=== PATIENT | male | born 1945 | race Caucasian/White ===

== ENCOUNTER 2016-09-04 22:37 | Inpatient (IN) | payer MEDICARE, OTHER ==
[2016-09-04] MEDS ORDERED: FUROSEMIDE INJ/PF 40 MG/4 ML SDV IV ONE (22:44)
[2016-09-04 23:07] LABS: HEMATOCRIT 42.7 % (37.9-51.0); HEMOGLOBIN 13.9 g/dL (13.5-17.0); MEAN CORPUSCULAR HEMOGLOBIN 27.7 pg (27.0-33.4); MEAN CORPUSCULAR HGB CONC 32.6 g/dL (32.0-36.0); MEAN CORPUSCULAR VOLUME 85 fl (80-97); RED BLOOD COUNT 5.01 10^6/uL (4.35-5.55); RED CELL DISTRIBUTION WIDTH 14.3 % (11.5-14.0); WHITE BLOOD COUNT 17.3 10^3/uL (4.0-10.5)
[2016-09-04 23:17] LABS: ALANINE AMINOTRANSFERASE 34 U/L (21-72); ALBUMIN 2.8 g/dL (3.5-5.0); ALKALINE PHOSPHATASE 140 U/L (38-126); ANION GAP 10 (5-19); ASPARTATE AMINO TRANSFERASE 20 U/L (17-59); BILIRUBIN,TOTAL 0.5 mg/dL (0.2-1.3); BLOOD UREA NITROGEN 23 mg/dL (7-20); CALCIUM 8.6 mg/dL (8.4-10.2); CARBON DIOXIDE 24 mmol/L (22-30); CHLORIDE 107 mmol/L (98-107); CREATINE KINASE 161 U/L (55-170); CREATININE RESULT 1.82 mg/dL (0.52-1.25); GLUCOSE 141 mg/dL (75-110); POTASSIUM 4.2 mmol/L (3.6-5.0); SODIUM 141.3 mmol/L (137-145); TOTAL PROTEIN 6.1 g/dL (6.3-8.2)
[2016-09-04 23:25] LABS: BAND NEUTROPHILS % (MANUAL) 5 % (3-5); BASOPHILS % (MANUAL) 0 % (0-2); EOSINOPHILS % (MANUAL) 0 % (0-6); LYMPHOCYTES % (MANUAL) 7 % (13-45); TOTAL CELLS COUNTED 100; TOXIC GRANULATION SLIGHT
[2016-09-04 23:26] LABS: ANISOCYTOSIS SLIGHT; BURR CELLS 1+; PLATELET CLUMPS PRESENT
[2016-09-04 23:27] LABS: CREATINE KINASE MB 1.23 ng/mL (<4.55); TROPONIN I 0.022 ng/mL
--- NOTE | 2016-09-04 23:41 | ER Document Report ---
ED General - General Chief Complaint: Breathing Difficulty Stated Complaint: RESPIRATORY PROBLEM Notes: Patient is a 71-year-old male presents with complaint of difficulty breathing. His held his Lasix 3 days ago because it is making him urinate too much. His difficulty getting up to bathroom on his own and also has urinary incontinence. He has a history of CHF. He started worsening breathing this morning which became much worse tonight. Paramedics arrived he was hypoxic and working hard to breathe. They placed Nitropaste on him and placement see Pap which has helped improve him. He denies any chest pain. Denies abdominal pain. He's had increased swelling in his legs last 24 hours. No fevers. No infections. No other complaints at this time. TRAVEL OUTSIDE OF THE [place] IN LAST 30 DAYS: No - Related Data Allergies/Adverse Reactions: Penicillins Allergy (Verified 04/13/16 19:16) Past Medical History - General Information source: Patient, Relative, Emergency Med Personnel - Social History Smoking Status: Unknown if Ever Smoked Frequency of alcohol use: None Drug Abuse: None Family History: Reviewed & Not Pertinent - Past Medical History Cardiac Medical History: Reports: Hx Congestive Heart Failure, Hx Hypercholesterolemia, Hx Hypertension Endocrine Medical History: Reports: Hx Diabetes Mellitus Type 2 Malignancy Medical History: Reports Hx Prostate Cancer Psychiatric Medical History: Reports: Hx Depression Past Surgical History: Reports: Hx Genitourinary Surgery - Prostate removed, Hx Orthopedic Surgery - cervical X3, lumbar X1 - Immunizations Hx Diphtheria, Pertussis, Tetanus Vaccination: Yes Hx Pneumococcal Vaccination: 06/06/11 Review of Systems - Review of Systems Notes: My Normal Review Basic REVIEW OF SYSTEMS: CONSTITUTIONAL : Denies fever, chills, or sweats. Denies recent illness. EENT: Denies eye, ear, throat, or mouth pain or symptoms. Denies nasal or sinus congestion. CARDIOVASCULAR: Denies chest pain. RESPIRATORY: Difficulty breathing GASTROINTESTINAL: Denies abdominal pain. Denies nausea, vomiting, or diarrhea. Denies constipation. Last BM: MUSCULOSKELETAL: Leg edema SKIN: Denies rash or skin lesions. NEUROLOGICAL: Denies altered mental status or loss of consciousness. Denies headache. Denies weakness or paralysis or loss of use of either side. Denies problems with gait or speech. Denies sensory or motor loss. ALL OTHER SYSTEMS REVIEWED AND NEGATIVE. Physical Exam - Vital signs Vitals: Resp Pulse Ox 20 99 09/04/16 22:40 09/04/16 22:40 - Notes Notes: General Appearance: Well nourished, alert, cooperative, mild to moderate acute distress, no obvious discomfort. Vitals: reviewed, See vital signs table. Head: no swelling or tenderness to the head Eyes: PERRL, EOMI, Conjuctiva clear Mouth: No decreasd moisture Neck: Supple, no neck tenderness, No thyromegaly Lungs: No wheezing, bibasilar rales, No rhonci, No accessory muscle use, good air exchange bilaterally. Heart: Normal rate, Regular rythm, No murmur, no rub Abdomen: Normal BS, soft, No rigidity, No abdominal tenderness, No guarding, no rebound, no abdominal masses, no organomegaly Extremities: strength 5/5 in all extremities, good pulses in all extremities, no swelling or tenderness in the extremities, no edema. Skin: warm, dry, appropriate color, no rash Neuro: speech clear, oriented x 3, normal affect, responds appropriately to questions. Course - Vital Signs Vital signs: Temp Pulse Resp BP Pulse Ox 101.9 F H 20 114/104 H 96 09/05/16 00:02 09/05/16 00:01 09/05/16 00:02 09/05/16 00:02 - Laboratory Result Diagrams: 09/04/16 22:45 09/04/16 22:45 Laboratory results interpreted by me: 09/04/16 09/04/16 09/04/16 22:45 22:45 22:45 WBC 17.3 H RDW 14.3 H Seg Neuts % (Manual) 86 H Lymphocytes % (Manual) 7 L Monocytes % (Manual) 2 L Abs Neuts (Manual) 15.7 H BUN 23 H Creatinine 1.82 H Est GFR ( Amer) 45 L Est GFR (Non-Af Amer) 37 L Glucose 141 H Alkaline Phosphatase 140 H NT-Pro-B Natriuret Pep 4390 H Total Protein 6.1 L Albumin 2.8 L - EKG Interpretation by Me Additional EKG results interpreted by me: 09/05/16 00:03 EKG is reviewed and interpreted by me. EKG shows normal sinus rhythm with rate of 80 bpm. Patient has one lead of ST segment elevation in lead 3. Thinks is related to his intraventricular conduction delay. There he does have a right bundle branch block. There is no cervical ST segment depression. This no other areas of ST segment elevation. This is not concerning for ischemia. NE interval is slightly prolonged. QRS duration QTC of vitals are prolonged. Old EKG for comparison is from 04/13/2016. - Transfer of Care Notes: 09/05/16 01:21 Patient developed a fever. His temp is 101. Will given Tylenol., Levaquin being that he had mostly respiratory symptoms associated with fever. Chest x- rays was normal however to me it appears he has fast or vesicle congestion and he had a lot of rails on initial presentation suggesting palmar edema especially with a history of stopping his Lasix 3 days ago and having increased edema in his legs. He doesn't history of urinary incontinence. We did place a Ghosh catheter. I will send the urine for urinalysis to see if there is any source of infection there either. He has had some congestion and sinus pressure last few days. This could've lead to pneumonia or sinus infection. I spoke with the hospital she agrees to that the patient. He is looking much more comfortable with the BiPAP and clinically is improving. Discharge - Discharge Clinical Impression: Congestive heart failure Qualifiers: Congestive heart failure type: unspecified congestive heart failure type Congestive heart failure chronicity: acute on chronic Qualified Code(s): I50.9 - Heart failure, unspecified Fever Qualifiers: Fever type: unspecified Qualified Code(s): R50.9 - Fever, unspecified Condition: Stable Disposition: ADMITTED OBSERVATION Admitting Provider: Hospitalist Unit Admitted: [facility]
[2016-09-05] MEDS ORDERED: LEVOFLOXACIN 750 MG/D5W RTU 150 ML IV ONE (01:17)
[2016-09-05] MEDS ORDERED: ACETAMINOPHEN 325 MG TABLET PO ONE (01:18)
[2016-09-05] MEDS ORDERED: FENTANYL CITRATE INJ/PF 100 MCG/2 ML AMPUL IV ONE ×2 (01:23→02:19)
[2016-09-05 02:19] LABS: VENOUS BLOOD BASE EXCESS -0.1 mmol/L; VENOUS BLOOD HCO3 23.7 mmol/L (20-32); VENOUS BLOOD PCO2 36.4 mmHg (35-63); VENOUS BLOOD PH 7.43 (7.30-7.42)
[2016-09-05 02:46] LABS: APPEARANCE,URINE CLEAR; BILIRUBIN,URINE NEGATIVE (NEGATIVE); GLUCOSE, URINE 50 mg/dL (NEGATIVE); KETONES,URINE NEGATIVE (NEGATIVE); LEUKOCYTE ESTERASE,URINE NEGATIVE (NEGATIVE); NITRITE,URINE NEGATIVE (NEGATIVE); PROTEIN,URINE 100 mg/dL (NEGATIVE); URINE SPECIFIC GRAVITY 1.008; UROBILINOGEN,URINE NEGATIVE mg/dL (<2.0)
[2016-09-05] MEDS ORDERED: IPRATROPIUM/ALBUTEROL 0.5-2.5 MG/3 ML AMPUL NEB PRN (04:06)
[2016-09-05] MEDS ORDERED: GUAIFENESIN SYRP 200 MG/10 ML UDC PO PRN (04:06)
[2016-09-05] MEDS ORDERED: GLUCAGON,HUMAN RECOMB 1 MG INJ IM PRN (04:08)
[2016-09-05] MEDS ORDERED: DEXTROSE 50%-WATER 25 GM/50 ML DISP.SYRIN IV PRN ×2 (04:08)
[2016-09-05] MEDS ORDERED: DEXTROSE 40% GEL 15 GM TUBE PO PRN ×2 (04:08)
[2016-09-05] MEDS ORDERED: PHARMACY COMMUNICATION ORDER MC NR (04:15)
--- NOTE | 2016-09-05 04:36 | PDOC H&P ---
History of Present Illness Admission Date/PCP: 09/05/16 02:10 IGNACIA SHORT MD Patient complains of: breathing problems History of Present Illness: BERNADETTE BURGOS is a 71 year old male with underlying chronic diastolic congestive heart failure who presents to the emergency room for evaluation of above complaint area Patient has been discussed with emergency room physician who evaluated the patient. 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 This, combined with his Lasix results in the need for not unexpected frequent urination. He also has problems over the last 6-7 months with intermittent difficulty walking on a waxing and waning basis. Is actually scheduled to be seen at [facility] by neurology for evaluation of this difficulty. As a result of the above factors, held his Lasix for the previous 3 days. During that time span, he has experienced slowly progressive difficulty breathing, along with progressive lower extremity swelling. Breathing difficulty particular worsened over the few hours prior to his being brought to the emergency room. EMS reported the patient being hypoxic, with fairly prominent work of breathing. Nitro paste was placed, along with CPAP which improved his symptoms. Was subsequently placed on BiPAP in the emergency room, along with intravenous Lasix and he is breathing much more comfortably now, tolerating being off BiPAP without difficulty. Has noted subjective fever during the above time span. His occasional cough has increased in frequency and is now productive of increased amounts of phlegm. No known chronic lung pathology including asthma or COPD. Up-to-date with both flu and pneumonia vaccinations. Fever to 101.9 on arrival in the emergency room. No previous myocardial infarction, pulmonary embolus, or DVT. Patient also has frequent contact with a [id number] grandchild. Concerning his ambulatory difficulty, states this will gradually progress to the point where he simply cannot walk at all due to generalized weakness in his lower extremities. That has actually been the case on the . She states this is typically followed by gradual regaining of some of the strength in his lower extremities, to the point where he can get about with a walker. Concomitant medical problems include arthritis, easy bruising, status post excision of a number of skin cancers, type I diabetes mellitus, hyperlipidemia, partial hearing loss, stage III chronic kidney disease, and posttraumatic stress disorder. He also has a distant history of 3 separate seizure episodes, greater than 20 years ago. Is not currently on medication for same. Laboratory results are listed in [employer] and are reviewed. X-ray summary results are listed below, with full report(s) reviewed. . EKG reviewed and compared to prior tracing from April 14 of this year. Social history/personal habits: . Has children. Retired. No use of alcohol tobacco or illicit drugs. Should patient become mentally incapacitated, surrogate health care decision maker , who is present at his side with his approval.. Family History : Daughter has recently undergone thyroid surgery. Sister with heart problems. Father of a heart attack. Likewise for mother. Allergies/adverse reactions are listed in [employer] and are reviewed. Uncertain if he can tolerate cephalosporins. Home medications are reviewed by bottle review and discussion with patient and and are to be reconciled by nursing staff in [facility]. Home medications initially autopopulated into [employer] may not accurately reflect patient's true medications, dosages, and/or frequencies. REVIEW OF SYSTEMS: Constitutional: See history and present illness. Eyes: Wears glasses. ENT: No swallowing problems or complaints. Partial hearing loss. Pulmonary: See history and present illness. Cardiovascular: See history and present illness. Gastrointestinal: No current complaints, including nausea or vomiting. Skin: No current complaints, including rashes. Hematologic: Easy bruising. Neurologic: See history and present illness. Musculoskeletal: Joint pain from arthritis. Psychiatric: Mild Anxiety depression; denies suicidal or homicidal ideation. Endocrine: No current complaints, including polyuria. Genitourinary: No current complaints, including dysuria. PHYSICAL EXAMINATION: 5 feet 9 inches tall. 118.8 kg. BMI 38.7 kg/m. Blood pressure 155/71. Pulse 86 and regular. 96% saturation on 2 L oxygen per nasal cannula. Respirations are 18 and unlabored. Temperature 100.6; 101.9 earlier. Obese otherwise well-developed male appearing perhaps a bit older than his stated age. Appears slightly fatigued, but otherwise pleasant awake alert and cooperative. Mildly anxious, although no agitation. is present at his side; patient approves. Skin is warm and slightly moist. No grossly obvious evidence of rash in areas of skin examined. No subcutaneous nodules palpated. ENT: Perhaps Mildly hard of hearing to normal conversation. Tongue midline on protrusion pink and slightly moist. Eyes: No scleral icterus. Pupils equal and reactive to light at 4 mm. [place] conjunctivae. Neck is supple and nontender to gentle active range of motion and palpation. Midline trachea. No palpable thyroid nodule mass enlargement or tenderness. Lymphatic: No palpable cervical or clavicular nodes. Neck and lymphatic exams limited by patient body habitus. Psychiatric: Reasonable insight into acute and chronic medical issues. Oriented to time location and why here. Lungs: Auscultation reveals equal breath sounds bilaterally. Faint brief expiratory wheeze on occasion bilaterally. No use of accessory respiratory muscles. Cardiovascular: Heart regular rate and rhythm, without gallop murmur or rub. No carotid or abdominal aortic bruits. Mild slightly pitting symmetric calf ankle and pedal edema; of note, states swelling has decreased since arrival in the emergency room and treatment. Faintly palpable dorsalis pedis pulses. Abdomen: soft, obese, nontender with positive bowel sounds. Unable to adequately evaluate abdomen for masses or organomegaly due to body habitus. Extremities: Feet are warm and dry. No calf tenderness to compression. Gentle manipulation of lower extremities fails to reveal any obvious evidence of injury or instability to knees hips or ankles. Neurologic: Moves upper extremities grossly normally. Patellar reflexes absent. Absent Babinski. Light touch is intact at feet. Dorsiflexion and plantarflexion of feet 5 / 5 and symmetric. Past Medical History Cardiac Medical History: Reports: Congestive Heart Failure - diastolic, Hyperlipidema, Hypertension Denies: DVT, Myocardial Infarction, Pulmonary Embolism Pulmonary Medical History: Denies: Asthma, Chronic Obstructive Pulmonary Disease (COPD) EENT Medical History: Reports: Eyes - glasses, Ears - PAUMA Denies: Throat Neurological Medical History: Reports: Seizures - X 3 > 20 yrs ago; no Rx, Other - ambulatory difficulty X 6-7 mos.; [facility] neuro appt, 09/22 Denies: Hemorrhagic CVA, Ischemic CVA Endocrine Medical History: Reports: Diabetes Mellitus Type 1 Denies: Diabetes Mellitus Type 2, Hyperthyroidism, Hypothyroidism Renal/ Medical History: Reports: Chronic Kidney Disease - III Malignancy Medical History: Reports: Skin Cancer, Other - s/p prostatectomy; bladder GI Medical History: Denies: Cirrhosis, Gastroesophageal Reflux Disease, Hepatitis, Peptic Ulcer Disease Musculoskeltal Medical History: Reports: Arthritis Skin Medical History: Denies: Eczema, Psoriasis Psychiatric Medical History: Reports: Depression, Post Traumatic Stress Disorder Denies: Alcohol Dependency, Substance Abuse, Tobacco Dependency Hematology: Reports: Other - easy bruising Infectious Medical History: Denies: Hepatitis B, Hepatitis C Past Surgical History Past Surgical History: Reports: Orthopedic Surgery - cervical X3, lumbar X1, Other - Excision of skin cancers. Total prostatectomy. Bladder surgery 3. Social History Information Source: Patient, Relative, Emergency Med Personnel, [facility] Records Lives with: Spouse/Significant other Smoking Status: Unknown if Ever Smoked Frequency of Alcohol Use: None Hx Recreational Drug Use: No Drugs: None Hx Prescription Drug Abuse: No - Advance Directive Resuscitation Status: Full Code Family History Family History: Reviewed & Not Pertinent Parental Family History Reviewed: Yes Children Family History Reviewed: Yes Sibling(s) Family History Reviewed.: Yes Medication/Allergy Home Medications: RX: Furosemide [Lasix] 40 mg PO DAILY 11/21/15 RX: Lisinopril 20 mg PO DAILY 11/21/15 RX: Metoprolol Tartrate [Lopressor 50 mg Tablet] 50 mg PO Q12H 11/21/15 RX: Pantoprazole Sodium 40 mg PO DAILY 11/21/15 RX: Rosuvastatin Calcium [Crestor 20 mg Tablet] 20 mg PO QHS 11/21/15 RX: Cetirizine HCl [All Day Allergy] 10 mg PO DAILY 04/14/16 RX: Bupropion HCl [Wellbutrin Xl 300mg 24hr Tablet] 1 tab PO DAILY 09/05/16 RX: Cholecalciferol (Vitamin D3) [Vitamin D3 1000 Unit Tablet] 1,000 unit PO DAILY 09/05/16 RX: Multivitamin/Iron/Folic Acid [Centrum Complete Multivit Tab] 1 each PO DAILY 09/05/16 RX: Acetaminophen [Tylenol 325 mg Tablet] 650 mg PO Q6HP PRN tablet 09/07/16 RX: Azithromycin [Zithromax 250 mg Tablet] 250 mg PO DAILY #5 tablet 09/07/16 RX: Glipizide [Glucotrol 5 mg Tablet] 5 mg PO BID tablet 09/07/16 RX: Guaifenesin [Mucinex Sr 600 mg Tablet.sa] 1,200 mg PO Q12 #30 tablet.sa 10/23 RX: Insulin Glargine,Hum.rec.anlog [Lantus Insulin 100 Unit/1 ml 10 ml] 40 unit SUBCUT BID unit 09/07/16 RX: Tramadol HCl [Ultram 50 mg Tablet] 50 mg PO Q6HP PRN #30 tablet 09/07/16 Allergies/Adverse Reactions: Penicillins Allergy (Verified 04/13/16 19:16) Physical Exam Vital Signs: Temp Pulse Resp BP Pulse Ox 100.6 F H 22 H 155/71 H 97 09/05/16 03:02 09/05/16 03:02 09/05/16 03:02 09/05/16 03:02 Results Laboratory Results: 09/05/16 02:15 Urine Color STRAW Urine Appearance CLEAR Urine pH 5.0 Ur Specific Jones 1.008 Urine Protein 100 H Urine Glucose (UA) 50 H Urine Ketones NEGATIVE Urine Blood MODERATE H Urine Nitrite NEGATIVE Ur Leukocyte Esterase NEGATIVE Urine WBC (Auto) 1 Urine RBC (Auto) 70 Impressions: Chest X-Ray 09/04/16 22:43 IMPRESSION: NO ACUTE RADIOGRAPHIC FINDING IN THE CHEST. Assessment & Plan - Diagnosis (1) Acute on chronic diastolic (congestive) heart failure Is this a current diagnosis for this admission?: YesPlan: Likely secondary to his not taking his Lasix for the past 3 days. Symptomatically much improved, tolerating nasal cannula oxygen, off BiPAP, with treatment so far. Excellent urine output so far. Repeat troponin. I have strongly encouraged patient not to get out of bed without notifying staff , to avoid a fall with injury. Knee high SCDs for DVT prophylaxis, along with subcutaneous heparin. Impression and plans were discussed with patient, and , both of whom concur. Time spent in evaluation and management of patient: 68 minutes. (2) Fever Qualifiers: Fever type: unspecified Qualified Code(s): R50.9 - Fever, unspecified Is this a current diagnosis for this admission?: YesPlan: No obvious specific source, but given patient's pulmonary complaints, will treat as for community-acquired pneumonia. No chronic underlying pulmonary pathology such as asthma or COPD. Patient does have regular contact with a 20- month-old grandchild. (3) Noncompliance Is this a current diagnosis for this admission?: Yes (4) Lower extremity weakness Qualifiers: Laterality: bilateral Qualified Code(s): R29.898 - Other symptoms and signs involving the musculoskeletal system Is this a current diagnosis for this admission?: YesPlan: Waxing and waning symptoms for the past 7 months. too weak even to walk for the past 12 hours or so, which states is part of his pattern. She states he should regain enough strength in the next day or so to ambulate with a walker. Scheduled to see neurology at [facility] concerning same the of next month. (5) Pneumonia Qualifiers: Pneumonia type: due to unspecified organism Lung location: unspecified part of lung Is this a current diagnosis for this admission?: YesPlan: See comments under "fever" above. Patient will be admitted under [pneumonia] protocol. Incentive spirometry twice a day. [PRN] DuoNeb's. Antibiotics will consist of Rocephin and intravenous Zithromax. I strongly encouraged patient to notify staff should patient feel that respiratory status is worsening. (6) Ambulatory dysfunction Is this a current diagnosis for this admission?: Yes (7) CKD (chronic kidney disease), stage III Is this a current diagnosis for this admission?: YesPlan: Stable. Follow-up chemistry. (8) Diabetes mellitus type 1 Qualifiers: Diabetes mellitus complication status: without complication Qualified Code(s): E10.9 - Type 1 diabetes mellitus without complications Is this a current diagnosis for this admission?: YesPlan: Cardiac diabetic prerenal diet. Accu-Cheks with appropriate sliding scale coverage.Resume home medications as appropriate once these have been reviewed. - Inpatient Certification Based on my medical assessment, after consideration of the patient's comorbidities, presenting symptoms, or acuity I expect that the services needed warrant INPATIENT care.: Yes I certify that my determination is in accordance with my understanding of Medicare's requirements for reasonable and necessary INPATIENT services [42 CFR 412.3e].: Yes Medical Necessity: Need Close Monitoring Due to Risk of Patient Decompensation, Need For Continuous Telemetry Monitoring, Need for IV Antibiotics, Risk of Complication if Not Cared For in Hospital, Risk of Diagnosis Which Will Require Inpatient Eval/Care/Monitoring Post Hospital Care: D/C or Transfer Summary
[2016-09-05 06:17] LABS: ABSOLUTE BASOPHILS # (AUTO) 0.1 10^3/uL (0.0-0.2); ABSOLUTE LYMPHOCYTES (AUTO) 1.5 10^3/uL (0.5-4.7); ABSOLUTE MONOCYTES (AUTO) 1.3 10^3/uL (0.1-1.4); BASOPHILS % (AUTO) 0.5 % (0-2); EOSINOPHILS % (AUTO) 0.2 % (0-6); LYMPHOCYTES % (AUTO) 10.8 % (13-45); MEAN CORPUSCULAR HEMOGLOBIN 28.2 pg (27.0-33.4); MEAN CORPUSCULAR HGB CONC 33.3 g/dL (32.0-36.0); MEAN CORPUSCULAR VOLUME 85 fl (80-97); MONOCYTES % (AUTO) 9.1 % (3-13); RED BLOOD COUNT 4.61 10^6/uL (4.35-5.55); RED CELL DISTRIBUTION WIDTH 14.2 % (11.5-14.0); SEGMENTED NEUTROPHILS % (AUTO) 79.4 % (42-78); WHITE BLOOD COUNT 13.9 10^3/uL (4.0-10.5)
[2016-09-05] MEDS ORDERED: AZTREONAM INJ 1 GM VIAL ONE (06:36)
[2016-09-05 06:39] LABS: ANION GAP 10 (5-19); BLOOD UREA NITROGEN 23 mg/dL (7-20); CALCIUM 8.7 mg/dL (8.4-10.2); CARBON DIOXIDE 23 mmol/L (22-30); CHLORIDE 108 mmol/L (98-107); CREATININE RESULT 1.94 mg/dL (0.52-1.25); GLUCOSE 123 mg/dL (75-110); MAGNESIUM 1.6 mg/dL (1.6-2.3); POTASSIUM 3.9 mmol/L (3.6-5.0); SODIUM 140.8 mmol/L (137-145)
--- NOTE | 2016-09-05 06:39 | EKG REPORT ---
SEVERITY:- ABNORMAL ECG - SINUS RHYTHM RIGHT BUNDLE BRANCH BLOCK FIRST DEGREE AVB LPFB : Confirmed by: Emanuel Alejandro MD 05-Sep-2016 06:38:10
[2016-09-05] MEDS: HEPARIN SOD (PORCINE) 5,000 UNIT/ML 1 ML SYRINGE SUBCUT SCH ×3 (06:51→21:13)
[2016-09-05] MEDS: AZTREONAM 1 GM in DEXTROSE 5%-WATER 50 ML IV SCH ×3 (06:54→21:13)
--- NOTE | 2016-09-05 09:02 | PDOC PROGRESS REPORT ---
Subjective Progress Note for:: 09/05/16 Subjective:: Patient is seen on morning rounds. He is presently resting comfortably in bed. He is awake, alert and oriented x 3 . He states he is breathing easier than admission. He denies any chest pain, dyspnea or dizziness. He does complain of a headache and low back discomfort. He denies any nausea, vomiting or dysuria. His is at his bedside. Physical Exam Vital Signs: Temp Pulse Resp BP Pulse Ox 97.6 F 89 16 150/60 H 96 09/05/16 07:29 09/05/16 08:33 09/05/16 08:33 09/05/16 07:29 09/05/16 08:33 Intake & Output 09/04/16 09/05/16 09/06/16 06:59 06:59 06:59 Intake Total 10 Balance 10 Weight 118.841 kg General appearance: PRESENT: no acute distress, well-developed, well-nourished Head exam: PRESENT: atraumatic, normocephalic Eye exam: PRESENT: conjunctiva pink, EOMI, PERRLA. ABSENT: scleral icterus Ear exam: PRESENT: normal external ear exam Mouth exam: PRESENT: moist, tongue midline Neck exam: ABSENT: carotid bruit, JVD, lymphadenopathy, thyromegaly Respiratory exam: PRESENT: rhonchi, symmetrical, unlabored Cardiovascular exam: PRESENT: RRR. ABSENT: diastolic murmur, rubs, systolic murmur Vascular exam: PRESENT: normal capillary refill GI/Abdominal exam: PRESENT: normal bowel sounds, soft. ABSENT: distended, guarding, mass, organolmegaly, rebound, tenderness Rectal exam: PRESENT: deferred Extremities exam: PRESENT: full ROM. ABSENT: calf tenderness, clubbing, pedal edema Neurological exam: PRESENT: alert, awake, oriented to person, oriented to place , oriented to time, oriented to situation, CN II-XII grossly intact. ABSENT: motor sensory deficit Psychiatric exam: PRESENT: appropriate affect, normal mood. ABSENT: homicidal ideation, suicidal ideation Skin exam: PRESENT: dry, intact, warm. ABSENT: cyanosis, rash Results Laboratory Results: 09/05/16 05:33 09/05/16 05:33 09/05/16 09/05/16 05:33 05:33 WBC 13.9 H RBC 4.61 Hgb 13.0 L Hct 39.0 MCV 85 MCH 28.2 MCHC 33.3 RDW 14.2 H Plt Count 304 Seg Neutrophils % 79.4 H Lymphocytes % 10.8 L Monocytes % 9.1 Eosinophils % 0.2 Basophils % 0.5 Absolute Neutrophils 11.0 H Absolute Lymphocytes 1.5 Absolute Monocytes 1.3 Absolute Eosinophils 0.0 Absolute Basophils 0.1 Sodium 140.8 Potassium 3.9 Chloride 108 H Carbon Dioxide 23 Anion Gap 10 BUN 23 H Creatinine 1.94 H Est GFR ( Amer) 41 L Est GFR (Non-Af Amer) 34 L Glucose 123 H Calcium 8.7 Magnesium 1.6 09/05/16 05:33 Troponin I 0.042 Impressions: Chest X-Ray 09/04/16 22:43 IMPRESSION: NO ACUTE RADIOGRAPHIC FINDING IN THE CHEST. Assessment & Plan - Diagnosis (1) Acute on chronic diastolic (congestive) heart failure Is this a current diagnosis for this admission?: YesPlan: Patient is being diuresed. Will continue to monitor (2) Fever Qualifiers: Fever type: unspecified Qualified Code(s): R50.9 - Fever, unspecified Is this a current diagnosis for this admission?: YesPlan: Presently afebrile (3) Lower extremity weakness Qualifiers: Laterality: bilateral Qualified Code(s): R29.898 - Other symptoms and signs involving the musculoskeletal system Is this a current diagnosis for this admission?: Yes (4) Pneumonia Qualifiers: Pneumonia type: due to unspecified organism Lung location: unspecified part of lung Is this a current diagnosis for this admission?: YesPlan: Presently on broad spectrum IV antibiotics. Cultures pending (5) Accelerated hypertension Is this a current diagnosis for this admission?: YesPlan: Currently normotensive on current medication (6) Ambulatory dysfunction Is this a current diagnosis for this admission?: YesPlan: Ongoing over the last 7 months. 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
[2016-09-05] MEDS: METOPROLOL TARTRATE 50 MG TABLET PO SCH ×2 (09:42→21:13)
[2016-09-05] MEDS: GLIPIZIDE 5 MG TABLET PO SCH ×2 (09:43→18:00)
[2016-09-05] MEDS ORDERED: FUROSEMIDE INJ/PF 40 MG/4 ML SDV IV ONE (10:00)
[2016-09-05] MEDS ORDERED: INSULIN GLARGINE,HUM.REC.ANLOG 1,000 UNIT/10 ML UNIT SUBCUT SCH (10:00)
[2016-09-05] MEDS: ACETAMINOPHEN 325 MG TABLET PO PRN (10:03)
[2016-09-05] MEDS: AZITHROMYCIN 500 MG in DEXTROSE 5%-WATER 250 ML IV SCH (10:04)
[2016-09-05] MEDS: INSULIN LISPRO 100 UNIT/ML 3 ML VIAL SUBCUT PRN ×2 (13:19→21:37)
[2016-09-05] MEDS: INSULIN GLARGINE,HUM.REC.ANLOG 1,000 UNIT/10 ML UNIT SUBCUT SCH (17:58)
[2016-09-06] MEDS: TRAMADOL HCL 50 MG TABLET PO PRN ×3 (01:01→20:05)
[2016-09-06 04:36] LABS: ABSOLUTE BASOPHILS # (AUTO) 0.1 10^3/uL (0.0-0.2); ABSOLUTE EOSINOPHILS # (AUTO) 0.1 10^3/uL (0.0-0.6); ABSOLUTE NEUT (AUTO) 8.1 10^3/uL (1.7-8.2); BASOPHILS % (AUTO) 0.6 % (0-2); EOSINOPHILS % (AUTO) 1.1 % (0-6); HEMATOCRIT 39.1 % (37.9-51.0); HEMOGLOBIN 13.2 g/dL (13.5-17.0); HGB HCT DIFFERENCE 0.5; LYMPHOCYTES % (AUTO) 10.1 % (13-45); MEAN CORPUSCULAR HEMOGLOBIN 28.4 pg (27.0-33.4); MEAN CORPUSCULAR HGB CONC 33.8 g/dL (32.0-36.0); MEAN CORPUSCULAR VOLUME 84 fl (80-97); MONOCYTES % (AUTO) 9.7 % (3-13); RED BLOOD COUNT 4.66 10^6/uL (4.35-5.55); RED CELL DISTRIBUTION WIDTH 14.3 % (11.5-14.0); SEGMENTED NEUTROPHILS % (AUTO) 78.5 % (42-78); WHITE BLOOD COUNT 10.2 10^3/uL (4.0-10.5)
[2016-09-06 05:10] LABS: ANION GAP 10 (5-19); BLOOD UREA NITROGEN 29 mg/dL (7-20); CALCIUM 8.5 mg/dL (8.4-10.2); CARBON DIOXIDE 25 mmol/L (22-30); CHLORIDE 106 mmol/L (98-107); CREATININE RESULT 1.98 mg/dL (0.52-1.25); GLUCOSE 140 mg/dL (75-110); POTASSIUM 3.9 mmol/L (3.6-5.0); SODIUM 140.7 mmol/L (137-145)
[2016-09-06] MEDS: AZTREONAM 1 GM in DEXTROSE 5%-WATER 50 ML IV SCH (06:50)
[2016-09-06] MEDS: HEPARIN SOD (PORCINE) 5,000 UNIT/ML 1 ML SYRINGE SUBCUT SCH ×3 (06:50→21:15)
[2016-09-06] MEDS: INSULIN LISPRO 100 UNIT/ML 3 ML VIAL SUBCUT PRN ×4 (07:43→21:23)
[2016-09-06] MEDS: INSULIN GLARGINE,HUM.REC.ANLOG 1,000 UNIT/10 ML UNIT SUBCUT SCH ×2 (08:58→17:03)
[2016-09-06] MEDS: LISINOPRIL 10 MG TABLET PO SCH (09:02)
[2016-09-06] MEDS: LORATADINE 10 MG TABLET PO SCH (09:02)
[2016-09-06] MEDS: METOPROLOL TARTRATE 50 MG TABLET PO SCH ×2 (09:02→21:15)
[2016-09-06] MEDS: FUROSEMIDE 40 MG TABLET PO SCH (09:02)
[2016-09-06] MEDS: GLIPIZIDE 5 MG TABLET PO SCH ×2 (09:02→17:05)
[2016-09-06] MEDS: AZITHROMYCIN 500 MG in DEXTROSE 5%-WATER 250 ML IV SCH (09:05)
[2016-09-06] MEDS: LACTOBACILLUS ACIDOPHILUS 250 MG TAB PO SCH ×2 (09:43→17:05)
--- NOTE | 2016-09-06 10:19 | PDOC PROGRESS REPORT ---
Subjective Progress Note for:: 09/06/16 Subjective:: Patient is seen on morning rounds. He is presently resting comfortably in bed. He is awake, alert and oriented x 3 . He states continues to improve. He denies any chest pain, dyspnea or dizziness. He states the only pain he is having is from bladder spasms and he gets these at home as well. He had some small blood clots noted overnight in his taylor tubing. He has to straight cath himself at home due to urinary retention. He denies any nausea, vomiting or diarrhea today. He did have one episode of diarrhea last night. His is at his bedside. Physical Exam Vital Signs: Temp Pulse Resp BP Pulse Ox 98.4 F 76 22 H 160/87 H 93 09/06/16 08:17 09/06/16 08:17 09/06/16 08:17 09/06/16 08:17 09/06/16 08:17 Intake & Output 09/05/16 09/06/16 09/07/16 06:59 06:59 06:59 Intake Total 10 1750 Output Total 2500 Balance 10 -750 Weight 118.841 kg 123.7 kg General appearance: PRESENT: no acute distress, morbidly obese, well-developed, well-nourished Head exam: PRESENT: atraumatic, normocephalic Eye exam: PRESENT: conjunctiva pink, EOMI, PERRLA. ABSENT: scleral icterus Ear exam: PRESENT: normal external ear exam Mouth exam: PRESENT: moist, tongue midline Neck exam: ABSENT: carotid bruit, JVD, lymphadenopathy, thyromegaly Respiratory exam: PRESENT: accessory muscle use Cardiovascular exam: PRESENT: RRR. ABSENT: diastolic murmur, rubs, systolic murmur Vascular exam: PRESENT: normal capillary refill GI/Abdominal exam: PRESENT: normal bowel sounds, soft. ABSENT: distended, guarding, mass, organolmegaly, rebound, tenderness Rectal exam: PRESENT: deferred Extremities exam: PRESENT: full ROM. ABSENT: calf tenderness, clubbing, pedal edema Neurological exam: PRESENT: alert, awake, oriented to person, oriented to place , oriented to time, oriented to situation, CN II-XII grossly intact. ABSENT: motor sensory deficit Psychiatric exam: PRESENT: appropriate affect, normal mood. ABSENT: homicidal ideation, suicidal ideation Skin exam: PRESENT: dry, intact, warm. ABSENT: cyanosis, rash Results Laboratory Results: 09/06/16 04:12 09/06/16 04:12 09/06/16 09/06/16 04:12 04:12 WBC 10.2 RBC 4.66 Hgb 13.2 L Hct 39.1 MCV 84 MCH 28.4 MCHC 33.8 RDW 14.3 H Plt Count 300 Seg Neutrophils % 78.5 H Lymphocytes % 10.1 L Monocytes % 9.7 Eosinophils % 1.1 Basophils % 0.6 Absolute Neutrophils 8.1 Absolute Lymphocytes 1.0 Absolute Monocytes 1.0 Absolute Eosinophils 0.1 Absolute Basophils 0.1 Sodium 140.7 Potassium 3.9 Chloride 106 Carbon Dioxide 25 Anion Gap 10 BUN 29 H Creatinine 1.98 H Est GFR ( Amer) 40 L Est GFR (Non-Af Amer) 33 L Glucose 140 H Calcium 8.5 09/05/16 05:33 Troponin I 0.042 Impressions: Chest X-Ray 09/04/16 22:43 IMPRESSION: NO ACUTE RADIOGRAPHIC FINDING IN THE CHEST. Assessment & Plan - Diagnosis (1) Acute on chronic diastolic (congestive) heart failure Is this a current diagnosis for this admission?: YesPlan: Patient is being diuresed. Will continue to monitor (2) Fever Qualifiers: Fever type: unspecified Qualified Code(s): R50.9 - Fever, unspecified Is this a current diagnosis for this admission?: YesPlan: Presently afebrile. Continue broad spectrum antibiotics and await culture results (3) Lower extremity weakness Qualifiers: Laterality: bilateral Qualified Code(s): R29.898 - Other symptoms and signs involving the musculoskeletal system Is this a current diagnosis for this admission?: YesPlan: Physical therapy consulted (4) Pneumonia Qualifiers: Pneumonia type: due to unspecified organism Lung location: unspecified part of lung Is this a current diagnosis for this admission?: YesPlan: Presently on broad spectrum IV antibiotics. Cultures pending (5) Accelerated hypertension Is this a current diagnosis for this admission?: YesPlan: Currently normotensive on current medication (6) Ambulatory dysfunction Is this a current diagnosis for this admission?: YesPlan: Ongoing over the last 7 months. Scheduled to see neurology at [facility]. 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
[2016-09-07] MEDS: ACETAMINOPHEN 325 MG TABLET PO PRN (01:45)
[2016-09-07 04:42] LABS: ABSOLUTE BASOPHILS # (AUTO) 0.1 10^3/uL (0.0-0.2); ABSOLUTE EOSINOPHILS # (AUTO) 0.4 10^3/uL (0.0-0.6); ABSOLUTE LYMPHOCYTES (AUTO) 1.6 10^3/uL (0.5-4.7); ABSOLUTE MONOCYTES (AUTO) 0.9 10^3/uL (0.1-1.4); ABSOLUTE NEUT (AUTO) 6.2 10^3/uL (1.7-8.2); BASOPHILS % (AUTO) 0.8 % (0-2); EOSINOPHILS % (AUTO) 4.3 % (0-6); HEMATOCRIT 38.9 % (37.9-51.0); HEMOGLOBIN 12.8 g/dL (13.5-17.0); HGB HCT DIFFERENCE -0.5; LYMPHOCYTES % (AUTO) 17.7 % (13-45); MEAN CORPUSCULAR HEMOGLOBIN 27.8 pg (27.0-33.4); MEAN CORPUSCULAR VOLUME 84 fl (80-97); MONOCYTES % (AUTO) 9.7 % (3-13); RED BLOOD COUNT 4.62 10^6/uL (4.35-5.55); SEGMENTED NEUTROPHILS % (AUTO) 67.5 % (42-78); WHITE BLOOD COUNT 9.2 10^3/uL (4.0-10.5)
[2016-09-07 05:10] LABS: ANION GAP 14 (5-19); BLOOD UREA NITROGEN 30 mg/dL (7-20); CARBON DIOXIDE 23 mmol/L (22-30); CHLORIDE 106 mmol/L (98-107); CREATININE RESULT 1.91 mg/dL (0.52-1.25); GLUCOSE 64 mg/dL (75-110); POTASSIUM 3.9 mmol/L (3.6-5.0); SODIUM 142.9 mmol/L (137-145)
[2016-09-07] MEDS: HEPARIN SOD (PORCINE) 5,000 UNIT/ML 1 ML SYRINGE SUBCUT SCH (05:12)
[2016-09-07] MEDS: AZITHROMYCIN 500 MG in DEXTROSE 5%-WATER 250 ML IV SCH (09:36)
[2016-09-07] MEDS: INSULIN GLARGINE,HUM.REC.ANLOG 1,000 UNIT/10 ML UNIT SUBCUT SCH (09:39)
[2016-09-07] MEDS: METOPROLOL TARTRATE 50 MG TABLET PO SCH (09:43)
[2016-09-07] MEDS: GLIPIZIDE 5 MG TABLET PO SCH (09:43)
[2016-09-07] MEDS: LORATADINE 10 MG TABLET PO SCH (09:43)
[2016-09-07] MEDS: FUROSEMIDE 40 MG TABLET PO SCH (09:44)
[2016-09-07] MEDS: LISINOPRIL 10 MG TABLET PO SCH (09:44)
[2016-09-07] MEDS: LACTOBACILLUS ACIDOPHILUS 250 MG TAB PO SCH (09:45)
[2016-09-07] MEDS ORDERED: AZITHROMYCIN 250 MG TABLET PO ONE (11:00)
[2016-09-07 12:49] VITALS: BP 158/62
--- NOTE | 2016-09-07 14:27 | PDOC DISCHARGE SUMMARY ---
General - Admit/Disc Date/PCP Admission Date/Primary Care Provider: 09/05/16 04:07 IGNACIA SHORT MD Discharge Date: 09/07/16 - \ - Discharge Diagnosis (1) Acute on chronic diastolic (congestive) heart failure Is this a current diagnosis for this admission?: Yes (2) Fever Is this a current diagnosis for this admission?: Yes (3) Lower extremity weakness Is this a current diagnosis for this admission?: YesSummary: Improved to baseline. Will need home health PT (4) Pneumonia Is this a current diagnosis for this admission?: YesSummary: Improved. Will be discharged home with 5 days of Azithromycin (5) Accelerated hypertension Is this a current diagnosis for this admission?: YesSummary: Resolved with adjustment in medications (6) Ambulatory dysfunction Is this a current diagnosis for this admission?: YesSummary: Patient has appointment with neurology at [facility] (7) Diabetes mellitus Is this a current diagnosis for this admission?: YesSummary: Continue current medications (8) CKD (chronic kidney disease), stage III Is this a current diagnosis for this admission?: YesSummary: Resolved back to baseline with hydration - Additional Information Resuscitation Status: Full Code Discharge Diet: Diabetic Discharge Activity: Activity As Tolerated, Balance Activity w/Rest, Weigh Daily Home Medications: Furosemide [Lasix] 40 mg PO DAILY 11/21/15 Lisinopril 20 mg PO DAILY 11/21/15 Metoprolol Tartrate [Lopressor 50 mg Tablet] 50 mg PO Q12H 11/21/15 Pantoprazole Sodium 40 mg PO DAILY 11/21/15 Rosuvastatin Calcium [Crestor 20 mg Tablet] 20 mg PO QHS 11/21/15 Cetirizine HCl [All Day Allergy] 10 mg PO DAILY 04/14/16 Bupropion HCl [Wellbutrin Xl 300mg 24hr Tablet] 1 tab PO DAILY 09/05/16 Cholecalciferol (Vitamin D3) [Vitamin D3 1000 Unit Tablet] 1,000 unit PO DAILY 09/05/16 Multivitamin/Iron/Folic Acid [Centrum Complete Multivit Tab] 1 each PO DAILY Acetaminophen [Tylenol 325 mg Tablet] 650 mg PO Q6HP PRN tablet 09/07/16 Azithromycin [Zithromax 250 mg Tablet] 250 mg PO DAILY #5 tablet 09/07/16 Glipizide [Glucotrol 5 mg Tablet] 5 mg PO BID tablet 09/07/16 Guaifenesin [Mucinex Sr 600 mg Tablet.sa] 1,200 mg PO Q12 #30 tablet.sa Insulin Glargine,Hum.rec.anlog [Lantus Insulin 100 Unit/1 ml 10 ml] 40 unit SUBCUT BID unit 09/07/16 Tramadol HCl [Ultram 50 mg Tablet] 50 mg PO Q6HP PRN #30 tablet 09/07/16 History of Present Illness History of Present Illness: BERNADETTE BURGOS is a 71 year old male presented to [facility] with cough, shortness of breath and fever. He has productive cough for the last 2 days prior to admission. He has not been taking his Lasix because he has increased difficulty walking and weakness. He notes swelling in his lower extremities. Fever on arrival at the ED of 101.9F. His chest xray did not initially show a pneumonia. He was diagnosed by exam. He was started on emipiric antibiotics and referred to the hospitalist service for admission. Hospital Course Hospital Course: Patient was admitted to [facility] on the hospitalist service. He was on empiric broad spectrum antibiotics and nebulizer treatments. He was diuresed with IV lasix as well. His fever resolved the following day. His leucocytosis resolved over the next 2 days. His cough and dyspnea improved. He had physical therapy evaluation who felt he would benefit from home health PT for his difficulty ambulating. Today he feels back to his baseline and wishes to go home. Physical Exam Vital Signs: Temp Pulse Resp BP Pulse Ox 97.7 F 75 20 152/72 H 99 09/07/16 11:29 09/07/16 11:29 09/07/16 11:29 09/07/16 11:29 09/07/16 11:29 Intake & Output 09/06/16 09/07/16 09/08/16 06:59 06:59 06:59 Intake Total 1750 1891 840 Output Total 3633 8215 250 Balance -750 580 435 Weight 123.7 kg 125 kg General appearance: PRESENT: no acute distress, morbidly obese, well-developed, well-nourished Head exam: PRESENT: atraumatic, normocephalic Eye exam: PRESENT: conjunctiva pink, EOMI, PERRLA. ABSENT: scleral icterus Ear exam: PRESENT: normal external ear exam Mouth exam: PRESENT: moist, tongue midline Neck exam: ABSENT: carotid bruit, JVD, lymphadenopathy, thyromegaly Respiratory exam: PRESENT: crackles - right base, symmetrical, unlabored Cardiovascular exam: PRESENT: RRR. ABSENT: diastolic murmur, rubs, systolic murmur Pulses: PRESENT: normal dorsalis pedis pul Vascular exam: PRESENT: normal capillary refill GI/Abdominal exam: PRESENT: normal bowel sounds, soft. ABSENT: distended, guarding, mass, organolmegaly, rebound, tenderness Rectal exam: PRESENT: deferred Extremities exam: PRESENT: full ROM. ABSENT: calf tenderness, clubbing, pedal edema Neurological exam: PRESENT: alert, awake, oriented to person, oriented to place , oriented to time, oriented to situation, CN II-XII grossly intact. ABSENT: motor sensory deficit Psychiatric exam: PRESENT: appropriate affect, normal mood. ABSENT: homicidal ideation, suicidal ideation Skin exam: PRESENT: dry, intact, warm. ABSENT: cyanosis, rash Results Laboratory Results: 09/07/16 03:39 09/07/16 03:39 09/07/16 09/07/16 03:39 03:39 WBC 9.2 RBC 4.62 Hgb 12.8 L Hct 38.9 MCV 84 MCH 27.8 MCHC 33.0 RDW 14.0 Plt Count 315 Seg Neutrophils % 67.5 Lymphocytes % 17.7 Monocytes % 9.7 Eosinophils % 4.3 Basophils % 0.8 Absolute Neutrophils 6.2 Absolute Lymphocytes 1.6 Absolute Monocytes 0.9 Absolute Eosinophils 0.4 Absolute Basophils 0.1 Sodium 142.9 Potassium 3.9 Chloride 106 Carbon Dioxide 23 Anion Gap 14 BUN 30 H Creatinine 1.91 H Est GFR ( Amer) 42 L Est GFR (Non-Af Amer) 35 L Glucose 64 L Calcium 8.0 L 09/05/16 05:33 Troponin I 0.042 Impressions: Chest X-Ray 09/04/16 22:43 IMPRESSION: NO ACUTE RADIOGRAPHIC FINDING IN THE CHEST. Qualifiers PATEINT BEING DISCHARGED WITH ANY OF THE FOLLOWING DIAGNOSIS?: No Plan Discharge Plan: Home with . He will follow up with his primary care provider in one week Time Spent: Less than 30 Minutes
[2016-09-07] MEDS ORDERED: DOCUSATE SODIUM 100 MG CAPSULE PO SCH (18:00)
[2016-09-07] MEDS ORDERED: GUAIFENESIN 600 MG TABLET.SA PO SCH (22:00)
[2016-09-08] MEDS ORDERED: AZITHROMYCIN 250 MG TABLET PO SCH (10:00)
== END 2016-09-07 13:37 | disposition home or self-care (01) | DRG 291 ==
LOC: ER 22:37 → EH 09-05 02:10 → UNDOADMIN 09-05 02:10 → 3N 09-05 03:55 → EH 09-05 03:55 → 3N 09-05 04:07 → EH 09-05 04:07
PROVIDERS: ADMIT Family Medicine; ATTEND Family Medicine
DX: I13.0 Hypertensive heart and chronic kidney disease with heart failure and stage 1 through stage 4 chronic kidney disease, or unspecified chronic kidney disease (principal); J18.9 Pneumonia, unspecified organism; I50.33 Acute on chronic diastolic (congestive) heart failure; N18.3 Chronic kidney disease, stage 3 (moderate); E11.22 Type 2 diabetes mellitus with diabetic chronic kidney disease; R09.02 Hypoxemia; E78.00 Pure hypercholesterolemia, unspecified; F32.9 Major depressive disorder, single episode, unspecified; R29.898 Other symptoms and signs involving the musculoskeletal system; T50.1X6A Underdosing of loop [high-ceiling] diuretics, initial encounter; Z91.19 Patient's noncompliance with other medical treatment and regimen; Z85.46 Personal history of malignant neoplasm of prostate; Z88.0 Allergy status to penicillin
CPT/HCPCS: 36415; 51702; 71010; 80048; 80053; 81001; 82550; 82553; 82803; 82962; 83735; 83880; 84484; 85025; 87040; 93005; 93010; 94660; 94799; 96365; 96375; 99285; G8980-GP; J0456; J1644; J1815; J1940; J1956; J3010; J3490; J7060

== ENCOUNTER → 2016-12-07 | Outpatient (CLI) | payer MEDICARE, OTHER | LOC: SP 11:02 | PROVIDERS: ATTEND Internal Medicine Cardiovascular Disease | DX: M79.89 Other specified soft tissue disorders (principal) | CPT/HCPCS: 93971 ==

== ENCOUNTER → 2017-03-12 | Outpatient (CLI) | payer MEDICARE, OTHER ==
[2017-03-12 15:03] LABS: ANION GAP 11 (5-19); BLOOD UREA NITROGEN 32 mg/dL (7-20); CALCIUM 8.1 mg/dL (8.4-10.2); CARBON DIOXIDE 25 mmol/L (22-30); CHLORIDE 106 mmol/L (98-107); CREATININE RESULT 2.52 mg/dL (0.52-1.25); GLUCOSE 206 mg/dL (75-110); POTASSIUM 4.3 mmol/L (3.6-5.0); SODIUM 141.6 mmol/L (137-145)
== END ==
LOC: OD 14:02
PROVIDERS: ATTEND Internal Medicine Cardiovascular Disease
DX: R68.89 Other general symptoms and signs (principal); R79.89 Other specified abnormal findings of blood chemistry
CPT/HCPCS: 36415; 80048

== ENCOUNTER 2017-03-17 15:03 | Emergency (ER) | payer MEDICARE, OTHER ==
[2017-03-17 15:15] VITALS: BP 147/52
--- NOTE | 2017-03-17 16:24 | ER Document Report ---
ED Medical Screen (RME) - General Chief Complaint: Swelling Stated Complaint: FLANK PAIN Time Seen by Provider: 03/17/17 16:10 Mode of Arrival: Ambulatory Information source: Patient, Relative TRAVEL OUTSIDE OF THE [place] IN LAST 30 DAYS: No - HPI Onset: Other Quality of pain: No pain Associated Symptoms: None Exacerbated by: Denies Recently seen / treated by doctor: Yes Notes: 03/17/17 16:18 Patient is a 71-year-old male who has had chronic swelling of his hands and feet for some time. Patient was seen by his primary care physician and had labs done on March 03. His creatinine was 2.5. He is currently on Lasix 40 mg daily. Patient states his primary care doctor told him to come to the emergency department for evaluation. Patient denies any chest pain or shortness of breath. Patient has not yet been referred to nephrology. - Related Data Allergies/Adverse Reactions: iodine Allergy (Verified 03/17/17 15:59) Penicillins Allergy (Verified 03/17/17 15:14) Past Medical History - General Information source: Patient, [facility] Records - Social History Frequency of alcohol use: None Drug Abuse: None - Past Medical History Cardiac Medical History: Reports: Hx Congestive Heart Failure - diastolic, Hx Hypercholesterolemia, Hx Hypertension Denies: Hx DVT, Hx Heart Attack, Hx Pulmonary Embolism Pulmonary Medical History: Denies: Hx Asthma, Hx COPD Neurological Medical History: Reports: Hx Seizures - X 3 > 20 yrs ago; no Rx Endocrine Medical History: Reports: Hx Diabetes Mellitus Type 1, Hx Diabetes Mellitus Type 2. Denies: Hx Hyperthyroidism, Hx Hypothyroidism Renal/ Medical History: Denies: Hx Peritoneal Dialysis Malignancy Medical History: Reports Hx Prostate Cancer, Reports Hx Skin Cancer GI Medical History: Denies: Hx Cirrhosis, Hx Gastroesophageal Reflux Disease, Hx Hepatitis Musculoskeltal Medical History: Reports Hx Arthritis Skin Medical History: Denies Hx Eczema, Denies Hx Psoriasis Psychiatric Medical History: Reports: Hx Depression, Hx Post Traumatic Stress Disorder Infectious Medical History: Denies: Hx Hepatitis Past Surgical History: Reports: Hx Genitourinary Surgery - Prostate removed, Hx Orthopedic Surgery - cervical X3, lumbar X1, Hx Urinary Tract Surgery - bladder , Other - Excision of skin cancers. Total prostatectomy. Bladder surgery 3. - Immunizations Hx Diphtheria, Pertussis, Tetanus Vaccination: Yes Review of Systems - Review of Systems Musculoskeletal: Ankle swelling, Other - Hand swelling -: Yes All other systems reviewed and negative Physical Exam - Vital signs Vitals: Temp Pulse Resp BP Pulse Ox 98.3 F 71 24 H 147/52 H 97 03/17/17 15:14 03/17/17 15:14 03/17/17 15:14 03/17/17 15:14 03/17/17 15:14 Interpretation: Normal - General General appearance: Appears well, Alert - HEENT Head: Normocephalic, Atraumatic Eyes: Normal Pupils: PERRL - Respiratory Respiratory status: No respiratory distress Chest status: Nontender Breath sounds: Normal Chest palpation: Normal - Cardiovascular Rhythm: Regular Heart sounds: Normal auscultation Murmur: No - Abdominal Inspection: Normal Distension: No distension Bowel sounds: Normal Tenderness: Nontender Organomegaly: No organomegaly - Extremities General upper extremity: Edema - 1+ edema to hands and feet, no erythema, General lower extremity: No: Macarena's sign - Neurological Neuro grossly intact: Yes Cognition: Normal Orientation: AAOx4 [place] Coma Scale Eye Opening: Spontaneous [place] Coma Scale Verbal: Oriented Arnold Coma Scale Motor: Obeys Commands [place] Coma Scale Total: 15 Speech: Normal Motor strength normal: LUE, RUE, LLE, RLE Sensory: Normal - Skin Skin Temperature: Warm Skin Moisture: Dry Skin Color: Normal Course - Re-evaluation Re-evalutation: 03/17/17 16:20 I reviewed copies of lab work patient brought with her dated March 03. There is no acute abnormality that requires any emergency department intervention. Will recommend patient increase his Lasix to 40 mg in the morning and 20 mg at night. Will add potassium supplement. Recommend nephrology follow-up. Will provide name and phone number of same. Patient and spouse are agree with plan. - Vital Signs Vital signs: Temp Pulse Resp BP Pulse Ox 98.3 F 71 24 H 147/52 H 97 03/17/17 15:14 03/17/17 15:14 03/17/17 15:14 03/17/17 15:14 03/17/17 15:14 Doctor's Discharge - Discharge Clinical Impression: Peripheral edema Condition: Good Disposition: HOME, SELF-CARE Instructions: Edema, Peripheral ([facility]) Additional Instructions: Increase your Lasix to 40 mg in the morning and 20 mg at night. Follow-up with nephrology and your primary care provider. Return to the emergency department if worse or for any other problems. Prescriptions: Potassium Chloride 10 meq PO DAILY #15 capsule.er Referrals: Camron JOHNSON MD [ACTIVE STAFF] - Follow up as needed ARSALAN VELEZ MD [ACTIVE STAFF] - Follow up as needed
== END 2017-03-17 16:28 | disposition home or self-care (01) ==
LOC: ER 15:03
DX: I11.0 Hypertensive heart disease with heart failure (principal); I50.30 Unspecified diastolic (congestive) heart failure; R60.9 Edema, unspecified; Z79.899 Other long term (current) drug therapy; E11.9 Type 2 diabetes mellitus without complications; Z85.46 Personal history of malignant neoplasm of prostate; Z85.828 Personal history of other malignant neoplasm of skin; Z88.0 Allergy status to penicillin
CPT/HCPCS: 99284

== ENCOUNTER → 2017-04-02 | Outpatient (CLI) | payer MEDICARE, OTHER ==
[2017-04-02 11:26] LABS: HEMATOCRIT 35.6 % (37.9-51.0); HEMOGLOBIN 11.7 g/dL (13.5-17.0); HGB HCT DIFFERENCE -0.5; MEAN CORPUSCULAR HEMOGLOBIN 27.5 pg (27.0-33.4); MEAN CORPUSCULAR HGB CONC 32.8 g/dL (32.0-36.0); MEAN CORPUSCULAR VOLUME 84 fl (80-97); RED BLOOD COUNT 4.25 10^6/uL (4.35-5.55); RED CELL DISTRIBUTION WIDTH 13.8 % (11.5-14.0)
[2017-04-02 11:29] LABS: APPEARANCE,URINE CLEAR; BILIRUBIN,URINE NEGATIVE (NEGATIVE); GLUCOSE, URINE 50 mg/dL (NEGATIVE); KETONES,URINE NEGATIVE (NEGATIVE); LEUKOCYTE ESTERASE,URINE NEGATIVE (NEGATIVE); NITRITE,URINE NEGATIVE (NEGATIVE); PROTEIN,URINE >=500 mg/dL (NEGATIVE); URINE SPECIFIC GRAVITY 1.012; UROBILINOGEN,URINE NEGATIVE mg/dL (<2.0)
[2017-04-02 11:46] LABS: ANION GAP 12 (5-19); BLOOD UREA NITROGEN 41 mg/dL (7-20); CALCIUM 8.5 mg/dL (8.4-10.2); CARBON DIOXIDE 27 mmol/L (22-30); CHLORIDE 105 mmol/L (98-107); CREATININE RESULT 2.87 mg/dL (0.52-1.25); GLUCOSE 117 mg/dL (75-110); MAGNESIUM 1.8 mg/dL (1.6-2.3); POTASSIUM 3.9 mmol/L (3.6-5.0); SODIUM 143.6 mmol/L (137-145)
[2017-04-02 11:47] LABS: URINE CREATININE 95.9 mg/dL (22-328)
[2017-04-02 12:28] LABS: URINE PROTEIN 851.9 mg/dL (<12)
== END ==
LOC: OD 10:43
PROVIDERS: ATTEND Physician Assistant Medical
DX: I12.9 Hypertensive chronic kidney disease with stage 1 through stage 4 chronic kidney disease, or unspecified chronic kidney disease (principal); N18.4 Chronic kidney disease, stage 4 (severe); E11.9 Type 2 diabetes mellitus without complications
CPT/HCPCS: 36415; 80048; 81001; 82570; 83735; 84156; 85027

== ENCOUNTER → 2017-05-03 | Outpatient (CLI) | payer MEDICARE, OTHER ==
[2017-05-03 12:33] LABS: HEMATOCRIT 38.3 % (37.9-51.0); HGB HCT DIFFERENCE 0.7; MEAN CORPUSCULAR HEMOGLOBIN 28.1 pg (27.0-33.4); MEAN CORPUSCULAR VOLUME 83 fl (80-97); RED BLOOD COUNT 4.63 10^6/uL (4.35-5.55); RED CELL DISTRIBUTION WIDTH 13.8 % (11.5-14.0)
[2017-05-03 12:47] LABS: APPEARANCE,URINE CLEAR; BILIRUBIN,URINE NEGATIVE (NEGATIVE); GLUCOSE, URINE >=500 mg/dL (NEGATIVE); KETONES,URINE NEGATIVE (NEGATIVE); LEUKOCYTE ESTERASE,URINE NEGATIVE (NEGATIVE); NITRITE,URINE NEGATIVE (NEGATIVE); PROTEIN,URINE >=500 mg/dL (NEGATIVE); URINE SPECIFIC GRAVITY 1.008; UROBILINOGEN,URINE NEGATIVE mg/dL (<2.0)
[2017-05-03 13:03] LABS: ANION GAP 11 (5-19)
[2017-05-03 13:10] LABS: URINE CREATININE 67.9 mg/dL (22-328)
[2017-05-03 13:22] LABS: BLOOD UREA NITROGEN 45 mg/dL (7-20); CALCIUM 9.1 mg/dL (8.4-10.2); CARBON DIOXIDE 29 mmol/L (22-30); CHLORIDE 102 mmol/L (98-107); CREATININE RESULT 2.85 mg/dL (0.52-1.25); GLUCOSE 224 mg/dL (75-110); PHOSPHORUS 4.5 mg/dL (2.5-4.5); POTASSIUM 4.5 mmol/L (3.6-5.0); SODIUM 141.6 mmol/L (137-145)
[2017-05-03 13:46] LABS: URINE PROTEIN 644.7 mg/dL (<12)
[2017-05-04 09:55] LABS: PTH INTACT 203 pg/mL (15-65)
[2017-05-04 16:39] LABS: A/G RATIO 0.7 (0.7-1.7); ALBUMIN 2 2.7 g/dL (2.9-4.4); ALPHA-1-GLOBULIN 2 0.3 g/dL (0.0-0.4); GAMMA GLOBULIN 1.5 g/dL (0.4-1.8); PROTEIN TOTAL SERUM 6.5 g/dL (6.0-8.5)
== END ==
LOC: OD 10:38
PROVIDERS: ATTEND Physician Assistant Medical
DX: E11.22 Type 2 diabetes mellitus with diabetic chronic kidney disease (principal); N18.4 Chronic kidney disease, stage 4 (severe); C61 Malignant neoplasm of prostate; D64.9 Anemia, unspecified; R60.9 Edema, unspecified
CPT/HCPCS: 36415; 80048; 81001; 82570; 82728; 83540; 83550; 83970; 84100; 84153; 84156; 84165; 85027

== ENCOUNTER → 2017-05-14 | Outpatient (CLI) | payer MEDICARE, OTHER ==
[2017-05-14 15:44] LABS: ABSOLUTE BASOPHILS # (AUTO) 0.1 10^3/uL (0.0-0.2); ABSOLUTE EOSINOPHILS # (AUTO) 0.3 10^3/uL (0.0-0.6); ABSOLUTE LYMPHOCYTES (AUTO) 1.4 10^3/uL (0.5-4.7); ABSOLUTE MONOCYTES (AUTO) 0.6 10^3/uL (0.1-1.4); ABSOLUTE NEUT (AUTO) 6.6 10^3/uL (1.7-8.2); APPEARANCE,URINE SLIGHTLY-CLOUDY; BASOPHILS % (AUTO) 0.8 % (0-2); BILIRUBIN,URINE NEGATIVE (NEGATIVE); EOSINOPHILS % (AUTO) 3.7 % (0-6); GLUCOSE, URINE >=500 mg/dL (NEGATIVE); HEMATOCRIT 37.8 % (37.9-51.0); HEMOGLOBIN 12.8 g/dL (13.5-17.0); HGB HCT DIFFERENCE 0.6; KETONES,URINE NEGATIVE (NEGATIVE); LEUKOCYTE ESTERASE,URINE NEGATIVE (NEGATIVE); LYMPHOCYTES % (AUTO) 15.8 % (13-45); MEAN CORPUSCULAR HEMOGLOBIN 28.6 pg (27.0-33.4); MEAN CORPUSCULAR HGB CONC 33.9 g/dL (32.0-36.0); MEAN CORPUSCULAR VOLUME 84 fl (80-97); MONOCYTES % (AUTO) 6.7 % (3-13); NITRITE,URINE NEGATIVE (NEGATIVE); PROTEIN,URINE >=500 mg/dL (NEGATIVE); RED BLOOD COUNT 4.49 10^6/uL (4.35-5.55); RED CELL DISTRIBUTION WIDTH 13.8 % (11.5-14.0); URINE SPECIFIC GRAVITY 1.017; UROBILINOGEN,URINE NEGATIVE mg/dL (<2.0); WHITE BLOOD COUNT 9.1 10^3/uL (4.0-10.5)
[2017-05-14 16:01] LABS: ANION GAP 11 (5-19); BLOOD UREA NITROGEN 40 mg/dL (7-20); CALCIUM 8.7 mg/dL (8.4-10.2); CARBON DIOXIDE 26 mmol/L (22-30); CHLORIDE 101 mmol/L (98-107); CREATININE RESULT 2.98 mg/dL (0.52-1.25); GLUCOSE 294 mg/dL (75-110); POTASSIUM 4.2 mmol/L (3.6-5.0); SODIUM 138.4 mmol/L (137-145)
[2017-05-14 16:43] LABS: URINE CREATININE 125.3 mg/dL (22-328); URINE PROTEIN 1318.1 mg/dL (<12)
== END ==
LOC: OD 14:29
PROVIDERS: ATTEND Physician Assistant Medical
DX: N18.4 Chronic kidney disease, stage 4 (severe) (principal); E11.9 Type 2 diabetes mellitus without complications; D64.9 Anemia, unspecified; I12.9 Hypertensive chronic kidney disease with stage 1 through stage 4 chronic kidney disease, or unspecified chronic kidney disease; R60.9 Edema, unspecified
CPT/HCPCS: 36415; 80048; 81001; 82570; 84156; 85025

== ENCOUNTER → 2017-08-27 | Outpatient (CLI) | payer MEDICARE, OTHER ==
--- NOTE | 2017-08-27 12:32 | RADIOLOGY REPORT (SQ) ---
EXAM DESCRIPTION: U/S RETROPERITON (RENAL/AORTA) COMPLETED DATE/TIME: 08/27/2017 11:43 am REASON FOR STUDY: HYDRONEPHROSIS N13.30 UNSPECIFIED HYDRONEPHROSIS COMPARISON: Ultrasound from [facility] dated 07/13/2017. TECHNIQUE: Dynamic and static grayscale images acquired of the kidneys and bladder and recorded on P ACS. Additional selected color Doppler and spectral images recorded. LIMITATIONS: None. FINDINGS: RIGHT KIDNEY: Normal size. Normal echogenicity. No solid or suspicious masses. No hydronep hrosis. No calcifications. LEFT KIDNEY: Normal size. Normal echogenicity. No solid or suspicious masses. Mild hydronephrosis, improved from the prior study. Echogenic area having the appearance of the proximal end of a uretera l stent. No calcifications. BLADDER: Not visualized. OTHER FINDINGS: No other significant finding. IMPRESSION: INTERVAL IMPROVEMENT OF BILATERAL HYDRONEPHROSIS. THERE IS MILD HYDRONEPHROSIS OF THE L EFT KIDNEY WHICH HAS IMPROVED. HYDRONEPHROSIS OF THE RIGHT KIDNEY HAS RESOLVED. TECHNICAL DOCUMENTATION: JOB ID: [id number]- All Rights Reserved
== END ==
LOC: RAD 10:35
PROVIDERS: ATTEND Urology
DX: N13.30 Unspecified hydronephrosis (principal)
CPT/HCPCS: 76770

== ENCOUNTER → 2017-10-15 | Outpatient (CLI) | payer MEDICARE, OTHER ==
[2017-10-15 19:01] LABS: ALBUMIN 3.6 g/dL (3.5-5.0); ANION GAP 14 (5-19); BLOOD UREA NITROGEN 52 mg/dL (7-20); CALCIUM 9.5 mg/dL (8.4-10.2); CARBON DIOXIDE 24 mmol/L (22-30); CHLORIDE 105 mmol/L (98-107); GLUCOSE 189 mg/dL (75-110); MAGNESIUM 1.9 mg/dL (1.6-2.3); PHOSPHORUS 5.2 mg/dL (2.5-4.5); POTASSIUM 5.4 mmol/L (3.6-5.0); SODIUM 142.5 mmol/L (137-145)
== END ==
LOC: OD 14:16
PROVIDERS: ATTEND Internal Medicine Nephrology
DX: N18.4 Chronic kidney disease, stage 4 (severe) (principal)
CPT/HCPCS: 36415; 80069; 83735

== ENCOUNTER → 2017-10-21 | Outpatient (CLI) | payer MEDICARE, OTHER ==
--- NOTE | 2017-10-21 16:20 | RADIOLOGY REPORT (SQ) ---
EXAM DESCRIPTION: U/S RETROPERITON (RENAL/AORTA) COMPLETED DATE/TIME: 10/21/2017 4:10 pm REASON FOR STUDY: RECURRENT UTI N39.0 URINARY TRACT INFECTION, SITE NOT SPECIFIED COMPARISON: 08/27/2017 TECHNIQUE: Dynamic and static grayscale images acquired of the kidneys and bladder and recorded on P ACS. Additional selected color Doppler and spectral images recorded. LIMITATIONS: None. FINDINGS: RIGHT KIDNEY: 11.9 cm in length. Normal echogenicity. No solid or suspicious masses. Dilated renal pelvis again identified consistent with hydronephrosis. No calcifications. LEFT KIDNEY: 11.2 cm in length. Normal echogenicity. No solid or suspicious masses. Dilated re nal pelvis is again identified consistent with hydronephrosis. No calcifications. BLADDER: No masses. OTHER FINDINGS: Ureteric stent is identified on the left. IMPRESSION: Findings consistent with bilateral hydronephrosis as noted above. Ureteric stent is sandra ntified on the left. TECHNICAL DOCUMENTATION: JOB ID: [id number] [employer]- All Rights Reserved
== END ==
LOC: RAD 15:10
PROVIDERS: ATTEND Urology
DX: N39.0 Urinary tract infection, site not specified (principal); N13.30 Unspecified hydronephrosis
CPT/HCPCS: 76770

== ENCOUNTER → 2017-11-30 | Outpatient (CLI) | payer MEDICARE, OTHER ==
[2017-11-30 15:36] LABS: ALANINE AMINOTRANSFERASE 30 U/L (21-72); ALBUMIN 3.4 g/dL (3.5-5.0); ALKALINE PHOSPHATASE 114 U/L (38-126); ASPARTATE AMINO TRANSFERASE 11 U/L (17-59); BILIRUBIN,DIRECT 0.2 mg/dL (0.0-0.4); BILIRUBIN,TOTAL 0.3 mg/dL (0.2-1.3); TOTAL PROTEIN 6.3 g/dL (6.3-8.2)
[2017-11-30 15:38] LABS: ABSOLUTE BASOPHILS # (AUTO) 0.1 10^3/uL (0.0-0.2); ABSOLUTE EOSINOPHILS # (AUTO) 0.3 10^3/uL (0.0-0.6); ABSOLUTE LYMPHOCYTES (AUTO) 1.7 10^3/uL (0.5-4.7); ABSOLUTE MONOCYTES (AUTO) 0.7 10^3/uL (0.1-1.4); ABSOLUTE NEUT (AUTO) 6.2 10^3/uL (1.7-8.2); BASOPHILS % (AUTO) 0.7 % (0-2); EOSINOPHILS % (AUTO) 2.9 % (0-6); HEMATOCRIT 37.3 % (37.9-51.0); HEMOGLOBIN 12.2 g/dL (13.5-17.0); LYMPHOCYTES % (AUTO) 19.2 % (13-45); MEAN CORPUSCULAR HEMOGLOBIN 28.6 pg (27.0-33.4); MEAN CORPUSCULAR HGB CONC 32.7 g/dL (32.0-36.0); MEAN CORPUSCULAR VOLUME 88 fl (80-97); MONOCYTES % (AUTO) 8.1 % (3-13); PLATELET COUNT 386 10^3/uL (150-450); RED BLOOD COUNT 4.26 10^6/uL (4.35-5.55); RED CELL DISTRIBUTION WIDTH 14.7 % (11.5-14.0); SEGMENTED NEUTROPHILS % (AUTO) 69.1 % (42-78); TOTAL CELLS COUNTED % (AUTO) 100 %
== END ==
LOC: OD 14:19
PROVIDERS: ATTEND Internal Medicine Nephrology
DX: N18.5 Chronic kidney disease, stage 5 (principal)
CPT/HCPCS: 36415; 80076; 85025

== ENCOUNTER 2018-02-08 10:11 | Emergency (ER) | payer MEDICARE, OTHER ==
--- NOTE | 2018-02-08 10:50 | ER Document Report ---
ED General - General Chief Complaint: Tremor Stated Complaint: DIFFICULTY BREATHING Time Seen by Provider: 02/08/18 10:28 Mode of Arrival: Medic Information source: Patient, Relative Notes: Patient is a 72-year-old male with history of chronic kidney disease, not on dialysis yet, CHF who presents to the ER today for tremors that began approximately 2 weeks ago. 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 states that they can occur while he is at rest as well as with moving and can get quite dramatic with his upper arms "flailing about." She states that they happen with his lower legs to. He states that he gets short of breath during the tremors only. He has not had any cough, fever, chills. He also has a history of recurrent UTIs, just finished doxycycline. He does admit that it still arias at the end of his urination. Patient has no neurological past medical history that he knows of, no family history of Parkinson's, ALS or neurological issues that he knows of. Patient comes to the ER today mainly because over the past 4 days he has been falling frequently and has been unable to ambulate since yesterday per . Patient states that he feels weak and his legs "just give out on me." He denies any pain to the hips or legs. He denies hitting his head during any falls or loss of consciousness. does state that he rolls his fingers in his sleep which she has never seen him do before. He denies starting any new medications recently except for the doxycycline. TRAVEL OUTSIDE OF THE [place] IN LAST 30 DAYS: No - Related Data Allergies/Adverse Reactions: iodine Allergy (Verified 03/17/17 15:59) Penicillins Allergy (Verified 03/17/17 15:14) Past Medical History - General Information source: Patient - Social History Smoking Status: Never Smoker Frequency of alcohol use: None Drug Abuse: None Family History: Reviewed & Not Pertinent Patient has suicidal ideation: No Patient has homicidal ideation: No - Past Medical History Cardiac Medical History: Reports: Hx Congestive Heart Failure - diastolic, Hx Hypercholesterolemia, Hx Hypertension Denies: Hx DVT, Hx Heart Attack, Hx Pulmonary Embolism Pulmonary Medical History: Denies: Hx Asthma, Hx COPD Neurological Medical History: Reports: Hx Seizures - X 3 > 20 yrs ago; no Rx Endocrine Medical History: Reports: Hx Diabetes Mellitus Type 1, Hx Diabetes Mellitus Type 2. Denies: Hx Hyperthyroidism, Hx Hypothyroidism Renal/ Medical History: Reports: Hx End Stage Renal Disease. Denies: Hx Peritoneal Dialysis Malignancy Medical History: Reports Hx Prostate Cancer, Reports Hx Skin Cancer GI Medical History: Denies: Hx Cirrhosis, Hx Gastroesophageal Reflux Disease, Hx Hepatitis Musculoskeltal Medical History: Reports Hx Arthritis Skin Medical History: Denies Hx Eczema, Denies Hx Psoriasis Psychiatric Medical History: Reports: Hx Depression, Hx Post Traumatic Stress Disorder Infectious Medical History: Denies: Hx Hepatitis Past Surgical History: Reports: Hx Genitourinary Surgery - Prostate removed, Hx Orthopedic Surgery - cervical X3, lumbar X1, Hx Urinary Tract Surgery - bladder , Other - Excision of skin cancers. Total prostatectomy. Bladder surgery 3. - Immunizations Hx Diphtheria, Pertussis, Tetanus Vaccination: Yes Hx Pneumococcal Vaccination: 06/06/11 Review of Systems - Review of Systems Constitutional: No symptoms reported EENT: No symptoms reported Cardiovascular: No symptoms reported Respiratory: No symptoms reported Gastrointestinal: No symptoms reported Genitourinary: No symptoms reported Male Genitourinary: No symptoms reported Musculoskeletal: See HPI Skin: No symptoms reported Hematologic/Lymphatic: No symptoms reported Neurological/Psychological: See HPI Physical Exam - Vital signs Vitals: Temp Resp BP Pulse Ox 97.7 F 19 101/87 H 97 02/08/18 10:28 02/08/18 10:28 02/08/18 10:28 02/08/18 10:28 - Notes Notes: PHYSICAL EXAMINATION: GENERAL: mild tremors upper and lower extremities, but in no acute distress. HEAD: Atraumatic, normocephalic. EYES: Pupils equal round and reactive to light, extraocular movements intact, sclera anicteric, conjunctiva are normal. ENT: ear canals without erythema or foreign body, TMs pearly ochoa with good bony landmarks, nares patent, oropharynx clear without exudates. Moist mucous membranes. Airway patent NECK: Normal range of motion, supple without lymphadenopathy LUNGS: CTAB and equal. No wheezes rales or rhonchi. HEART: Regular rate and rhythm without murmurs ABDOMEN: Soft, no tenderness. No guarding, no rebound BACK: no vertebral tenderness, normal ROM GI/: no CVA tenderness EXTREMITIES: Normal range of motion, no pitting edema. No cyanosis. NEUROLOGICAL: Hyperreflexive bilateral upper and lower extremities, resting tremor to upper and lower extremities, otherwise equal strength bilateral upper and lower extremities with some weakness upon lifting lower extremities against me, cranial nerves grossly intact. PSYCH: Normal mood, normal affect. SKIN: Warm, Dry, normal turgor, no rashes or lesions noted Course - Re-evaluation Re-evalutation: 02/08/18 18:21 Urinalysis reveals urinary tract infection with greater than 182 white blood cells and large leukocytes, blood, patient started on IV Rocephin. Lab work is at patient's baseline, creatinine is actually a little better than when he was here last, electrolytes are all within normal limits, CT of the head negative for any acute pathology, EKG negative for any acute pathology patient does not have a neurologist and has not been evaluated for these symptoms, he will not get up and walk for us as he states that his legs feel weak and "keep giving out on me." Ricki Adair, Dr. Sosa, accepts transfer at this time for neurologic evaluation and patient. Patient has been given multiple doses of Valium which seemed to be helping his symptoms but only briefly. I discussed this case with Dr. Heath, my attending who does not recommend any other medication at this time. Patient is otherwise stable. - Vital Signs Vital signs: Temp Pulse Resp BP Pulse Ox 97.5 F 24 H 153/75 H 98 02/08/18 17:19 02/08/18 17:28 02/08/18 17:28 02/08/18 17:28 - Laboratory Result Diagrams: 02/08/18 10:45 02/08/18 10:45 Laboratory results interpreted by me: 02/08/18 02/08/18 02/08/18 10:45 10:45 10:45 RBC 3.76 L Hgb 10.9 L Hct 32.0 L Lymphocytes % 12.4 L BUN 84 H Creatinine 3.93 H Est GFR ( Amer) 18 L Est GFR (Non-Af Amer) 15 L Glucose 215 H Creatine Kinase 28 L Albumin 2.9 L Urine Protein Urine Glucose (UA) Urine Blood Ur Leukocyte Esterase 02/08/18 11:05 RBC Hgb Hct Lymphocytes % BUN Creatinine Est GFR ( Amer) Est GFR (Non-Af Amer) Glucose Creatine Kinase Albumin Urine Protein >=500 H Urine Glucose (UA) 50 H Urine Blood SMALL H Ur Leukocyte Esterase LARGE H Discharge - Discharge Clinical Impression: Tremor Falls Qualifiers: Encounter type: initial encounter Qualified Code(s): W19.XXXA - Unspecified fall, initial encounter UTI (urinary tract infection) Qualifiers: Urinary tract infection type: site unspecified Hematuria presence: with hematuria Qualified Code(s): N39.0 - Urinary tract infection, site not specified Condition: Stable Disposition: [facility] Referrals: KISHORE MARIA MD [Primary Care Provider] - Follow up as needed
[2018-02-08 11:17] LABS: ABSOLUTE BASOPHILS # (AUTO) 0.1 10^3/uL (0.0-0.2); ABSOLUTE EOSINOPHILS # (AUTO) 0.3 10^3/uL (0.0-0.6); ABSOLUTE LYMPHOCYTES (AUTO) 1.1 10^3/uL (0.5-4.7); ABSOLUTE MONOCYTES (AUTO) 0.6 10^3/uL (0.1-1.4); ABSOLUTE NEUT (AUTO) 6.9 10^3/uL (1.7-8.2); BASOPHILS % (AUTO) 0.8 % (0-2); EOSINOPHILS % (AUTO) 3.6 % (0-6); HEMOGLOBIN 10.9 g/dL (13.5-17.0); LYMPHOCYTES % (AUTO) 12.4 % (13-45); MEAN CORPUSCULAR HGB CONC 34.1 g/dL (32.0-36.0); MEAN CORPUSCULAR VOLUME 85 fl (80-97); PLATELET COUNT 361 10^3/uL (150-450); RED BLOOD COUNT 3.76 10^6/uL (4.35-5.55); RED CELL DISTRIBUTION WIDTH 13.9 % (11.5-14.0); SEGMENTED NEUTROPHILS % (AUTO) 76.2 % (42-78); TOTAL CELLS COUNTED % (AUTO) 100 %; WHITE BLOOD COUNT 9.1 10^3/uL (4.0-10.5)
[2018-02-08 11:32] LABS: ALANINE AMINOTRANSFERASE 33 U/L (21-72); ALBUMIN 2.9 g/dL (3.5-5.0); ALKALINE PHOSPHATASE 108 U/L (38-126); ANION GAP 13 (5-19); ASPARTATE AMINO TRANSFERASE 18 U/L (17-59); BILIRUBIN,DIRECT 0.3 mg/dL (0.0-0.4); BILIRUBIN,TOTAL 0.3 mg/dL (0.2-1.3); BLOOD UREA NITROGEN 84 mg/dL (7-20); CALCIUM 8.8 mg/dL (8.4-10.2); CARBON DIOXIDE 24 mmol/L (22-30); CHLORIDE 105 mmol/L (98-107); GLUCOSE 215 mg/dL (75-110); POTASSIUM 4.1 mmol/L (3.6-5.0); SODIUM 141.6 mmol/L (137-145); TOTAL PROTEIN 6.5 g/dL (6.3-8.2)
[2018-02-08 11:41] LABS: APPEARANCE,URINE TURBID; BILIRUBIN,URINE NEGATIVE (NEGATIVE); GLUCOSE, URINE 50 mg/dL (NEGATIVE); KETONES,URINE NEGATIVE (NEGATIVE); LEUKOCYTE ESTERASE,URINE LARGE (NEGATIVE); NITRITE,URINE NEGATIVE (NEGATIVE); PROTEIN,URINE >=500 mg/dL (NEGATIVE); URINE SPECIFIC GRAVITY 1.013; UROBILINOGEN,URINE NEGATIVE mg/dL (<2.0)
[2018-02-08 11:43] LABS: COLOR,URINE YELLOW
--- NOTE | 2018-02-08 12:07 | RADIOLOGY REPORT (SQ) ---
EXAM DESCRIPTION: CHEST SINGLE VIEW COMPLETED DATE/TIME: 02/08/2018 11:53 am REASON FOR STUDY: sob, tremor COMPARISON: 09/04/2016 and 12/05/2014. EXAM PARAMETERS: NUMBER OF VIEWS: One view. TECHNIQUE: Single frontal radiographic view of the chest acquired. RADIATION DOSE: NA LIMITATIONS: None. FINDINGS: LUNGS AND PLEURA: Stable circumscribed nodule in the right lung. No focal infiltrates. N o pleural effusion or pneumothorax. MEDIASTINUM AND HILAR STRUCTURES: No masses. Contour normal. HEART AND VASCULAR STRUCTURES: Heart normal in size. Normal vasculature. BONES: No acute findings. HARDWARE: None in the chest. OTHER: No other significant finding. IMPRESSION: STABLE RIGHT LUNG NODULE, PREVIOUSLY EVALUATED, FELT TO BE A HAMARTOMA. NO ACUTE RADIOG RAPHIC FINDING IN THE CHEST. TECHNICAL DOCUMENTATION: JOB ID: [id number] [employer]- All Rights Reserved Reading location - IP/workstation name: [email or web address]
[2018-02-08] MEDS ORDERED: CEFTRIAXONE INJ 1000 MG VIAL IV ONE (12:09)
[2018-02-08] MEDS ORDERED: DIAZEPAM 2 MG TABLET PO ONE ×3 (12:49→20:11)
--- NOTE | 2018-02-08 14:15 | RADIOLOGY REPORT (SQ) ---
EXAM DESCRIPTION: CT HEAD WITHOUT COMPLETED DATE/TIME: 02/08/2018 2:05 pm REASON FOR STUDY: frequent falls, tremors COMPARISON: 04/13/2016. TECHNIQUE: Axial images acquired through the brain without intravenous contrast. Images reviewed wi th bone, brain and subdural windows. Additional sagittal and coronal reconstructions were generated. Images stored on PACS. All CT scanners at this facility use dose modulation, iterative reconstruction, and/or weight based d osing when appropriate to reduce radiation dose to as low as reasonably achievable (ALARA). [facility]: Dose Right [facility]: CareDose [facility]: Dose Right [facility]: Teradose 4D [facility]: Texert RADIATION DOSE: CT Rad equipment meets quality standard of care and radiation dose reduction techniq ues were employed. CTDIvol: 53.2 mGy. DLP: 1070 mGy-cm. mGy. LIMITATIONS: None. FINDINGS: VENTRICLES: Prominent. CEREBRUM: No masses. No hemorrhage. No midline shift. Areas of low density in the white matter mos t likely due to chronic micro-vascular ischemic change. No evidence for acute infarction. CEREBELLUM: No masses. No hemorrhage. No alteration of density. No evidence for acute infarction. EXTRAAXIAL SPACES: Mild age-related involutional change. No fluid collections. No masses. ORBITS AND GLOBE: No intra- or extraconal masses. Normal contour of globe without masses. CALVARIUM: No fracture. PARANASAL SINUSES: No fluid or mucosal thickening. SOFT TISSUES: No mass or hematoma. OTHER: No other significant finding. IMPRESSION: MILD CHRONIC CHANGES OF ATROPHY AND MICROVASCULAR ISCHEMIA. NO ACUTE PROCESS. EVIDENCE OF ACUTE STROKE: NO. TECHNICAL DOCUMENTATION: JOB ID: [id number] Quality ID # [id number]: Final reports with documentation of one or more dose reduction techniques (e.g., Au tomated exposure control, adjustment of the mA and/or kV according to patient size, use of iterative reconstruction technique) 2010 [employer]- All Rights Reserved Reading location - IP/workstation name: [email or web address]
[2018-02-08 20:08] VITALS: BP 161/66
--- NOTE | 2018-02-08 22:12 | EKG REPORT ---
SEVERITY:- ABNORMAL ECG - SINUS OR ECTOPIC ATRIAL RHYTHM SINUS PAUSE/ARREST W/ SUPRAVENTRICULAR ESCAPE FIRST DEGREE AV BLOCK PROBABLE RIGHT VENTRICULAR HYPERTROPHY : Confirmed by: Adore Hoffman MD 08-Feb-2018 22:10:39
== END 2018-02-08 20:59 | disposition short-term general hospital (02) ==
LOC: ER 10:11
DX: R25.1 Tremor, unspecified (principal); N39.0 Urinary tract infection, site not specified; R31.9 Hematuria, unspecified; R29.6 Repeated falls; R06.02 Shortness of breath; R53.1 Weakness; I10 Essential (primary) hypertension; E11.9 Type 2 diabetes mellitus without complications; Z88.0 Allergy status to penicillin; Z85.828 Personal history of other malignant neoplasm of skin; Z85.46 Personal history of malignant neoplasm of prostate
CPT/HCPCS: 93005; 99285; 96365; 36415; 87040; 87086; 82550; 83605; 85025; 80053; 81001; 71045; 70450; 93010; A9270; J0696; J3490

== ENCOUNTER 2018-02-26 19:16 | Observation (INO) | payer MEDICARE, OTHER ==
[2018-02-26 19:56] LABS: ABSOLUTE EOSINOPHILS # (AUTO) 0.2 10^3/uL (0.0-0.6); ABSOLUTE LYMPHOCYTES (AUTO) 1.1 10^3/uL (0.5-4.7); ABSOLUTE MONOCYTES (AUTO) 0.6 10^3/uL (0.1-1.4); ABSOLUTE NEUT (AUTO) 5.1 10^3/uL (1.7-8.2); BASOPHILS % (AUTO) 0.4 % (0-2); EOSINOPHILS % (AUTO) 2.9 % (0-6); HEMATOCRIT 34.1 % (37.9-51.0); HEMOGLOBIN 11.6 g/dL (13.5-17.0); LYMPHOCYTES % (AUTO) 15.7 % (13-45); MEAN CORPUSCULAR HEMOGLOBIN 29.5 pg (27.0-33.4); MEAN CORPUSCULAR VOLUME 87 fl (80-97); MONOCYTES % (AUTO) 8.1 % (3-13); PLATELET COUNT 254 10^3/uL (150-450); RED BLOOD COUNT 3.92 10^6/uL (4.35-5.55); RED CELL DISTRIBUTION WIDTH 14.9 % (11.5-14.0); SEGMENTED NEUTROPHILS % (AUTO) 72.9 % (42-78); TOTAL CELLS COUNTED % (AUTO) 100 %
[2018-02-26] MEDS ORDERED: MORPHINE SULFATE 10 MG/ML INJ IV ONE (19:58)
--- NOTE | 2018-02-26 20:01 | ER Document Report ---
ED Cardiac - General Chief Complaint: Chest Pain Stated Complaint: CHEST PAIN Time Seen by Provider: 02/26/18 19:50 Notes: Patient is a 72-year-old male comes to the emergency department by EMS for chief complaint of chest pain. He states that he ate dinner and shortly afterwards he started having chest pain, he states it is a painful pulling sensation in the center of his chest, nonradiating. He reports some vague intermittent nausea for the past 2 days but did not start having pain until today. He denies shortness of breath, dizziness, fever, cough, or abdominal pain. Patient given aspirin 324 mg and 3 sublingual nitroglycerin tablets, afterwards his pain resolved. On my evaluation patient states his pain is starting to come back a little bit. Past medical history of coronary stents in November of this year in [place], insulin-dependent diabetes, hypertension, GERD , and he is on Brilinta. TRAVEL OUTSIDE OF THE [place] IN LAST 30 DAYS: No - Related Data Allergies/Adverse Reactions: Iodinated Contrast- Oral and IV Dye Allergy (Verified 02/26/18 19:34) iodine Allergy (Verified 02/26/18 19:34) Penicillins Allergy (Verified 02/26/18 19:34) Past Medical History - General Information source: Patient, Relative - Social History Smoking Status: Never Smoker Drug Abuse: None Lives with: Family Family History: Reviewed & Not Pertinent - Past Medical History Cardiac Medical History: Reports: Hx Congestive Heart Failure - diastolic, Hx Coronary Artery Disease, Hx Hypercholesterolemia, Hx Hypertension Denies: Hx DVT, Hx Heart Attack, Hx Pulmonary Embolism Pulmonary Medical History: Denies: Hx Asthma, Hx COPD Neurological Medical History: Reports: Hx Seizures - X 3 > 20 yrs ago; no Rx Endocrine Medical History: Reports: Hx Diabetes Mellitus Type 2. Denies: Hx Hyperthyroidism, Hx Hypothyroidism Renal/ Medical History: Reports: Hx End Stage Renal Disease. Denies: Hx Peritoneal Dialysis Malignancy Medical History: Reports Hx Prostate Cancer, Reports Hx Skin Cancer GI Medical History: Denies: Hx Cirrhosis, Hx Gastroesophageal Reflux Disease, Hx Hepatitis Musculoskeltal Medical History: Reports Hx Arthritis Skin Medical History: Denies Hx Eczema, Denies Hx Psoriasis Psychiatric Medical History: Reports: Hx Depression, Hx Post Traumatic Stress Disorder Infectious Medical History: Denies: Hx Hepatitis Past Surgical History: Reports: Hx Genitourinary Surgery - Prostate removed, Hx Orthopedic Surgery - cervical X3, lumbar X1, Hx Urinary Tract Surgery - bladder , Other - Excision of skin cancers. Total prostatectomy. Bladder surgery 3. - Immunizations Hx Diphtheria, Pertussis, Tetanus Vaccination: Yes Hx Pneumococcal Vaccination: 06/06/11 Review of Systems - Review of Systems Constitutional: No symptoms reported EENT: No symptoms reported Cardiovascular: See HPI Respiratory: No symptoms reported Gastrointestinal: See HPI Genitourinary: No symptoms reported Male Genitourinary: No symptoms reported Musculoskeletal: No symptoms reported Skin: No symptoms reported Hematologic/Lymphatic: No symptoms reported Neurological/Psychological: No symptoms reported Physical Exam - Vital signs Vitals: Pulse Ox 97 02/26/18 19:16 - Notes Notes: GENERAL: Alert, interacts well. No acute distress. HEAD: Normocephalic, atraumatic. EYES: Pupils equal, round, and reactive to light. Extraocular movements intact. ENT: Oral mucosa moist, tongue midline. NECK: Full range of motion. Supple. Trachea midline. LUNGS: Clear to auscultation bilaterally, no wheezes, rales, or rhonchi. No respiratory distress. HEART: Regular rate and rhythm. No murmur ABDOMEN: Soft, non-tender. Non-distended. Bowel sounds present in all 4 quadrants. EXTREMITIES: Moves all 4 extremities spontaneously. No edema, normal radial and dorsalis pedis pulses bilaterally. No cyanosis. There is a shunt in the left antecubital area, good auscultated thrill BACK: no cervical, thoracic, lumbar midline tenderness. No saddle anesthesia, normal distal neurovascular exam. NEUROLOGICAL: Alert and oriented x3. Normal speech. [cranial nerves II through XII grossly intact]. PSYCH: Normal affect, normal mood. SKIN: Warm, dry, normal turgor. No rashes or lesions noted. Course - Re-evaluation Re-evalutation: EKG showing sinus rhythm at a rate of 87, no T-wave inversions or ST segment changes in leads. No significant change from prior. QTC 462, [place] interval 196. Chest x-ray unremarkable. CBC unremarkable, chemistry shows chronic kidney disease without change from prior, glucose slightly elevated, bicarb borderline , anion gap is normal, lipase is not elevated, initial troponin 0.017. 02/26/18 20:42 Patient given small amount of morphine, pain almost resolved. Pain-free currently on evaluation. He states he has bad reflux problems, is requesting for something for this especially after taking aspirin, given Pepcid and Maalox. 02/26/18 22:40 Patient reporting that he started to have pain again but then was given Pepcid and Maalox, his pain completely resolved, he belched a couple of times, and he has felt great ever since. He is asking to go home if his repeat troponin is not concerning. Patient's heart score is 4 (age, risk factors/medical history) . Repeat troponin shows significant elevation from prior although is not in AMI range. Discussed with Dr. Perez. Discussed with patient. Patient's heart score is now 5. Patient agrees to admission at this point. Patient remains chest pain-free. Discussed with Dr. Elizondo, patient will be admitted to telemetry observation. - Vital Signs Vital signs: Temp Pulse Resp BP Pulse Ox 97.9 F 62 16 145/57 H 99 02/27/18 03:13 02/27/18 03:13 02/27/18 03:13 02/27/18 03:13 02/27/18 03:13 - Laboratory Result Diagrams: 02/26/18 18:43 02/26/18 18:43 Laboratory results interpreted by me: 02/26/18 02/26/18 18:43 18:43 RBC 3.92 L Hgb 11.6 L Hct 34.1 L RDW 14.9 H Sodium 146.2 H Chloride 111 H Carbon Dioxide 21 L BUN 47 H Creatinine 3.93 H Est GFR ( Amer) 18 L Est GFR (Non-Af Amer) 15 L Glucose 194 H Direct Bilirubin 0.5 H AST 14 L Creatine Kinase 42 L Albumin 3.4 L Discharge - Discharge Clinical Impression: Chest pain Qualifiers: Chest pain type: unspecified Qualified Code(s): R07.9 - Chest pain, unspecified Condition: Stable Disposition: ADMITTED OBSERVATION Admitting Provider: Hospitalist Unit Admitted: Telemetry
[2018-02-26 20:22] LABS: ALANINE AMINOTRANSFERASE 24 U/L (21-72); ALBUMIN 3.4 g/dL (3.5-5.0); ALKALINE PHOSPHATASE 109 U/L (38-126); ANION GAP 14 (5-19); ASPARTATE AMINO TRANSFERASE 14 U/L (17-59); BILIRUBIN,DIRECT 0.5 mg/dL (0.0-0.4); BILIRUBIN,TOTAL 0.5 mg/dL (0.2-1.3); BLOOD UREA NITROGEN 47 mg/dL (7-20); CALCIUM 8.7 mg/dL (8.4-10.2); CARBON DIOXIDE 21 mmol/L (22-30); CHLORIDE 111 mmol/L (98-107); CREATINE KINASE 42 U/L (55-170); GLUCOSE 194 mg/dL (75-110); POTASSIUM 4.8 mmol/L (3.6-5.0); SODIUM 146.2 mmol/L (137-145); TOTAL PROTEIN 6.9 g/dL (6.3-8.2)
[2018-02-26 20:32] LABS: CREATINE KINASE MB 1.58 ng/mL (<4.55); TROPONIN I 0.017 ng/mL
[2018-02-26] MEDS ORDERED: FAMOTIDINE 20 MG TABLET PO ONE (20:42)
[2018-02-26] MEDS ORDERED: MAG HYDROX/AL HYDROX/SIMETH SUSP 30 ML UDCUP PO ONE (20:42)
[2018-02-26] MEDS ORDERED: TICAGRELOR 90 MG TABLET PO ONE (20:45)
[2018-02-26] MEDS ORDERED: CARVEDILOL 12.5 MG TABLET PO ONE (20:45)
--- NOTE | 2018-02-26 21:01 | RADIOLOGY REPORT (SQ) ---
EXAM DESCRIPTION: CHEST SINGLE VIEW COMPLETED DATE/TIME: 02/26/2018 7:58 pm REASON FOR STUDY: chest pain COMPARISON: 02/08/2018. EXAM PARAMETERS: NUMBER OF VIEWS: One view. TECHNIQUE: Single frontal radiographic view of the chest acquired. RADIATION DOSE: NA LIMITATIONS: None. FINDINGS: LUNGS AND PLEURA: Stable right lung nodule. No infiltrates or pneumothorax. No pleural ef fusion. MEDIASTINUM AND HILAR STRUCTURES: No masses. Contour normal. HEART AND VASCULAR STRUCTURES: Heart upper limits of normal in size. Normal vasculature. BONES: No acute findings. HARDWARE: None in the chest. OTHER: No other significant finding. IMPRESSION: NO ACUTE RADIOGRAPHIC FINDING IN THE CHEST. TECHNICAL DOCUMENTATION: JOB ID: [id number] [employer]- All Rights Reserved Reading location - IP/workstation name: [email or web address]
[2018-02-26] MEDS ORDERED: NITROGLYCERIN 0.4 MG/TAB 25 TAB/BOTTLE SL PRN (23:56)
[2018-02-26] MEDS ORDERED: DEXTROSE 50%-WATER 25 GM/50 ML DISP.SYRIN IV PRN ×2 (23:56)
[2018-02-26] MEDS ORDERED: INSULIN LISPRO 100 UNIT/ML 3 ML VIAL SUBCUT PRN (23:56)
[2018-02-26] MEDS ORDERED: DEXTROSE 40% GEL 15 GM TUBE PO PRN ×2 (23:56)
[2018-02-26] MEDS ORDERED: GLUCAGON,HUMAN RECOMB 1 MG INJ IM PRN (23:56)
[2018-02-26] MEDS ORDERED: LACTULOSE SYRUP 20 GM/30 ML UDCUP PO ONE (23:58)
[2018-02-26] MEDS ORDERED: NORMAL SALINE 1000 ML 1,000 ML IV PRN (23:58)
[2018-02-27] MEDS ORDERED: ATORVASTATIN CALCIUM 40 MG TABLET PO ONE (00:15)
[2018-02-27] MEDS ORDERED: TICAGRELOR 90 MG TABLET ONE (00:22)
[2018-02-27] MEDS ORDERED: CARVEDILOL 12.5 MG TABLET PO ONE (01:00)
[2018-02-27 05:11] LABS: ANION GAP 10 (5-19); BLOOD UREA NITROGEN 46 mg/dL (7-20); CALCIUM 8.5 mg/dL (8.4-10.2); CARBON DIOXIDE 22 mmol/L (22-30); CHLORIDE 116 mmol/L (98-107); CHOLESTEROL 116.98 mg/dL (0-200); CREATINE KINASE 44 U/L (55-170); GLUCOSE 74 mg/dL (75-110); POTASSIUM 4.6 mmol/L (3.6-5.0); SODIUM 147.9 mmol/L (137-145); TRIGLYCERIDES 132 mg/dL (<150)
[2018-02-27 05:21] LABS: DIRECT LDL 66 mg/dL (<100)
[2018-02-27 05:23] LABS: CREATINE KINASE MB 2.62 ng/mL (<4.55)
[2018-02-27 05:29] LABS: TROPONIN I 0.39 ng/mL
[2018-02-27] MEDS ORDERED: HEPARIN SOD (PORCINE) 5,000 UNIT/ML 1 ML SYRINGE SUBCUT SCH (06:00)
[2018-02-27 06:26] LABS: ABSOLUTE EOSINOPHILS # (AUTO) 0.1 10^3/uL (0.0-0.6); ABSOLUTE LYMPHOCYTES (AUTO) 1.1 10^3/uL (0.5-4.7); ABSOLUTE MONOCYTES (AUTO) 0.6 10^3/uL (0.1-1.4); ABSOLUTE NEUT (AUTO) 3.6 10^3/uL (1.7-8.2); BASOPHILS % (AUTO) 0.6 % (0-2); EOSINOPHILS % (AUTO) 2.1 % (0-6); HEMATOCRIT 28.8 % (37.9-51.0); HEMOGLOBIN 9.7 g/dL (13.5-17.0); LYMPHOCYTES % (AUTO) 20.4 % (13-45); MEAN CORPUSCULAR HEMOGLOBIN 29.4 pg (27.0-33.4); MEAN CORPUSCULAR HGB CONC 33.8 g/dL (32.0-36.0); MEAN CORPUSCULAR VOLUME 87 fl (80-97); MONOCYTES % (AUTO) 11.7 % (3-13); PLATELET COUNT 203 10^3/uL (150-450); RED BLOOD COUNT 3.31 10^6/uL (4.35-5.55); RED CELL DISTRIBUTION WIDTH 14.4 % (11.5-14.0); SEGMENTED NEUTROPHILS % (AUTO) 65.2 % (42-78); TOTAL CELLS COUNTED % (AUTO) 100 %; WHITE BLOOD COUNT 5.5 10^3/uL (4.0-10.5)
[2018-02-27 06:27] LABS: INTERNATIONAL RATION (INR) 0.99; PROTHROMBIN TIME 13.6 SEC (11.4-15.4)
[2018-02-27 06:28] LABS: PARTIAL THROMBOPLASTIN TIME 32.6 SEC (23.5-35.8)
--- NOTE | 2018-02-27 07:24 | PDOC H&P ---
History of Present Illness Admission Date/PCP: 02/27/18 00:05 IGNACIA SHORT MD Patient complains of: Chest pain History of Present Illness: BERNADETTE BURGOS is a 72 year old male with a past medical history of congestive heart failure, type 2 diabetes, prostate cancer, bladder cancer post surgery 3 status unclear, coronary artery disease status post coronary artery stenting 3 months ago at [facility]. In addition to nonoliguric end-stage renal failure. Patient presents with 2 days of vague nausea without vomiting developing intermittent chest pain of 2 out of 5 intensity pulling in nature retrosternal nonradiating, worsened by eating. In the emergency room he has an unremarkable workup and referred to the hospitalist for admission. He is pain-free he denies recent changes in medications and otherwise compliant with medication and lifestyle. Past Medical History Cardiac Medical History: Reports: Congestive Heart Failure - diastolic, Coronary Artery Disease, Hyperlipidema, Hypertension Denies: DVT, Myocardial Infarction, Pulmonary Embolism Pulmonary Medical History: Denies: Asthma, Chronic Obstructive Pulmonary Disease (COPD) Neurological Medical History: Reports: Seizures - X 3 > 20 yrs ago; no Rx Endocrine Medical History: Reports: Diabetes Mellitus Type 1, Diabetes Mellitus Type 2 Denies: Hyperthyroidism, Hypothyroidism Renal/ Medical History: Reports: End Stage Renal Disease Malignancy Medical History: Reports: Skin Cancer, Other GI Medical History: Denies: Cirrhosis, Gastroesophageal Reflux Disease, Hepatitis Musculoskeltal Medical History: Reports: Arthritis Skin Medical History: Denies: Eczema, Psoriasis Psychiatric Medical History: Reports: Depression, Post Traumatic Stress Disorder Past Surgical History Past Surgical History: Reports: Orthopedic Surgery - cervical X3, lumbar X1, Other - Excision of skin cancers. Total prostatectomy. Bladder surgery 3. Social History Information Source: Patient, [facility] Records Lives with: Family Smoking Status: Never Smoker Frequency of Alcohol Use: None Hx Recreational Drug Use: No Drugs: None Hx Prescription Drug Abuse: No - Advance Directive Resuscitation Status: Full Code Family History Family History: Hypertension Parental Family History Reviewed: Yes Children Family History Reviewed: Yes Sibling(s) Family History Reviewed.: Yes Medication/Allergy Home Medications: Amlodipine Besylate 10 mg PO DAILY 02/26/18 Aspirin [Aspirin 81 mg Chewable Tablet] 81 mg PO DAILY 02/26/18 Atorvastatin Calcium 40 mg PO DAILY 02/26/18 Azelastine/Fluticasone [Dymista Nasal [place]] 1 spray NS BID 02/26/18 Carvedilol [Coreg 25 mg Tablet] 1 tab PO Q12 02/26/18 Cholecalciferol (Vitamin D3) [Vitamin D3 1000 Unit Tablet] 1,000 unit PO DAILY 02/26/18 Cyanocobalamin (Vitamin B-12) [Vitamin B-12 Inj 1000 Mcg/1 ml Vial] 1,000 mcg IM ASDIR 02/26/18 Fluticasone Propionate [Flonase Nasal [place] 50 Mcg/[place] 16 gm] 2 spray NASL DAILY 02/26/18 Furosemide [Lasix 20 mg Tablet] 20 mg PO QAM 02/26/18 Insulin Aspart [Novolog Flexpen] 5 units SUBCUT TID 02/26/18 Iron Polysaccharide Complex [Ferrex 150] 150 mg PO DAILY 02/26/18 Pantoprazole Sodium [Protonix] 40 mg PO DAILY 02/26/18 Ticagrelor [Brilinta 90 mg Tablet] 1 tab PO BID 02/26/18 Allergies/Adverse Reactions: Iodinated Contrast- Oral and IV Dye Allergy (Verified 02/26/18 19:34) iodine Allergy (Verified 02/26/18 19:34) Penicillins Allergy (Verified 02/26/18 19:34) Review of Systems Constitutional: ABSENT: chills, fever(s), headache(s), weight gain, weight loss Eyes: ABSENT: visual disturbances Ears: ABSENT: hearing changes Cardiovascular: PRESENT: as per HPI. ABSENT: chest pain, dyspnea on exertion, edema, orthropnea, palpitations Respiratory: ABSENT: cough, hemoptysis Gastrointestinal: PRESENT: constipation, nausea. ABSENT: abdominal pain, diarrhea, hematemesis, hematochezia, vomiting Genitourinary: ABSENT: dysuria, hematuria Musculoskeletal: ABSENT: joint swelling Integumentary: ABSENT: rash, wounds Neurological: ABSENT: abnormal gait, abnormal speech, confusion, dizziness, focal weakness, syncope Psychiatric: ABSENT: anxiety, depression, homidical ideation, suicidal ideation Endocrine: ABSENT: cold intolerance, heat intolerance, polydipsia, polyuria Hematologic/Lymphatic: ABSENT: easy bleeding, easy bruising Physical Exam Vital Signs: Temp Pulse Resp BP Pulse Ox 97.9 F 66 16 145/57 H 99 02/27/18 03:13 02/27/18 05:03 02/27/18 03:13 02/27/18 03:13 02/27/18 03:13 Intake & Output 02/25/18 02/26/18 02/27/18 11:59 11:59 11:59 Intake Total 240 Output Total 150 Balance 90 Weight 115.7 kg General appearance: PRESENT: no acute distress, cooperative, other - Chronically ill-appearing Head exam: PRESENT: atraumatic, normocephalic Eye exam: PRESENT: conjunctiva pink, EOMI, PERRLA. ABSENT: scleral icterus Ear exam: PRESENT: normal external ear exam Mouth exam: PRESENT: moist, tongue midline Neck exam: ABSENT: carotid bruit, JVD, lymphadenopathy, thyromegaly Respiratory exam: PRESENT: clear to auscultation marisol, unlabored. ABSENT: prolonged expiratory phas, rales, retraction, rhonchi, wheezes Cardiovascular exam: PRESENT: RRR. ABSENT: diastolic murmur, rubs, systolic murmur Pulses: PRESENT: normal dorsalis pedis pul Vascular exam: PRESENT: normal capillary refill GI/Abdominal exam: PRESENT: normal bowel sounds, soft. ABSENT: distended, guarding, mass, organolmegaly, rebound, tenderness Rectal exam: PRESENT: deferred Extremities exam: PRESENT: full ROM. ABSENT: calf tenderness, clubbing, pedal edema Neurological exam: PRESENT: alert, awake, oriented to person, oriented to place , oriented to time, oriented to situation, CN II-XII grossly intact. ABSENT: motor sensory deficit Psychiatric exam: PRESENT: appropriate affect, normal mood. ABSENT: homicidal ideation, suicidal ideation Skin exam: PRESENT: dry, intact, warm. ABSENT: cyanosis, rash Results Laboratory Results: 02/27/18 06:03 02/27/18 04:36 02/27/18 02/27/18 04:36 06:03 WBC 5.5 RBC 3.31 L Hgb 9.7 L Hct 28.8 L MCV 87 MCH 29.4 MCHC 33.8 RDW 14.4 H Plt Count 203 Seg Neutrophils % 65.2 Lymphocytes % 20.4 Monocytes % 11.7 Eosinophils % 2.1 Basophils % 0.6 Absolute Neutrophils 3.6 Absolute Lymphocytes 1.1 Absolute Monocytes 0.6 Absolute Eosinophils 0.1 Absolute Basophils 0.0 Sodium 147.9 H Potassium 4.6 Chloride 116 H Carbon Dioxide 22 Anion Gap 10 BUN 46 H Creatinine 3.60 H Est GFR ( Amer) 20 L Est GFR (Non-Af Amer) 17 L Glucose 74 L Calcium 8.5 Triglycerides 132 Cholesterol 116.98 LDL Cholesterol Direct 66 VLDL Cholesterol 26.0 HDL Cholesterol 30 L 02/27/18 02/27/18 04:36 04:36 Creatine Kinase 44 L CK-MB (CK-2) 2.62 Troponin I 0.390 Impressions: Chest X-Ray 02/26/18 19:43 IMPRESSION: NO ACUTE RADIOGRAPHIC FINDING IN THE CHEST. 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
[2018-02-27] MEDS ORDERED: FUROSEMIDE 20 MG TABLET PO SCH (08:00)
[2018-02-27] MEDS ORDERED: MORPHINE SULFATE 10 MG/ML INJ IV PRN (08:16)
[2018-02-27] MEDS ORDERED: MORPHINE SULFATE 10 MG/ML INJ IV ONE ×2 (08:45→18:15)
[2018-02-27] MEDS ORDERED: LANSOPRAZOLE 30 MG TAB.RAP.DR PO SCH (10:00)
[2018-02-27] MEDS ORDERED: CARVEDILOL 12.5 MG TABLET PO SCH (10:00)
[2018-02-27] MEDS ORDERED: ASPIRIN 81 MG TABLET, CHEWABLE PO SCH (10:00)
[2018-02-27] MEDS ORDERED: TICAGRELOR 90 MG TABLET PO SCH (10:00)
[2018-02-27] MEDS ORDERED: FLUTICASONE NASAL SPRAY 50 MCG/SPRY 120 SPRAY/16 GM NASL SCH (10:00)
[2018-02-27] MEDS ORDERED: DOCUSATE SODIUM 100 MG CAPSULE PO SCH (10:00)
[2018-02-27] MEDS ORDERED: ATORVASTATIN CALCIUM 40 MG TABLET PO SCH (10:00)
--- NOTE | 2018-02-27 10:07 | EKG REPORT ---
SEVERITY:- ABNORMAL ECG - SINUS OR ECTOPIC ATRIAL RHYTHM FIRST DEGREE AV BLOCK BORDERLINE RIGHT AXIS DEVIATION RVH : Confirmed by: Joellen Palencia 27-Feb-2018 10:06:47
--- NOTE | 2018-02-27 10:08 | EKG REPORT ---
SEVERITY:- OTHERWISE NORMAL ECG - SINUS OR ECTOPIC ATRIAL RHYTHM BORDERLINE RIGHT AXIS DEVIATION RVH : Confirmed by: Joellen Palencia 27-Feb-2018 10:07:18
[2018-02-27 11:35] LABS: MEAN CORPUSCULAR HGB CONC 33.3 g/dL (32.0-36.0); MEAN CORPUSCULAR VOLUME 87 fl (80-97); PLATELET COUNT 215 10^3/uL (150-450); RED BLOOD COUNT 3.44 10^6/uL (4.35-5.55); RED CELL DISTRIBUTION WIDTH 14.9 % (11.5-14.0); WHITE BLOOD COUNT 7.3 10^3/uL (4.0-10.5)
[2018-02-27 12:06] LABS: CREATINE KINASE MB 2.68 ng/mL (<4.55)
[2018-02-27 12:12] LABS: TROPONIN I 0.464 ng/mL
[2018-02-27] MEDS ORDERED: NITROGLYCERIN 0.4 MG/TAB 25 TAB/BOTTLE ONE (12:20)
[2018-02-27] MEDS ORDERED: NITROGLYCERIN/D5W 50 MG/250 ML RTUINJ IV ONE (12:35)
--- NOTE | 2018-02-27 13:29 | PDOC TRANSFER SUMMARY ---
General Admission Date/PCP: 02/27/18 00:05 IGNACIA SHORT MD Transfer Date: 02/27/18 Resuscitation Status: Full Code - Transfer Medications Home Medications: Amlodipine Besylate [Norvasc 10 mg Tablet] 10 mg PO DAILY 02/27/18 Atorvastatin Calcium [Lipitor 80 mg Tablet] 80 mg PO QHS 02/27/18 Carvedilol [Coreg 25 mg Tablet] 25 mg PO Q12 02/27/18 Ergocalciferol (Vitamin D2) [Drisdol 50,000 unit (1.25MG) Capsule] 50,000 unit PO LAW@0800 02/27/18 Furosemide [Lasix 40 mg Tablet] 40 mg PO BID 02/27/18 Insulin Degludec [Tresiba Flextouch U-200] 70 units SQ QHS 02/27/18 Metolazone [Zaroxolyn 2.5 mg Tablet] 2.5 mg PO Q8 02/27/18 Oxycodone HCl/Acetaminophen [Endocet 5-325 Tablet] 1 tab PO Q4HP PRN 02/27/18 Pantoprazole Sodium [Protonix] 40 mg PO DAILY 02/27/18 Ticagrelor [Brilinta] 90 mg PO Q12 02/27/18 Tramadol HCl [Ultram 50 mg Tablet] 50 mg PO Q12HP PRN 02/27/18 Transfer Medications: Current Medications Aspirin (Aspirin 81 Mg Chewable Tablet) 81 mg PO DAILY KATIUSKA Stop: 03/29/18 09:59 Last Admin: 02/27/18 10:59 Dose: 81 mg Atorvastatin Calcium (Lipitor 40 Mg Tablet) 40 mg PO DAILY KATIUSKA Stop: 03/29/18 09:59 Last Admin: 02/27/18 11:00 Dose: 40 mg Carvedilol (Coreg 12.5 Mg Tablet) 25 mg PO Q12 KATIUSKA Stop: 03/29/18 09:59 Last Admin: 02/27/18 11:00 Dose: 25 mg Dextrose (Dextrose Inj 50% Syringe (25 Gm/50 Ml)) 12.5 gm IV PRN PRN; Protocol PRN Reason: FOR BG 50-69 IN ALERT PATIENT Stop: 03/28/18 23:55 Dextrose (Dextrose Inj 50% Syringe (25 Gm/50 Ml)) 25 gm IV PRN PRN; Protocol PRN Reason: PER PROTOCOL Stop: 03/28/18 23:55 Docusate Sodium (Colace 100 Mg Capsule) 100 mg PO BID KATIUSKA Stop: 03/29/18 09:59 Last Admin: 02/27/18 10:59 Dose: 100 mg Fluticasone Propionate (Flonase Nasal [place] [address] 50 Mcg/[place] [address] 16 Gm) 2 spray NASL DAILY KATIUSKA Stop: 03/29/18 09:59 Last Admin: 02/27/18 11:05 Dose: 2 spray Furosemide (Lasix 20 Mg Tablet) 20 mg PO QAM KATIUSKA Stop: 03/29/18 07:59 Last Admin: 02/27/18 09:40 Dose: 20 mg Glucagon (Glucagen Inj 1 Mg Vial) 1 mg IM PRN PRN; Protocol PRN Reason: Evaluate for BG < 70 Stop: 03/28/18 23:55 Glucose (Glutose 40% Gel 15 Gm Tube) 15 gm PO PRN PRN; Protocol PRN Reason: FOR BG 50-69 IN ALERT PATIENT Stop: 03/28/18 23:55 Glucose (Glutose 40% Gel 15 Gm Tube) 30 gm PO PRN PRN; Protocol PRN Reason: FOR BG < 50 IN ALERT PATIENT Stop: 03/28/18 23:55 Heparin Sodium (Porcine) (Heparin Inj 5,000 Units/Ml 1 Ml Syringe) 5,000 unit SUBCUT Q8 KATIUSKA Stop: 03/29/18 05:59 Last Admin: 02/27/18 06:21 Dose: 5,000 unit Insulin Human Lispro (Humalog Insulin 100 Unit/1 Ml 3 Ml Vial) 0 - 12 unit SUBCUT Q6HP PRN; Protocol PRN Reason: PER PROTOCOL Stop: 03/28/18 23:55 Lansoprazole (Prevacid 30 Mg Odt Tablet) 30 mg PO DAILY KATIUSKA Stop: 03/29/18 09:59 Last Admin: 02/27/18 10:59 Dose: 30 mg Morphine Sulfate (Morphine 10 Mg/Ml Inj) 2 mg IV Q4HP PRN PRN Reason: FOR CHEST PAIN Stop: 03/06/18 08:15 Nitroglycerin (Nitrostat 0.4 Mg (1/150 Gr) Tabs 25/Bottle) 1 tab SL Q5MP PRN PRN Reason: FOR CHEST PAIN Last Admin: 02/27/18 12:22 Dose: 1 tab Sodium Chloride (Saline Flush 2.5 Ml Monoject Prefil Syrin) 2.5 ml IV Q8 [facility] Stop: 03/29/18 05:59 Last Admin: 02/27/18 05:07 Dose: Not Given Ticagrelor (Brilinta 90 Mg Tablet) 90 mg PO BID [facility] Stop: 03/29/18 09:59 Last Admin: 02/27/18 11:04 Dose: 90 mg - Allergies Allergies/Adverse Reactions: Iodinated Contrast- Oral and IV Dye Allergy (Verified 02/26/18 19:34) iodine Allergy (Verified 02/26/18 19:34) Penicillins Allergy (Verified 02/26/18 19:34) Hospital Course Hospital Course: This is 72 years old male patient with multiple comorbidities including CHF, type 2 diabetes mellitus, history of prostate and bladder cancer , coronary artery disease status post coronary artery stenting which was done 3 months ago at [facility] and stage IV chronic kidney disease presented with chief complaint of chest pain. His troponin is trending upward the initial was 0.217 next 0.051 next 0.390 and the last one is 0.464. Patient did have active chest pain and has been on nitroglycerin drip. Cardiology consultation was made to Dr. Hoffman who evaluated the patient and recommended patient needs to be transferred. This morning also patient after he he moved very large bowel has some mild rectal bleeding which might be secondary to hemorrhoid. Physical Exam Vital Signs: Temp Pulse Resp BP Pulse Ox 97.7 F 71 16 160/53 H 95 02/27/18 10:58 02/27/18 10:58 02/27/18 10:58 02/27/18 10:58 02/27/18 10:58 Intake & Output 02/26/18 02/27/18 02/28/18 06:59 06:59 06:59 Intake Total 240 Output Total 150 Balance 90 Weight 115.7 kg General appearance: PRESENT: mild distress Head exam: PRESENT: atraumatic, normocephalic Eye exam: PRESENT: conjunctiva pink Mouth exam: PRESENT: moist Neck exam: ABSENT: carotid bruit, JVD, lymphadenopathy, thyromegaly Respiratory exam: PRESENT: clear to auscultation marisol. ABSENT: rales, rhonchi, wheezes Cardiovascular exam: PRESENT: RRR. ABSENT: diastolic murmur, rubs, systolic murmur GI/Abdominal exam: PRESENT: normal bowel sounds, soft. ABSENT: distended, guarding, mass, organolmegaly, rebound, tenderness Neurological exam: PRESENT: alert, awake, oriented to time, oriented to situation Psychiatric exam: PRESENT: normal mood Results Laboratory Results: 02/27/18 11:20 02/27/18 04:36 02/27/18 02/27/18 02/27/18 04:36 06:03 11:20 WBC 5.5 7.3 RBC 3.31 L 3.44 L Hgb 9.7 L 10.0 L Hct 28.8 L 30.0 L MCV 87 87 MCH 29.4 29.0 MCHC 33.8 33.3 RDW 14.4 H 14.9 H Plt Count 203 215 Seg Neutrophils % 65.2 Lymphocytes % 20.4 Monocytes % 11.7 Eosinophils % 2.1 Basophils % 0.6 Absolute Neutrophils 3.6 Absolute Lymphocytes 1.1 Absolute Monocytes 0.6 Absolute Eosinophils 0.1 Absolute Basophils 0.0 Sodium 147.9 H Potassium 4.6 Chloride 116 H Carbon Dioxide 22 Anion Gap 10 BUN 46 H Creatinine 3.60 H Est GFR ( Amer) 20 L Est GFR (Non-Af Amer) 17 L Glucose 74 L Calcium 8.5 Triglycerides 132 Cholesterol 116.98 LDL Cholesterol Direct 66 VLDL Cholesterol 26.0 HDL Cholesterol 30 L 02/27/18 02/27/18 02/27/18 04:36 04:36 11:20 Creatine Kinase 44 L CK-MB (CK-2) 2.62 2.68 Troponin I 0.390 0.464 Impressions: Chest X-Ray 02/26/18 19:43 IMPRESSION: NO ACUTE RADIOGRAPHIC FINDING IN THE CHEST. Plan Time Spent: Greater than 30 Minutes
[2018-02-27] MEDS ORDERED: HEPARIN SODIUM,PORCINE/D5W 25,000 UNIT/250 ML RTUINJ IV PRN (13:56)
[2018-02-27] MEDS ORDERED: HEPARIN SOD (PORCINE) 1,000 UNIT/ML 10 ML VIAL IV PRN (14:09)
[2018-02-27 15:44] VITALS: BP 167/52
--- NOTE | 2018-02-27 17:37 | PDOC CONSULTATION ---
Consultation Consult Date: 02/27/18 Attending physician:: MICAH AHUMADA Consult reason:: Chest pain in a patient with coronary artery disease, old KS, left anterior descending artery stent in January 2017. With elevated troponin I. History of Present Illness Admission Date/PCP: 02/27/18 00:05 IGNACIA SHORT MD Patient complains of: Intermittent chest pains, located in the retrosternal area , described as a burning sensation. History of Present Illness: BERNADETTE BURGOS is a 72 year old male was admitted with a 2 day history of vague nausea with intermittent chest burning in the retrosternal area. He states that it lasts for about 15 minutes to 20 minutes and brought on by by itself. There is associated nausea but no shortness of breath or palpitations. The patient denies any PND orthopnea or shortness of breath with exertion. But the patient due to his back does not exert himself much. He had one such episode of chest pain which was relieved promptly with one sublingual nitroglycerin. The patient states that this is slightly different from the pain he had when he had the KS in 2017 in the month of January. At that time the patient had chest pressure and heaviness and heartburn which she culminated the patient's EKG showing anterolateral ST segment elevation and was transferred to [facility] where he was diagnosed with the anterolateral STEMI. He had a cardiac cardiac catheterization which showed a 90% lesion in the mid right coronary artery which is nondominant, and the right ventricular branch which is a very small branch and a 70% narrowing. The circumflex had a 50% narrowing which is eccentric. The patient had a proximal LAD lesion of about 90% which was eccentric prior to the first diagonal and the first septal billet shearer. He had angioplasty and stenting with a drug-eluting stent of the LAD patient successfully. The patient's left ventricular gram at that time showed anteroapical hypokinesis with rest of the wall wall of sykes showing normal contractibility, but LV ejection fraction was mildly/borderline reduced at 50%. He has not had a stress test since his intervention in 2016. He initially thought that his stent was about in January 2018, but records prove that the patient had the stenting in January 2017. There is no palpitations or PND orthopnea or leg edema. There is no dizziness or syncope or near syncope. The patient does complain of generalized weakness and fatigue. He also when he was chest pain-free had a bowel movement and at the end of the bowel movement habits small drip of bright blood suggestive of bleeding from a hemorrhoid. He has no history of peptic ulcer disease although he has GERD symptoms. Note that the patient had taken Toradol the past 2-3 days for his pain in his neck and low back pain. He also has a history of hypertension diabetes mellitus, and chronic kidney disease stage V, which is now a stage IV with a GFR of 17. He has had a fistula placed about 6 weeks ago in the left, and is working. He has no presyncope or syncope. Note that the patient is on aspirin and Brilinta , and has not missed a dose. Past Medical History Cardiac Medical History: Reports: Congestive Heart Failure - diastolic, Coronary Artery Disease, Hypertension Denies: DVT, Myocardial Infarction, Pulmonary Embolism Cardiac History Note: He has dyslipidemia with a low HDL of 30, and a normal LDL and triglyceride levels. Pulmonary Medical History: Reports: Sleep Apnea - He is intolerant to wearing CPAP. Denies: Asthma, Chronic Obstructive Pulmonary Disease (COPD) Neurological Medical History: Reports: Seizures - X 3 > 20 yrs ago; no Rx Denies: Hemorrhagic CVA, Ischemic CVA, Migraine Neurological History Note: He has not had any seizures in a long time. Endocrine Medical History: Reports: Diabetes Mellitus Type 2 Denies: Hyperthyroidism, Hypothyroidism Renal/ Medical History: Reports: Chronic Kidney Disease Renal/ History Note: She has a history of chronic kidney disease stage V and has had an AV fistula placed in anticipation of the patient being instituted hemodialysis. But has not yet been on dialysis. Now this admission the patient's GFR is 17 and hence it is improved to a chronic kidney disease stage IV. Malignancy Medical History: Reports: Lymphoma, Skin Cancer, Other GI Medical History: Reports: Gastroesophageal Reflux Disease, Other - Today he had a small amount of rectal bleed most likely due to hemorrhoids. Denies: Cirrhosis, Hepatitis Musculoskeltal Medical History: Reports: Arthritis Skin Medical History: Denies: Eczema, Psoriasis Psychiatric Medical History: Reports: Depression, Post Traumatic Stress Disorder Hematology: Reports: Other - He gives a history of lymphoma, which was removed he states. Hematology History Note: No good history about the patient's lymphoma. But he states that he is free of that. Infectious Medical History: Reports: None Past Surgical History Past Surgical History: Reports: Cardiac Catheterization, Coronary Stent, Orthopedic Surgery - He has had C-spine surgery, and low back surgery., Other - Excision of skin cancers. Total prostatectomy. Bladder surgery 3. Social History Information Source: Patient Occupation: History obtained from patient and . Lives with: Family Smoking Status: Never Smoker Frequency of Alcohol Use: None Hx Recreational Drug Use: No Drugs: None Hx Prescription Drug Abuse: No - Advance Directive Resuscitation Status: Full Code Surrogate healthcare decision maker:: The patient's is a surrogate healthcare decision maker. Family History Family History: CAD, Hypertension Parental Family History Reviewed: Yes Children Family History Reviewed: Yes Sibling(s) Family History Reviewed.: Yes Medication/Allergy Home Medications: Amlodipine Besylate [Norvasc 10 mg Tablet] 10 mg PO DAILY 02/27/18 Atorvastatin Calcium [Lipitor 80 mg Tablet] 80 mg PO QHS 02/27/18 Carvedilol [Coreg 25 mg Tablet] 25 mg PO Q12 02/27/18 Ergocalciferol (Vitamin D2) [Drisdol 50,000 unit (1.25MG) Capsule] 50,000 unit PO LAW@0800 02/27/18 Furosemide [Lasix 40 mg Tablet] 40 mg PO BID 02/27/18 Insulin Degludec [Tresiba Flextouch U-200] 70 units SQ QHS 02/27/18 Metolazone [Zaroxolyn 2.5 mg Tablet] 2.5 mg PO Q8 02/27/18 Oxycodone HCl/Acetaminophen [Endocet 5-325 Tablet] 1 tab PO Q4HP PRN 02/27/18 Pantoprazole Sodium [Protonix] 40 mg PO DAILY 02/27/18 Ticagrelor [Brilinta] 90 mg PO Q12 18 Tramadol HCl [Ultram 50 mg Tablet] 50 mg PO Q12HP PRN 02/27/18 Allergies/Adverse Reactions: Iodinated Contrast- Oral and IV Dye Allergy (Verified 02/26/18 19:34) iodine Allergy (Verified 02/26/18 19:34) Penicillins Allergy (Verified 02/26/18 19:34) Review of Systems Constitutional: PRESENT: fatigue, other - Complains of generalized weakness. ABSENT: night sweats, weight gain, weight loss Eyes: PRESENT: other - No amblyopia or diplopia, or amaurosis fugax.. ABSENT: visual disturbances Ears: PRESENT: other - No tinnitus, no recurrent ear infections. ABSENT: hearing changes Nose, Mouth, and Throat: PRESENT: headache(s), other - No bleeding from the gums.. ABSENT: mouth pain, sore throat, vertigo Cardiovascular: PRESENT: chest pain, dyspnea on exertion, edema - He has intermittent edema ,only trace today, other - No PND, no syncope.. ABSENT: orthropnea, palpitations Respiratory: PRESENT: other - No wheezing. No pleuritic chest pain. No hemoptysis.. ABSENT: cough, hemoptysis Gastrointestinal: PRESENT: heartburn, nausea, other - Today he had a small amount of bright red blood per rectum after a bowel movement. ABSENT: abdominal pain, bloating, coffee ground emesis, constipation, diarrhea, dysphagia, vomiting Genitourinary: PRESENT: difficulty urinating, dysuria, other - Has symptoms suggestive of UTI.. ABSENT: hematuria, nocturia Musculoskeletal: PRESENT: back pain - He has chronic neck and back pain, other - No history of connective tissue disorder.. ABSENT: deformity, joint swelling , muscle weakness Integumentary: ABSENT: diaphoresis, erythema, lesions, pruritus, rash, wounds Neurological: PRESENT: tremor(s) - There is a past history of tremors and muscle fasciculations which was addressed in [facility] , [place], [place].. ABSENT: abnormal speech, confusion, focal weakness, frequent falls, memory loss, numbness, paresthesias, syncope, tingling , vertigo Psychiatric: PRESENT: depression. ABSENT: anxiety, hallucinations, homidical ideation, suicidal ideation Endocrine: PRESENT: other - He has no thyroid disorder. He has diabetes mellitus type 2. ABSENT: cold intolerance, heat intolerance, polydipsia, polyphagia, polyuria Hematologic/Lymphatic: ABSENT: easy bleeding, easy bruising, lymphadenopathy Allergic/Immunologic: PRESENT: other - He does have some nasal allergies and uses Flonase as needed.. ABSENT: seasonal rhinorrhea Physical Exam Vital Signs: Temp Pulse Resp BP Pulse Ox 98.2 F 67 16 167/52 H 99 02/27/18 15:43 02/27/18 15:43 02/27/18 15:43 02/27/18 15:43 02/27/18 15:43 Intake & Output 02/26/18 02/27/18 02/28/18 06:59 06:59 06:59 Intake Total 240 Output Total 150 Balance 90 Weight 115.7 kg General appearance: PRESENT: no acute distress, cooperative, obese, well- nourished Head exam: PRESENT: atraumatic, normocephalic Eye exam: PRESENT: conjunctiva pink, EOMI, PERRLA. ABSENT: nystagmus, periorbital swelling, scleral icterus Ear exam: PRESENT: normal external ear exam, TM's normal bilaterally. ABSENT: bleeding, drainage Mouth exam: PRESENT: moist, neck supple, tongue midline, other - There is no bleeding from the gums, and no ulcers in the mouth or tongue.. ABSENT: laceration Throat exam: ABSENT: post pharyngeal erythema, tonsillar erythema, tonsillar exudate, tonsillogmegaly Neck exam: PRESENT: full ROM, JVD - Is normal, other - Carotids are equal without any bruits. There is no goiter. Trachea central.. ABSENT: carotid bruit, lymphadenopathy, meningismus, tenderness, thyromegaly Respiratory exam: PRESENT: clear to auscultation marisol, symmetrical. ABSENT: accessory muscle use, chest wall tenderness, rales, retraction, rhonchi, stridor , tachypnea, wheezes Cardiovascular exam: PRESENT: other - S1 heard normally. S2 is normal there is no S3 or S4 gallops. There is no rub there is a systolic murmur left sternal border and the apex. Pulses: PRESENT: normal radial pulses, normal femoral pulses, +2 pedal pulses bilateral, other Vascular exam: PRESENT: normal capillary refill, other - There is a working A V fistula in the left arm.. ABSENT: pallor GI/Abdominal exam: PRESENT: normal bowel sounds, soft. ABSENT: ascites, guarding, hernia, Silveira's sign, organolmegaly, rebound Rectal exam: PRESENT: deferred Extremities exam: PRESENT: pedal edema - There is trace edema bilaterally. There is no cyanosis.. ABSENT: calf tenderness, clubbing, full ROM Musculoskeletal exam: PRESENT: ambulatory, full ROM, normal inspection. ABSENT : deformity, dislocation, tenderness Neurological exam: PRESENT: alert, awake, oriented to person, oriented to place , oriented to time, oriented to situation, reflexes normal, CN II-XII grossly intact, normal gait, other - There is no focal deficits.. ABSENT: ataxia, motor sensory deficit Psychiatric exam: PRESENT: appropriate affect, normal mood, other - His judgment and insight are normal. He does not appear to be agitated or depressed. Skin exam: PRESENT: normal color, warm. ABSENT: abrasion, cyanosis, erythema, jaundice, mottled, pallor, petechiae, rash, skin tears, urticaria, vesicles Results Laboratory Results: 02/27/18 11:20 02/27/18 04:36 02/27/18 02/27/18 02/27/18 04:36 06:03 11:20 WBC 5.5 7.3 RBC 3.31 L 3.44 L Hgb 9.7 L 10.0 L Hct 28.8 L 30.0 L MCV 87 87 MCH 29.4 29.0 MCHC 33.8 33.3 RDW 14.4 H 14.9 H Plt Count 203 215 Seg Neutrophils % 65.2 Lymphocytes % 20.4 Monocytes % 11.7 Eosinophils % 2.1 Basophils % 0.6 Absolute Neutrophils 3.6 Absolute Lymphocytes 1.1 Absolute Monocytes 0.6 Absolute Eosinophils 0.1 Absolute Basophils 0.0 Sodium 147.9 H Potassium 4.6 Chloride 116 H Carbon Dioxide 22 Anion Gap 10 BUN 46 H Creatinine 3.60 H Est GFR ( Amer) 20 L Est GFR (Non-Af Amer) 17 L Glucose 74 L Calcium 8.5 Triglycerides 132 Cholesterol 116.98 LDL Cholesterol Direct 66 VLDL Cholesterol 26.0 HDL Cholesterol 30 L 02/27/18 02/27/18 02/27/18 04:36 04:36 11:20 Creatine Kinase 44 L CK-MB (CK-2) 2.62 2.68 Troponin I 0.390 0.464 EKG Comments: Serial EKGs, including the one when he had chest pain which is relieved with sublingual nitroglycerin, showed sinus Rhythm. Incomplete right bundle branch block pattern. No acute changes. Impressions: Chest X-Ray 02/26/18 19:43 IMPRESSION: NO ACUTE RADIOGRAPHIC FINDING IN THE CHEST. Status: Image reviewed by me Assessment & Plan - Diagnosis (1) Acute coronary syndrome Is this a current diagnosis for this admission?: Yes Plan: Since the patient's chest symptoms were relieved with sublingual nitro will start the patient on nitroglycerin drip at 10 mcg/min and increase as tolerated. We will continue the patient's aspirin and Brilinta. We will continue the patient's Coreg. And also continue to start the patient on full dose IV heparin infusion after bolus for NSTEMI, and watch closely for any bleeding complications. Also arrangements are being made to transfer the patient to [facility] for possible cardiac catheterization. I have discussed the case with Dr. Buchanan, the covering automotive glass installer for Dr. Bowie, who did the stent procedure in January 2017. (2) NSTEMI (non-ST elevated myocardial infarction) Is this a current diagnosis for this admission?: Yes Plan: As discussed above at present on IV nitroglycerin the patient's pain-free the patient will be transferred to [facility] under the hospitalist care since the patient has multiple comorbidities, and they have would consult cardiology. (3) Coronary artery disease Qualifiers: Coronary Disease-Associated Artery/Lesion type: [place] artery [place] vs. transplanted heart: [place] heart Associated angina: with other forms of angina Qualified Code(s): I25.118 - Atherosclerotic heart disease of [place] coronary artery with other forms of angina pectoris Is this a current diagnosis for this admission?: Yes Plan: The [place] for secondary prevention. The patient most likely should be on long- term Brilinta, and aspirin. (4) History of coronary angioplasty Is this a current diagnosis for this admission?: Yes Plan: The patient will possibly have a repeat cardiac catheterization to see if he needs a percutaneous revascularization. (5) History of placement of stent in LAD coronary artery Is this a current diagnosis for this admission?: Yes Plan: If he does have a cardiac catheterization this which show the patency of the stent placed in the LAD in 2017. (6) Hypertension Qualifiers: Hypertension type: essential hypertension Qualified Code(s): I10 - Essential (primary) hypertension Is this a current diagnosis for this admission?: Yes Plan: The patient blood pressure remained stable continue his amlodipine and Coreg and IV nitroglycerin. (7) Diabetes mellitus with kidney complication Qualifiers: Diabetes mellitus type: type 2 Diabetes mellitus long term care administrator insulin use: with shelter use Diabetes mellitus complication detail: with chronic kidney disease Is this a current diagnosis for this admission?: Yes Plan: The patient will have Accu-Cheks checked before meals 3 times daily and at bedtime, and will be covered with sliding scale regular insulin as per scale. (8) Dyslipidemia Is this a current diagnosis for this admission?: Yes Plan: Would recommend decrease the patient's atorvastatin to 40 mg p.o. daily from 80 mg per daily, with the hope that this will bring the HDL level up the other alternative is to stop the patient's atorvastatin, and start him on Crestor, which is known to improve the level of HDL in some patients. (9) History of prostate cancer Is this a current diagnosis for this admission?: Yes (10) History of bladder cancer Is this a current diagnosis for this admission?: Yes Plan: This appears to be stable. (11) Chronic kidney disease, stage IV (severe) Is this a current diagnosis for this admission?: Yes Plan: Avoid nephrotoxic agents, and watch for volume overload congestive heart failure. The patient may need temporary or permanent hemodialysis if he undergoes a cardiac catheterization. The patient is aware of this. He does have a working AV fistula. (12) History of CKD stage 5 Is this a current diagnosis for this admission?: Yes (13) Depression Is this a current diagnosis for this admission?: Yes Plan: His depression at present seems to be controlled without any medications. (14) PTSD (post-traumatic stress disorder) Is this a current diagnosis for this admission?: Yes Plan: This appears to be stable at present without any treatment with medication. (15) Small rectal bleed Is this a current diagnosis for this admission?: Yes Plan: Will observe closely for further bleeding, since the patient is on multiple coagulants. (16) GERD (gastroesophageal reflux disease) Is this a current diagnosis for this admission?: Yes Plan: We will continue the patient on proton pump inhibitor. (17) Sleep apnea in adult Is this a current diagnosis for this admission?: Yes Plan: Discussed the option of seeing a dentist to see other forms of therapy since he is intolerant to CPAP importance of treating sleep apnea discussed with the patient since this could lead to cardiac arrhythmias, and hypertensioN, and pulmonary hypertension. (18) Chest pain Qualifiers: Chest pain type: unspecified Qualified Code(s): R07.9 - Chest pain, unspecified Is this a current diagnosis for this admission?: Yes (19) Ischemic cardiomyopathy Is this a current diagnosis for this admission?: Yes Plan: We will continue the patient on Coreg. Unable to place the patient on TAURUS inhibitor in view of the patient's renal status later once the cardiac status is stabilized would consider starting the patient on hydralazine, or if the patient goes into dialysis treatment therapy then would consider TAURUS inhibitor. We will continue the patient on Lasix p.o. daily - Notes Notes: The patient is being transferred to [facility] in a stable condition in spite of his critical illnesses. The patient is aware of the benefits and risks of transfer. Medical decision making was of high complexity - Time Time Spent: 50 to 70 Minutes - His medications have been reviewed, his case has been discussed with the patient and his . Also discussed the case with the hospitalist taking care of the patient and other caregiving providers. New medications have been instituted. More than 50% of the time spent on direct patient care. His chest x-ray and EKG were personally reviewed by me and interpreted by me. Smoking Education Provided: Other - The patient is a non-smoker. [facility] available, since they already have a bed in [place], [place]. Disposition: Although stable the patient's prognosis is guarded.
[2018-02-27 17:42] LABS: AMORPHOUS SEDIMENT,URINE TRACE /HPF; APPEARANCE,URINE TURBID; BILIRUBIN,URINE NEGATIVE (NEGATIVE); COLOR,URINE YELLOW; GLUCOSE, URINE NEGATIVE (NEGATIVE); KETONES,URINE NEGATIVE (NEGATIVE); LEUKOCYTE ESTERASE,URINE LARGE (NEGATIVE); NITRITE,URINE NEGATIVE (NEGATIVE); PROTEIN,URINE >=500 mg/dL (NEGATIVE); URINE SPECIFIC GRAVITY 1.011; UROBILINOGEN,URINE NEGATIVE mg/dL (<2.0)
[2018-02-27] MEDS ORDERED: NITROGLYCERIN 50 MG/D5W 250 ML IV PRN (17:51)
--- NOTE | 2018-02-27 21:20 | EKG REPORT ---
SEVERITY:- ABNORMAL ECG - SINUS RHYTHM FIRST DEGREE AV BLOCK : Confirmed by: Joellen Palencia 27-Feb-2018 21:19:29
== END 2018-02-27 18:12 | disposition short-term general hospital (02) ==
LOC: ER 19:16 → EH 02-27 00:05 → 3W 02-27 03:02
PROVIDERS: ADMIT Internal Medicine; ATTEND Internal Medicine
DX: R07.9 Chest pain, unspecified (principal); K62.5 Hemorrhage of anus and rectum; E11.22 Type 2 diabetes mellitus with diabetic chronic kidney disease; I13.0 Hypertensive heart and chronic kidney disease with heart failure and stage 1 through stage 4 chronic kidney disease, or unspecified chronic kidney disease; N18.4 Chronic kidney disease, stage 4 (severe); I50.30 Unspecified diastolic (congestive) heart failure; R11.0 Nausea; I25.118 Atherosclerotic heart disease of native coronary artery with other forms of angina pectoris; R53.1 Weakness; M54.5 Low back pain; R53.83 Other fatigue; E78.5 Hyperlipidemia, unspecified; M54.2 Cervicalgia; K21.9 Gastro-esophageal reflux disease without esophagitis; R51 Headache; G89.29 Other chronic pain; I45.19 Other right bundle-branch block; F32.9 Major depressive disorder, single episode, unspecified; F43.10 Post-traumatic stress disorder, unspecified; G47.30 Sleep apnea, unspecified; I25.5 Ischemic cardiomyopathy; R79.89 Other specified abnormal findings of blood chemistry; R30.0 Dysuria; R25.1 Tremor, unspecified; I25.2 Old myocardial infarction; Z85.51 Personal history of malignant neoplasm of bladder; Z85.46 Personal history of malignant neoplasm of prostate; Z95.5 Presence of coronary angioplasty implant and graft; Z79.82 Long term (current) use of aspirin; Z85.72 Personal history of non-Hodgkin lymphomas; Z85.828 Personal history of other malignant neoplasm of skin; Z90.79 Acquired absence of other genital organ(s); Z98.890 Other specified postprocedural states; Z82.49 Family history of ischemic heart disease and other diseases of the circulatory system; Z79.4 Long term (current) use of insulin; Z79.02 Long term (current) use of antithrombotics/antiplatelets; Z79.899 Other long term (current) drug therapy
CPT/HCPCS: 93005 ×2; 99285; 96374; 36415 ×2; 82553 ×2; 82962; 82550 ×2; 83690; 85025 ×2; 85027; 85610; 85730; 80048; 80053; 81001; 84484 ×2; 80061; 71045; 93010 ×2; J1644 ×3; A9270 ×10; J2270 ×2; J3490 ×2; J7030

== ENCOUNTER 2018-12-09 19:04 | Inpatient (IN) | payer MEDICARE, OTHER ==
[2018-12-09 20:15] LABS: ABSOLUTE EOSINOPHILS # (AUTO) 0.1 10^3/uL (0.0-0.6); ABSOLUTE LYMPHOCYTES (AUTO) 0.7 10^3/uL (0.5-4.7); ABSOLUTE MONOCYTES (AUTO) 0.5 10^3/uL (0.1-1.4); ABSOLUTE NEUT (AUTO) 5.6 10^3/uL (1.7-8.2); BASOPHILS % (AUTO) 0.4 % (0-2); EOSINOPHILS % (AUTO) 1.2 % (0-6); HEMATOCRIT 31.7 % (37.9-51.0); HEMOGLOBIN 10.7 g/dL (13.5-17.0); LYMPHOCYTES % (AUTO) 10.3 % (13-45); MEAN CORPUSCULAR HEMOGLOBIN 33.1 pg (27.0-33.4); MEAN CORPUSCULAR HGB CONC 33.6 g/dL (32.0-36.0); MEAN CORPUSCULAR VOLUME 98 fl (80-97); MONOCYTES % (AUTO) 7.6 % (3-13); PLATELET COUNT 256 10^3/uL (150-450); RED BLOOD COUNT 3.23 10^6/uL (4.35-5.55); RED CELL DISTRIBUTION WIDTH 16.3 % (11.5-14.0); SEGMENTED NEUTROPHILS % (AUTO) 80.5 % (42-78); TOTAL CELLS COUNTED % (AUTO) 100 %; WHITE BLOOD COUNT 6.9 10^3/uL (4.0-10.5)
[2018-12-09 20:20] LABS: VENOUS BLOOD BASE EXCESS 4.3 mmol/L; VENOUS BLOOD HCO3 28.9 mmol/L (20-32); VENOUS BLOOD PCO2 43.4 mmHg (35-63); VENOUS BLOOD PH 7.44 (7.30-7.42)
[2018-12-09 20:32] LABS: INTERNATIONAL RATION (INR) 0.95; PROTHROMBIN TIME 13.1 SEC (11.4-15.4)
[2018-12-09 20:36] LABS: ALANINE AMINOTRANSFERASE 16 U/L (21-72); ALBUMIN 3.4 g/dL (3.5-5.0); ALKALINE PHOSPHATASE 103 U/L (38-126); ANION GAP 10 (5-19); ASPARTATE AMINO TRANSFERASE 11 U/L (17-59); BILIRUBIN,DIRECT 0.4 mg/dL (0.0-0.4); BILIRUBIN,TOTAL 0.7 mg/dL (0.2-1.3); BLOOD UREA NITROGEN 23 mg/dL (7-20); CALCIUM 8.7 mg/dL (8.4-10.2); CARBON DIOXIDE 30 mmol/L (22-30); CHLORIDE 99 mmol/L (98-107); GLUCOSE 193 mg/dL (75-110); POTASSIUM 3.5 mmol/L (3.6-5.0); SODIUM 139.2 mmol/L (137-145); TOTAL PROTEIN 6.6 g/dL (6.3-8.2)
[2018-12-09 21:51] LABS: A TYPE INFLUENZA AG NEGATIVE (NEGATIVE); B INFLUENZA AG NEGATIVE (NEGATIVE)
--- NOTE | 2018-12-09 21:53 | RADIOLOGY REPORT (SQ) ---
EXAM DESCRIPTION: Chest single view CLINICAL HISTORY: 73 years Male, fever COMPARISON: 02/26/2018, 09/04/2016 FINDINGS: In the right midlung field there is a 2.2 cm noncalcified nodular density. This is described as a hamartoma on a CT from 04/13/2016, although those images are not available for comparison. The nodule is similar to chest radiograph from 09/04/2016. No acute infiltrates. No pneumothorax or pleural effusion. Mediastinum is within normal limits for this positioning. Left axillary stents are noted. IMPRESSION: 1. No acute pulmonary findings.
[2018-12-09] MEDS ORDERED: LIDOCAINE 1%/EPINEPHRINE INJ 20 ML VIAL INJ ONE (22:34)
[2018-12-10 00:38] LABS: GLUCOSE,CSF 96 mg/dL (40-70); PROTEIN,CSF 71 mg/dL (12-60)
[2018-12-10 00:53] LABS: RED BLOOD CELL,CSF 3 /uL (0-10)
[2018-12-10 00:55] LABS: APPEARANCE ALL TUBES CLEAR; COLOR ALL TUBES COLORLESS; CSF TOTAL VOLUME 5.5 CC; CSF TUBE NUMBER 1; VOLUME TUBE 1 1.8 CC; VOLUME TUBE 2 1.5 CC; VOLUME TUBE 4 1.2 CC; WHITE BLOOD CELL,CSF 5 /uL (0-5)
[2018-12-10 00:58] LABS: APPEARANCE ALL TUBES CLEAR; COLOR ALL TUBES COLORLESS; CSF TOTAL VOLUME 5.5 CC; CSF TUBE NUMBER 4; VOLUME TUBE 1 1.8 CC; VOLUME TUBE 2 1.5 CC; VOLUME TUBE 4 1.2 CC
[2018-12-10] MEDS ORDERED: ACETAMINOPHEN 325 MG TABLET PO ONE (01:02)
[2018-12-10 01:03] LABS: RED BLOOD CELL,CSF 0 /uL (0-10)
[2018-12-10 01:05] LABS: WHITE BLOOD CELL,CSF 3 /uL (0-5)
--- NOTE | 2018-12-10 01:09 | ER Document Report ---
ED General - General Chief Complaint: Altered Mental Status Stated Complaint: AMS/FEVER Time Seen by Provider: 12/09/18 20:57 Primary Care Provider: Camron JOHNSON MD [Primary Care Provider] - Follow up as needed Cannot obtain history due to: Altered mental status Notes: Patient is a 73-year-old male with a past medical history of end-stage renal disease with dialysis dependence, CHF, sleep apnea, hypertension, presents with complaints of fever and confusion. Patient is somewhat confused, does not provide meaningful history at the time of my assessment. His does provide majority of the history. She relates that after picking patient up from dialysis today he seemed "completely out of it". States that she had to help him into the vehicle because he was so weak and that this is very unusual for him. She states that when he got home he was so weak he could not get out of the car and she required neighbors to assist them in getting into the house. She notes that once she got the patient into his chair he seemed to be staring off but did not talk much and did not make sense when he did speak. She states she felt him he felt extremely warm. At that point she contacted EMS who came out to the house and found that the patient had a temperature to 101.7 F. He was transported to the emergency department. At the time of my evaluation the patient himself states that he has no acute complaints other than some chronic mild low back discomfort. This is a gradual onset throbbing, constant continuous discomfort. Moving worsens the pain, nothing improves the pain. Has had this pain for quite some time and it is not new or different today. He does not make urine. reports that he has had a mild cough but no additional symptoms. He denies headache or neck pain. TRAVEL OUTSIDE OF THE [place] IN LAST 30 DAYS: No - Related Data Allergies/Adverse Reactions: Iodinated Contrast- Oral and IV Dye Allergy (Verified 02/26/18 19:34) iodine Allergy (Verified 02/26/18 19:34) Penicillins Allergy (Verified 02/26/18 19:34) Past Medical History - General Information source: Patient, Relative Cannot obtain history due to: Altered mental status - Social History Smoking Status: Never Smoker Frequency of alcohol use: None Drug Abuse: None Lives with: Spouse/Significant other Family History: CAD, Hypertension Patient has suicidal ideation: No Patient has homicidal ideation: No - Past Medical History Cardiac Medical History: Reports: Hx Congestive Heart Failure - diastolic, Hx Coronary Artery Disease, Hx Hypercholesterolemia, Hx Hypertension Denies: Hx DVT, Hx Heart Attack, Hx Pulmonary Embolism Pulmonary Medical History: Reports: Hx Sleep Apnea - He is intolerant to wearing CPAP. Denies: Hx Asthma, Hx COPD Neurological Medical History: Reports: Hx Seizures - X 3 > 20 yrs ago; no Rx. Denies: Hx Migraine Endocrine Medical History: Reports: Hx Diabetes Mellitus Type 1, Hx Diabetes Mellitus Type 2. Denies: Hx Hyperthyroidism, Hx Hypothyroidism Renal/ Medical History: Reports: Hx End Stage Renal Disease. Denies: Hx Peritoneal Dialysis Malignancy Medical History: Reports Hx Lymphoma, Reports Hx Prostate Cancer, Reports Hx Skin Cancer GI Medical History: Reports: Hx Gastroesophageal Reflux Disease. Denies: Hx Cirrhosis, Hx Hepatitis Musculoskeletal Medical History: Reports Hx Arthritis Skin Medical History: Denies Hx Eczema, Denies Hx Psoriasis Psychiatric Medical History: Reports: Hx Depression, Hx Post Traumatic Stress Di sorder Infectious Medical History: Denies: Hx Hepatitis Past Surgical History: Reports: Hx Cardiac Catheterization, Hx Coronary Stent, Hx Genitourinary Surgery - Prostate removed, Hx Orthopedic Surgery - He has had C-spine surgery, and low back surgery., Hx Urinary Tract Surgery - bladder, Other - Excision of skin cancers. Total prostatectomy. Bladder surgery 3. - Immunizations Hx Diphtheria, Pertussis, Tetanus Vaccination: Yes Hx Pneumococcal Vaccination: 06/06/11 Review of Systems - Review of Systems Notes: Constitutional: Positive for fever. HENT: Negative for sore throat. Eyes: Negative for visual changes. Cardiovascular: Negative for chest pain. Respiratory: Negative for shortness of breath. Positive for cough Gastrointestinal: Negative for abdominal pain, vomiting or diarrhea. Genitourinary: Negative for dysuria. Musculoskeletal: Positive for low back pain Skin: Negative for rash. Neurological: Negative for headaches, weakness or numbness. 10 point ROS negative except as marked above and in HPI. Physical Exam - Vital signs Vitals: Temp Pulse Resp BP Pulse Ox 100.7 F H 106 H 30 H 127/48 H 95 12/09/18 19:21 12/09/18 19:21 12/09/18 19:21 12/09/18 19:21 12/09/18 19:21 Interpretation: Tachycardic, Tachypneic, Febrile Notes: PHYSICAL EXAMINATION: GENERAL: Elderly male, appears mildly unwell but in no acute distress HEAD: Atraumatic, normocephalic. EYES: Pupils equal round and reactive to light, extraocular movements intact, sclera anicteric, conjunctiva are normal. ENT: nares patent, oropharynx clear without exudates. Moderately dry mucous membranes. NECK: Normal range of motion, supple without lymphadenopathy, no meningismus LUNGS: Breath sounds clear to auscultation bilaterally and equal. No wheezes rales or rhonchi. HEART: Regular tachycardia without murmurs ABDOMEN: Soft, obese abdomen, nontender, normoactive bowel sounds. No guarding, no rebound. No masses appreciated. EXTREMITIES: Normal range of motion, no pitting or edema. No cyanosis. NEUROLOGICAL: No focal neurological deficits. Moves all extremities spontaneou sly and on command. PSYCH: Somewhat somnolent but does wake easily. Oriented to person, place but not month or current events which states is completely off baseline for him. SKIN: Warm, Dry, normal turgor, no rashes or lesions noted. Course - Re-evaluation Re-evalutation: 12/10/18 01:08 Patient presents with altered mental status and fever of unclear etiology. Patient is overall nontoxic in appearance, looks like he does not feel well but in no distress of any kind. He has no meningismus or headache on exam. His ch est x-ray is without evidence of pneumonia. He does not make urine. Flu test negative. Labs notable for chronic kidney disease although did not show any other notable findings. A lumbar puncture was undertaken given that the patient does have fever and confusion. This likewise appears normal with 5 white blood cells in the initial tube. CSF protein and glucose are both very mildly elevated which is nonspecific. CT imaging of head will also be undertaken to rule out a very unusual presentation of something along the lines of intracranial abscess or mass again this seems highly unlikely in this context. However the patient does remain somewhat confused, is globally very weak, continues to have recurrent fever here in the emergency department. Blood cultures are pending. Will discuss with the hospitalist for admission. 12/10/18 01:26 I did discuss this case with Dr. Rasheed who recommends beginning empiric antibiotic coverage. I started cefepime 2 g, vancomycin 2 g. She accepts the patient for admission. - Vital Signs Vital signs: Temp Pulse Resp BP Pulse Ox 101.2 F H 106 H 21 H 123/50 L 97 12/09/18 23:44 12/09/18 19:21 12/09/18 23:41 12/09/18 23:41 12/09/18 23:41 - Laboratory Result Diagrams: 12/09/18 19:52 12/09/18 19:52 Laboratory results interpreted by me: 12/09/18 12/09/18 12/09/18 19:52 19:52 19:52 RBC 3.23 L Hgb 10.7 L Hct 31.7 L MCV 98 H RDW 16.3 H Seg Neutrophils % 80.5 H Lymphocytes % 10.3 L VBG pH 7.44 H Potassium 3.5 L BUN 23 H Creatinine 3.75 H Est GFR ( Amer) 19 L Est GFR (Non-Af Amer) 16 L Glucose 193 H POC Glucose AST 11 L ALT 16 L Albumin 3.4 L CSF Glucose CSF Total Protein 12/09/18 12/09/18 20:14 23:40 RBC Hgb Hct MCV RDW Seg Neutrophils % Lymphocytes % VBG pH Potassium BUN Creatinine Est GFR ( Amer) Est GFR (Non-Af Amer) Glucose POC Glucose 187 H AST ALT Albumin CSF Glucose 96 H CSF Total Protein 71 H - Diagnostic Test Radiology reviewed: Image reviewed, Reports reviewed Radiology results interpreted by me: 12/10/18 01:27 Chest x-ray: No acute infiltrate or pneumothorax Procedures - Lumbar Puncture Lumbar puncture Consent obtained: Yes Lumbar puncture pre-procedure: Sterile PPE donned Patient position: Sitting Needle size: 22 Lumbar puncture location: L4-5 Anesthetic type: 1% Lidocaine w/epi mL's of anesthetic: 8 Amount/type of drainage: 6 cc clear Number of attempts: 3 Complications: No Discharge - Discharge Clinical Impression: SIRS (systemic inflammatory response syndrome), Generalized weakness Altered mental status Qualifiers: Altered mental status type: disorientation Qualified Code(s): R41.0 - Disorientation, unspecified Fever Qualifiers: Fever type: unspecified Qualified Code(s): R50.9 - Fever, unspecified Condition: Fair Disposition: ADMITTED INPATIENT Admitting Provider: Kathya (Hospitalist) Unit Admitted: Telemetry Referrals: Camron JOHNSON MD [Primary Care Provider] - Follow up as needed
[2018-12-10] MEDS ORDERED: VANCOMYCIN HCL INJ 1000 MG VIAL IV ONE (01:23)
[2018-12-10] MEDS ORDERED: CEFEPIME 2 GM/D5W RTU 2 GM/50 ML RTUPB IV ONE (01:45)
--- NOTE | 2018-12-10 02:29 | RADIOLOGY REPORT (SQ) ---
EXAM DESCRIPTION: CT HEAD WITHOUT IV CONTRAST COMPLETED DATE/TME: 12/10/2018 01:10 CLINICAL HISTORY: 73 years Male, ams, fever COMPARISON:Feb 08 2018 TECHNIQUE: No contrast. Coronal and sagittal reformat. This exam was performed according to our departmental dose-optimization program, which includes automated exposure control, adjustment of the mA and/or kV according to patient size and/or use of iterative reconstruction technique. FINDINGS: No hemorrhage or infarct. No mass, mass effect, or midline shift. White matter microangiopathy, parenchymal volume loss, and atherosclerosis. Brain and extra-axial structures appear otherwise intact. IMPRESSION: No acute findings.
[2018-12-10] MEDS ORDERED: DEXTROSE 50%-WATER 25 GM/50 ML DISP.SYRIN IV PRN ×2 (04:23)
[2018-12-10] MEDS ORDERED: GLUCAGON,HUMAN RECOMB 1 MG INJ IM PRN (04:23)
[2018-12-10] MEDS ORDERED: DEXTROSE 40% GEL 15 GM TUBE PO PRN ×2 (04:23)
--- NOTE | 2018-12-10 04:25 | PDOC H&P ---
History of Present Illness Admission Date/PCP: 12/10/18 01:32 K Alirio JOHNSON MD Patient complains of: confusion and fever History of Present Illness: BERNADETTE BURGOS is a 73 year old man who is HD dependent with insulin dept diabetes, CHF, bladder cancer who was not feeling well after HD today, and that is unusual for him. He was very tired and couldnt get out of the car, his states that he is usually fine after HD. Shortly thereafter he developed a fever of 101.7 and his called EMS. Here he was found to be confused by the ED MD, cultures drawn (makes no urine) and LP was performed when no other source of infection was obvious. CT head neg for acute changes. On my eval the pt was oriented to person and hospital (didnt know which), could not remember his address, stated these were not normal for him. I obtained all hx and info from and ED MD. Due to FUO in HD dept patient with an acute encephalopathy he is now admitted to the [facility] on the hospitalist service. No CP or SOB reported, he has a chronic cough, he has intermittant severe bladder spasm pain Past Medical History Cardiac Medical History: Reports: Congestive Heart Failure - diastolic, Coronary Artery Disease, Hyperlipidema, Hypertension Denies: DVT, Myocardial Infarction, Pulmonary Embolism Pulmonary Medical History: Reports: Sleep Apnea - He is intolerant to wearing CPAP. Denies: Asthma, Chronic Obstructive Pulmonary Disease (COPD) EENT Medical History: Reports: Other - none reported Neurological Medical History: Reports: Seizures - X 3 > 20 yrs ago; no Rx Denies: Migraine Endocrine Medical History: Reports: Diabetes Mellitus Type 1, Diabetes Mellitus Type 2, Obesity Denies: Hyperthyroidism, Hypothyroidism Renal/ Medical History: Reports: End Stage Renal Disease Malignancy Medical History: Reports: Lymphoma, Skin Cancer, Other - bladder cancer GI Medical History: Reports: Gastroesophageal Reflux Disease Denies: Cirrhosis, Hepatitis Musculoskeltal Medical History: Reports: Arthritis Skin Medical History: Denies: Eczema, Psoriasis Psychiatric Medical History: Reports: Depression, Post Traumatic Stress Disorder, Other - claustrophobia Denies: Substance Abuse, Tobacco Dependency Hematology: Denies: Bleeding Tendencies Infectious Medical History: Reports: Methicillin-Resistant Staph Aureus Past Surgical History Past Surgical History: Reports: Cardiac Catheterization, Coronary Stent, Orthopedic Surgery - He has had C-spine surgery, and low back surgery., Vascular Surgery - left upper arm dialysis fistula, Other - Excision of skin cancers,Total prostatectomy,Bladder surgery 3,Lipoma surg Social History Information Source: Patient, Relative, Emergency Med Personnel, [facility] Records Lives with: Spouse/Significant other Smoking Status: Former Smoker Last Time Smoked: 10 years ago Frequency of Alcohol Use: None Hx Recreational Drug Use: No Drugs: None Hx Prescription Drug Abuse: No Past Social History Note: disabled, retired from [employer], to his for 54 years - Advance Directive Resuscitation Status: Full Code Surrogate healthcare decision maker:: Josephine Burgos [phone] Family History Family History: CAD, Hypertension Parental Family History Reviewed: Yes - mother with dementia Children Family History Reviewed: Yes - daughter with autoimmune disease Sibling(s) Family History Reviewed.: Unknown Medication/Allergy Home Medications: Amlodipine Besylate [Norvasc 10 mg Tablet] 10 mg PO DAILY 02/27/18 Atorvastatin Calcium [Lipitor 80 mg Tablet] 80 mg PO QHS 02/27/18 Carvedilol [Coreg 25 mg Tablet] 25 mg PO Q12 02/27/18 Ergocalciferol (Vitamin D2) [Drisdol 50,000 unit (1.25MG) Capsule] 50,000 unit PO LAW@0800 02/27/18 Furosemide [Lasix 40 mg Tablet] 40 mg PO BID 02/27/18 Insulin Degludec [Tresiba Flextouch U-200] 70 units SQ QHS 02/27/18 Metolazone [Zaroxolyn 2.5 mg Tablet] 2.5 mg PO Q8 02/27/18 Oxycodone HCl/Acetaminophen [Endocet 5-325 Tablet] 1 tab PO Q4HP PRN 02/27/18 Pantoprazole Sodium [Protonix] 40 mg PO DAILY 02/27/18 Ticagrelor [Brilinta] 90 mg PO Q12 18 Tramadol HCl [Ultram 50 mg Tablet] 50 mg PO Q12HP PRN 02/27/18 Allergies/Adverse Reactions: Iodinated Contrast- Oral and IV Dye Allergy (Verified 02/26/18 19:34) iodine Allergy (Verified 02/26/18 19:34) Penicillins Allergy (Verified 02/26/18 19:34) Review of Systems ROS unobtainable: Due to mental status, Other - please see HPI for the points I obtained from spouse and ED All systems: reviewed and no additional remarkable complaints except as stated Physical Exam Vital Signs: Temp Pulse Resp BP Pulse Ox 101.2 F H 106 H 26 H 137/53 H 99 12/09/18 23:44 12/09/18 19:21 12/10/18 02:04 12/10/18 02:04 12/10/18 02:04 Intake & Output 12/08/18 12/09/18 12/10/18 06:59 06:59 06:59 Intake Total 50 Balance 50 Weight 108.862 kg General appearance: PRESENT: mild distress, morbidly obese Head exam: PRESENT: atraumatic, normocephalic Eye exam: PRESENT: EOMI. ABSENT: conjunctival injection, scleral icterus Ear exam: PRESENT: normal external ear exam Mouth exam: PRESENT: dry mucosa, tongue midline Neck exam: ABSENT: tenderness Respiratory exam: PRESENT: decreased breath sounds, unlabored. ABSENT: rales, rhonchi, wheezes Pulses: PRESENT: normal radial pulses GI/Abdominal exam: PRESENT: normal bowel sounds, soft. ABSENT: ascites, distended, guarding Rectal exam: PRESENT: deferred Gentrourinary exam: ABSENT: indwelling catheter Extremities exam: PRESENT: pedal edema, other - left upper arm with HD fistula with puncture wounds from HD today Musculoskeletal exam: PRESENT: normal inspection. ABSENT: deformity Neurological exam: PRESENT: awake, oriented to person, CN II-XII grossly intact, other - strength 5/5 bilat. ABSENT: oriented to place, oriented to situation Psychiatric exam: PRESENT: unusual affect. ABSENT: agitated Skin exam: PRESENT: dry, intact, warm. ABSENT: skin tears Results Laboratory Results: 12/09/18 19:52 12/09/18 19:52 12/09/18 12/09/18 12/09/18 19:52 19:52 19:52 WBC 6.9 RBC 3.23 L Hgb 10.7 L Hct 31.7 L MCV 98 H MCH 33.1 MCHC 33.6 RDW 16.3 H Plt Count 256 Seg Neutrophils % 80.5 H Lymphocytes % 10.3 L Monocytes % 7.6 Eosinophils % 1.2 Basophils % 0.4 Absolute Neutrophils 5.6 Absolute Lymphocytes 0.7 Absolute Monocytes 0.5 Absolute Eosinophils 0.1 Absolute Basophils 0.0 VBG pH VBG pCO2 VBG HCO3 VBG Base Excess Sodium 139.2 Potassium 3.5 L Chloride 99 Carbon Dioxide 30 Anion Gap 10 BUN 23 H Creatinine 3.75 H Est GFR ( Amer) 19 L Est GFR (Non-Af Amer) 16 L Glucose 193 H Lactic Acid 1.7 Calcium 8.7 Total Bilirubin 0.7 AST 11 L ALT 16 L Alkaline Phosphatase 103 Total Protein 6.6 Albumin 3.4 L Fluid Tube Number CSF Volume CSF Appearance CSF Color CSF WBC CSF RBC CSF Glucose CSF Total Protein 12/09/18 12/09/18 12/09/18 19:52 23:40 23:40 WBC RBC Hgb Hct MCV MCH MCHC RDW Plt Count Seg Neutrophils % Lymphocytes % Monocytes % Eosinophils % Basophils % Absolute Neutrophils Absolute Lymphocytes Absolute Monocytes Absolute Eosinophils Absolute Basophils VBG pH 7.44 H VBG pCO2 43.4 VBG HCO3 28.9 VBG Base Excess 4.3 Sodium Potassium Chloride Carbon Dioxide Anion Gap BUN Creatinine Est GFR ( Amer) Est GFR (Non-Af Amer) Glucose Lactic Acid Calcium Total Bilirubin AST ALT Alkaline Phosphatase Total Protein Albumin Fluid Tube Number 1 CSF Volume 5.5 CSF Appearance CLEAR CSF Color COLORLESS CSF WBC 5 CSF RBC 3 CSF Glucose 96 H CSF Total Protein 71 H 12/09/18 23:40 WBC RBC Hgb Hct MCV MCH MCHC RDW Plt Count Seg Neutrophils % Lymphocytes % Monocytes % Eosinophils % Basophils % Absolute Neutrophils Absolute Lymphocytes Absolute Monocytes Absolute Eosinophils Absolute Basophils VBG pH VBG pCO2 VBG HCO3 VBG Base Excess Sodium Potassium Chloride Carbon Dioxide Anion Gap BUN Creatinine Est GFR ( Amer) Est GFR (Non-Af Amer) Glucose Lactic Acid Calcium Total Bilirubin AST ALT Alkaline Phosphatase Total Protein Albumin Fluid Tube Number 4 CSF Volume 5.5 CSF Appearance CLEAR CSF Color COLORLESS CSF WBC 3 CSF RBC 0 CSF Glucose CSF Total Protein Impressions: Chest X-Ray 12/09/18 20:58 IMPRESSION: 1. No acute pulmonary findings. Head CT 12/10/18 01:10 IMPRESSION: No acute findings. Assessment and Plan - Diagnosis (1) Altered mental status Qualifiers: Altered mental status type: disorientation Qualified Code(s): R41.0 - Disorientation, unspecified Is this a current diagnosis for this admission?: Yes Plan: pt seems to have an acute metabolic encephalopathy, probably related to occult infection. He became acutely ill after HD today. Makes no urine. CT head neg for acute. Blood cultures drawn. LP done and results pending. No obvious skin infiection. No port or cardiac device in place per spouse. He does have hardware in low back. Firse dose cefepime and vanc given in ED trhen pharmacy will need to dose given HD patient. He does have a history of what sounds like a MRSA skin infection. May need ID consult if no source found. Flu neg, TSH and B12 ordered. Labs not too concerning. WBC count normal. (2) Fever Qualifiers: Fever type: unspecified Qualified Code(s): R50.9 - Fever, unspecified Is this a current diagnosis for this admission?: Yes Plan: He became acutely ill after HD today. Makes no urine. CT head neg for acute. Blood cultures drawn. LP done and results pending. No obvious skin infiection. No port or cardiac device in place per spouse. He does have hardware in low back. Firse dose cefepime and vanc given in ED then pharmacy will need to dose given he is a HD patient. He does have a history of what sounds like a MRSA skin infection. May need ID consult if no source found. Flu neg, TSH and B12 ordered. Labs not too concerning otherwise and WBC count normal. (3) Acute on chronic diastolic (congestive) heart failure Is this a current diagnosis for this admission?: Yes Plan: will restart home meds when med rec done, spouse could not give me the med details, does not appear to be in an exacerbation now (4) Diabetes mellitus with kidney complication Qualifiers: Diabetes mellitus type: type 2 Diabetes mellitus oil heaterman insulin use: with usp use Diabetes mellitus complication detail: with chronic kidney disease Is this a current diagnosis for this admission?: Yes Plan: Diabetic diet, shortacting bolus insulin ordered until we have more medication data (5) ESRF (end stage renal failure) Is this a current diagnosis for this admission?: Yes Plan: HD MWF, nephrology consult ordered, does not seem volume overloaded today, K a little low but will not replace and rechk in the am (6) History of bladder cancer Is this a current diagnosis for this admission?: Yes Plan: has had several bladder CA surgeries, could not recall details, he is scheduled to see his urologist on Wednesday for cystoscopy given his increasingly frequent and worsening bladder pain - Time Time Spent with patient: 35 or more minutes - Inpatient Certification Based on my medical assessment, after consideration of the patient's comorbidities, presenting symptoms, or acuity I expect that the services needed warrant INPATIENT care.: Yes I certify that my determination is in accordance with my understanding of Medicare's requirements for reasonable and necessary INPATIENT services [42 CFR 412.3e].: Yes Medical Necessity: Significant Comorbidiites Make Outpatient Treatment Too Risky, Need Close Monitoring Due to Risk of Patient Decompensation, Need for IV Antibiotics, Risk of Complication if Not Cared For in Hospital
--- NOTE | 2018-12-10 06:54 | EKG REPORT ---
SEVERITY:- ABNORMAL ECG - ATRIAL FLUTTER/FIBRILLATION, A-RATE 250 INCOMPLETE RIGHT BUNDLE BRANCH BLOCK : Confirmed by: Emanuel Alejandro MD 10-Dec-2018 06:53:56
[2018-12-10] MEDS: INSULIN LISPRO 100 UNIT/ML 3 ML VIAL SUBCUT SCH ×5 (08:41→21:49)
[2018-12-10] MEDS ORDERED: FLUTICASONE NASAL SPRAY 50 MCG/SPRY 120 SPRAY/16 GM NASL PRN (13:05)
[2018-12-10] MEDS ORDERED: VANCOMYCIN HCL 0 MG in DEXTROSE 5%-WATER 250 ML IV NR (13:15)
[2018-12-10 13:16] LABS: ANION GAP 11 (5-19); BLOOD UREA NITROGEN 34 mg/dL (7-20); CALCIUM 8.4 mg/dL (8.4-10.2); CARBON DIOXIDE 29 mmol/L (22-30); CHLORIDE 98 mmol/L (98-107); GLUCOSE 144 mg/dL (75-110); POTASSIUM 3.7 mmol/L (3.6-5.0); SODIUM 137.8 mmol/L (137-145)
--- NOTE | 2018-12-10 14:49 | PROGRESS NOTE E ---
Progress Note NAME: BERNADETTE BURGOS : 1945 AGE: 73Y DATE: 12/10/2018 ROOM: ED02 SUBJECTIVE: The patient is currently sitting up in the bed. The patient states that he feels much better now then when he came to the emergency department. The patient denies any nausea, vomiting, diarrhea. No shortness of breath, dizziness, or chest pain. The patient has had reoccurrence of temp, but overall feels better. Blood pressures have been in a good range and the patient did not voice any other concerns at this time REVIEW OF SYSTEMS: The rest of the review of systems negative. MEDICATIONS: Have been reviewed. OBJECTIVE: GENERAL: The patient is a 73-year-old male who is awake, alert, and oriented to person, time, place, situation. He is verbal, conversational. Does not appear to be in any acute distress. VITAL SIGNS: Temperature is 99.5, pulse 90, respirations 25, blood pressure is 155/63, oxygen saturation is 97% on room air. SKIN: Warm and dry. No rash. He is not diaphoretic. HEENT: Pupils equal, round and reactive to light and accommodation. Conjunctivae are pink. No evidence of JVP. CARDIOVASCULAR: Heart is regular. No rub. CHEST: Diminished, symmetrical, unlabored. ABDOMEN: Obese, soft, nontender. EXTREMITIES: No clubbing, cyanosis, or edema. PSYCHIATRIC: Appropriate affect, pleasant mood. DIAGNOSTICS: Lab values are as follows - hematology obtained on 12/09/2018; WBC is 6.9, hemoglobin is 10.7, hematocrit is 31.7, platelet count is 256,000. Chemistry obtained on 12/09/2018; sodium is 139, potassium 4.5, chloride is 99, carbon dioxide 30, BUN 23, creatinine is 3.75, calcium is 8.7, bilirubin is 0.7, AST 11, ALT 16, alk-phos 103, total protein is 6.6, albumin 3.4. IMPRESSION AND PLAN: 1. FEVER OF UNCERTAIN ETIOLOGY. The patient was encephalopathic with this as well. Will continue broad spectrum antibiotic coverage and await for cultures and sensitivities. 2. METABOLIC ENCEPHALOPATHY. As per the above. 3. CHRONIC DIASTOLIC CONGESTIVE HEART FAILURE. The patient appears to be euvolemic. Will continue his home medications. 4. DIABETES MELLITUS TYPE 2. Will continue the patient's sliding scale coverage as well as home insulin. 5. END-STAGE RENAL DISEASE. The patient hemodialyses on Wednesday, Wednesday, Wednesday. Do appreciate nephrology's input on this. 6. HISTORY OF BLADDER CANCER. The patient has had several surgeries. He is supposed to see his urologist on Wednesday with cystoscopy. CODE STATUS: The patient is a full code. DISPOSITION: Depending on the patient's symptomatology and diagnostic findings will reevaluate in the a.m. TIME SPENT: On this follow up, including assessment and plan, physical examination, patient education, review of records is 25 minutes. DICTATING PHYSICIAN: GORDO ADLER NP [id number] PHY#: [id number] ID: [id number] JOB#: [id number] ACCT: [id number] cc: >
[2018-12-10] MEDS: ASPIRIN 81 MG TABLET, ENT COATED PO SCH (15:54)
--- NOTE | 2018-12-10 16:04 | EKG REPORT ---
SEVERITY:- ABNORMAL ECG - SINUS OR ECTOPIC ATRIAL RHYTHM FIRST DEGREE AV BLOCK INCOMPLETE RIGHT BUNDLE BRANCH BLOCK PROBABLE ANTEROSEPTAL INFARCT, AGE INDETERM : Confirmed by: Emanuel Alejandro MD 10-Dec-2018 16:03:23
[2018-12-10] MEDS ORDERED: VANCOMYCIN HCL 1,500 MG in DEXTROSE 5%-WATER 250 ML IV SCH (18:00)
[2018-12-10] MEDS ORDERED: CEFEPIME 1 GM/D5W RTU 1 GM/50 ML RTUPB IV SCH (18:00)
[2018-12-10] MEDS ORDERED: MONTELUKAST SODIUM 10 MG TABLET PO ONE (19:30)
[2018-12-10] MEDS ORDERED: TICAGRELOR 90 MG TABLET ONE (21:36)
[2018-12-10] MEDS: TICAGRELOR 90 MG TABLET PO SCH (21:49)
[2018-12-10] MEDS: ATORVASTATIN CALCIUM 40 MG TABLET PO SCH (21:49)
[2018-12-10] MEDS: MONTELUKAST SODIUM 10 MG TABLET PO SCH (21:49)
[2018-12-10] MEDS: CARVEDILOL 12.5 MG TABLET PO SCH (21:49)
[2018-12-11 05:00] LABS: ABSOLUTE MONOCYTES (AUTO) 0.7 10^3/uL (0.1-1.4); EOSINOPHILS % (AUTO) 0.2 % (0-6); HEMOGLOBIN 10.6 g/dL (13.5-17.0); TOTAL CELLS COUNTED % (AUTO) 100 %
[2018-12-11 05:14] LABS: ABSOLUTE LYMPHOCYTES (AUTO) 1.1 10^3/uL (0.5-4.7); ABSOLUTE NEUT (AUTO) 3.2 10^3/uL (1.7-8.2); BASOPHILS % (AUTO) 0.7 % (0-2); HEMATOCRIT 31.5 % (37.9-51.0); LYMPHOCYTES % (AUTO) 21.5 % (13-45); MEAN CORPUSCULAR HGB CONC 33.6 g/dL (32.0-36.0); MEAN CORPUSCULAR VOLUME 98 fl (80-97); MONOCYTES % (AUTO) 14.4 % (3-13); PLATELET COUNT 228 10^3/uL (150-450); RED BLOOD COUNT 3.21 10^6/uL (4.35-5.55); RED CELL DISTRIBUTION WIDTH 16.3 % (11.5-14.0); SEGMENTED NEUTROPHILS % (AUTO) 63.2 % (42-78)
[2018-12-11 05:25] LABS: ALANINE AMINOTRANSFERASE 20 U/L (21-72); ALBUMIN 3.1 g/dL (3.5-5.0); ALKALINE PHOSPHATASE 84 U/L (38-126); ANION GAP 13 (5-19); ASPARTATE AMINO TRANSFERASE 18 U/L (17-59); BILIRUBIN,DIRECT 0.4 mg/dL (0.0-0.4); BILIRUBIN,TOTAL 0.6 mg/dL (0.2-1.3); BLOOD UREA NITROGEN 42 mg/dL (7-20); CALCIUM 8.8 mg/dL (8.4-10.2); CARBON DIOXIDE 27 mmol/L (22-30); CHLORIDE 99 mmol/L (98-107); GLUCOSE 100 mg/dL (75-110); POTASSIUM 3.7 mmol/L (3.6-5.0); SODIUM 138.5 mmol/L (137-145); TOTAL PROTEIN 6.4 g/dL (6.3-8.2)
[2018-12-11] MEDS: PANTOPRAZOLE SODIUM 40 MG TABLET.DR PO SCH (05:39)
[2018-12-11] MEDS: INSULIN LISPRO 100 UNIT/ML 3 ML VIAL SUBCUT SCH ×7 (07:29→21:57)
[2018-12-11] MEDS: CARVEDILOL 12.5 MG TABLET PO SCH ×2 (09:36→21:56)
[2018-12-11] MEDS: ASPIRIN 81 MG TABLET, ENT COATED PO SCH (09:36)
[2018-12-11] MEDS: TICAGRELOR 90 MG TABLET PO SCH ×2 (10:53→21:56)
[2018-12-11] MEDS ORDERED: TICAGRELOR 90 MG TABLET PO SCH ×2 (12:00→22:00)
--- NOTE | 2018-12-11 12:44 | PROGRESS NOTE E ---
Progress Note NAME: BERNADETTE BURGOS : 1945 AGE: 73Y DATE: 12/11/2018 ROOM: 326 SUBJECTIVE: The patient is lying in bed. He states he feels very weak. Was able to discuss with his today. Appears the patient has been having difficulties with UTIs on an outpatient basis, although he does not make urine because of his hemodialysis. The patient has had numerous procedures, due to his previous bladder cancer and is scheduled to have an upcoming procedure. The patient's relates his symptoms are similar to that of a urinary tract infection for him. There have been no reported episodes of vomiting nor diarrhea and the patient does not voice any other concerns at this time. REVIEW OF SYSTEMS: The rest of the review of systems is negative. MEDICATIONS: Reviewed. OBJECTIVE: GENERAL: The patient is a 73-year-old male, who is awake, alert. He is oriented to person, place, time and situation. He is verbal and conversational. Does not appear to be in acute distress. VITAL SIGNS: Temperature is 99.5, pulse 90, respirations 22, blood pressure is 158/44, oxygen saturation 95% on 1 liter nasal cannula. SKIN: Warm and dry. No rash. Not diaphoretic. HEENT: Pupils equal, round, reactive to light and accommodation. Conjunctivae pink. There is no evidence of JVP. CVS: Heart is regular. No murmurs or rubs. CHEST: Clear, symmetrical, unlabored. ABDOMEN: Soft, nontender, nondistended. BACK: No CVA tenderness or sacral edema. EXTREMITIES: No clubbing, cyanosis or edema. PSYCHIATRIC: Appropriate affect, pleasant mood. DIAGNOSTICS: Lab values are as follows: Hematology obtained on 12/11/2018: WBCs are 5.0, hemoglobin is 10.6, hematocrit 31.5, platelet count is 228,000. Chemistry obtained on 12/11/2018: Sodium is 138, potassium is 3.7, chloride is 99, carbon dioxide is 27, BUN 42, creatinine 6.72, glucose is 100, calcium is 8.8. IMPRESSION AND PLAN: 1. FEVER OF UNCERTAIN ETIOLOGY, HIGH SUSPICION OF URINARY SOURCE. The patient was encephalopathic, but this is much improved with broad spectrum antibiotic coverage. The patient is to follow up with Urology for an outpatient procedure coming up soon. 2. METABOLIC ENCEPHALOPATHY, PER THE ABOVE. 3. CHRONIC DIASTOLIC CONGESTIVE HEART FAILURE. The patient appears to be euvolemic at this point. 4. DIABETES MELLITUS TYPE 2. Continue sliding scale coverage as well as home insulin. 5. END-STAGE RENAL DISEASE. The patient is on hemodialysis on Wednesday, Wednesday, Wednesday. Do appreciate Nephrology's input with this. 6. HISTORY OF BLADDER CANCER. The patient has had several surgeries as well as cystos, and he does have an appointment with his urologist on Wednesday. DISPOSITION: The patient is a FULL CODE. Pending patient symptomatology and diagnostic findings, we will reevaluate in the a.m. Time spent on this followup, including assessment, plan, physical examination, patient education and review of records, is 25 minutes. DICTATING PHYSICIAN: GORDO ADLER NP [id number] PHY#: [id number] ID: [id number] JOB#: [id number] ACCT: [id number] cc: >
[2018-12-11] MEDS ORDERED: LORAZEPAM 1 MG TABLET ONE (17:50)
[2018-12-11] MEDS ORDERED: CEFEPIME HCL 0.5 GM in NORMAL SALINE 25 ML IV SCH (18:00)
[2018-12-11] MEDS ORDERED: CEFEPIME HCL 0.5 GM in DEXTROSE 5%-WATER 25 ML IV SCH (18:00)
[2018-12-11] MEDS ORDERED: MORPHINE SULFATE 10 MG/ML INJ IV PRN (20:00)
[2018-12-11] MEDS ORDERED: MORPHINE SULFATE 10 MG/ML INJ ONE (20:00)
[2018-12-11] MEDS ORDERED: FUROSEMIDE INJ/PF 40 MG/4 ML SDV ONE (20:00)
[2018-12-11] MEDS ORDERED: FUROSEMIDE INJ/PF 40 MG/4 ML SDV IV ONE (20:10)
[2018-12-11] MEDS ORDERED: ALBUTEROL SULFATE 0.083% NEB 2.5 MG/3 ML AMPUL NEB ONE (20:39)
[2018-12-11 20:48] LABS: ARTERIAL BLOOD BASE EXCESS 3.7 mmol/L; ARTERIAL BLOOD H2CO3 0.96 mmol/L (1.05-1.35); ARTERIAL BLOOD HCO3 26.1 mmol/L (20-24); ARTERIAL BLOOD O2 SATURATION 95.6 % (94-98); ARTERIAL BLOOD PH 7.53 (7.35-7.45); ARTERIAL BLOOD PO2 68.7 mmHg (80-100); ARTERIAL BLOOD TOTAL CO2 27.1 mmol/L (23-27)
[2018-12-11] MEDS ORDERED: LORAZEPAM INJ 2 MG/1 ML VIAL ONE (20:56)
[2018-12-11] MEDS ORDERED: ONDANSETRON HCL INJ/PF 4 MG/2 ML SDV ONE (21:04)
[2018-12-11 21:14] LABS: ABSOLUTE LYMPHOCYTES (AUTO) 1.2 10^3/uL (0.5-4.7); ABSOLUTE MONOCYTES (AUTO) 0.7 10^3/uL (0.1-1.4); ABSOLUTE NEUT (AUTO) 4.2 10^3/uL (1.7-8.2); BASOPHILS % (AUTO) 0.6 % (0-2); EOSINOPHILS % (AUTO) 0.5 % (0-6); HEMATOCRIT 35.3 % (37.9-51.0); HEMOGLOBIN 11.7 g/dL (13.5-17.0); MEAN CORPUSCULAR HEMOGLOBIN 32.4 pg (27.0-33.4); MEAN CORPUSCULAR HGB CONC 33.1 g/dL (32.0-36.0); MEAN CORPUSCULAR VOLUME 98 fl (80-97); MONOCYTES % (AUTO) 11.3 % (3-13); PLATELET COUNT 249 10^3/uL (150-450); RED BLOOD COUNT 3.61 10^6/uL (4.35-5.55); RED CELL DISTRIBUTION WIDTH 16.3 % (11.5-14.0); SEGMENTED NEUTROPHILS % (AUTO) 68.6 % (42-78); TOTAL CELLS COUNTED % (AUTO) 100 %; WHITE BLOOD COUNT 6.2 10^3/uL (4.0-10.5)
[2018-12-11] MEDS: ACETAMINOPHEN 325 MG TABLET PO PRN (21:14)
[2018-12-11] MEDS ORDERED: LORAZEPAM INJ 2 MG/1 ML VIAL IV PRN ×2 (21:23→21:24)
[2018-12-11] MEDS ORDERED: ONDANSETRON HCL INJ/PF 4 MG/2 ML SDV IV PRN (21:24)
[2018-12-11 21:32] LABS: ALANINE AMINOTRANSFERASE 22 U/L (21-72); ALBUMIN 3.6 g/dL (3.5-5.0); ALKALINE PHOSPHATASE 91 U/L (38-126); ANION GAP 16 (5-19); ASPARTATE AMINO TRANSFERASE 27 U/L (17-59); BILIRUBIN,DIRECT 0.6 mg/dL (0.0-0.4); BILIRUBIN,TOTAL 0.8 mg/dL (0.2-1.3); BLOOD UREA NITROGEN 54 mg/dL (7-20); CALCIUM 8.6 mg/dL (8.4-10.2); CARBON DIOXIDE 24 mmol/L (22-30); CHLORIDE 97 mmol/L (98-107); CREATINE KINASE 154 U/L (55-170); GLUCOSE 167 mg/dL (75-110); POTASSIUM 4.4 mmol/L (3.6-5.0); SODIUM 137.4 mmol/L (137-145); TOTAL PROTEIN 7.1 g/dL (6.3-8.2)
[2018-12-11 21:44] LABS: CREATINE KINASE MB 0.85 ng/mL (<4.55); TROPONIN I 0.068 ng/mL
[2018-12-11] MEDS: ATORVASTATIN CALCIUM 40 MG TABLET PO SCH (21:55)
[2018-12-11] MEDS: MONTELUKAST SODIUM 10 MG TABLET PO SCH (21:56)
--- NOTE | 2018-12-11 22:27 | Progress Note ---
Provider Note Provider Note: The patient was seen and examined for respiratory distress and jitteriness with restlessness with tachypnea to 38 with a blood pressure 144/62 and a heart rate of 82. He was given 1 mg of IV Ativan earlier. His pulse oximetry was adequate on 1 L and 1 raised to 3 L was up to 96%. He has a history of seizures per his . He is due for hemodialysis tomorrow. He was initially thought to be congested and was given 40 mg of IV Lasix, 1 mg of IV morphine sulfate and DuoNeb with minimal improvement. A stat ABG revealed pH of 7.53 with PCO2 of 32, PO2 of 68 and HCO3 of 26 with O2 sat of 95.6% on 1 L O2 earlier. His EKG showed normal sinus rhythm with first-degree AV block and a rate of 95 with T wave inversion in V1 and V2. Patient was arousable during my exam and answering most of questions. He denies any chest pain or palpitations. He had vomited clear vomitus with cough. No worsening respiratory distress and no suspected aspiration. Lungs exam revealed diminished bibasilar breath sounds and cardiovascular revealed regular rate rhythm with normal S1-S2 no murmurs gallops or rubs. Abdomen was soft with positive bowel sounds and no -[employer] extremities with no edema clubbing or cyanosis. I ordered a stat portable chest x-ray is currently pending. The patient was given another 0.5 mg of IV Ativan after ABG results as it was thought to be hyperventilating. He later felt significantly better and was sleeping comfortably with significant improvement of his tachypnea. We will continue to monitor him closely.
--- NOTE | 2018-12-11 23:33 | RADIOLOGY REPORT (SQ) ---
EXAM DESCRIPTION: [facility]: XR CHEST 1 VIEW CLINICAL HISTORY: 73 years Male, RESPIRATORY CHANGES FINDINGS: Since 12/09/2018, lungs are unchanged. There is no focal acute infiltrate. 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 Left subclavian stents are again noted. Mediastinum is unchanged. IMPRESSION: No acute pulmonary findings.
[2018-12-12] MEDS ORDERED: IPRATROPIUM/ALBUTEROL 0.5-2.5 MG/3 ML AMPUL NEB PRN (00:50)
[2018-12-12 03:19] LABS: HEMATOCRIT 31.2 % (37.9-51.0); HEMOGLOBIN 10.6 g/dL (13.5-17.0); MEAN CORPUSCULAR VOLUME 97 fl (80-97); PLATELET COUNT 233 10^3/uL (150-450); RED BLOOD COUNT 3.22 10^6/uL (4.35-5.55); RED CELL DISTRIBUTION WIDTH 16.1 % (11.5-14.0); WHITE BLOOD COUNT 5.5 10^3/uL (4.0-10.5)
[2018-12-12 03:40] LABS: ANION GAP 14 (5-19); BLOOD UREA NITROGEN 59 mg/dL (7-20); CALCIUM 8.5 mg/dL (8.4-10.2); CARBON DIOXIDE 27 mmol/L (22-30); CHLORIDE 100 mmol/L (98-107); GLUCOSE 102 mg/dL (75-110); POTASSIUM 4.1 mmol/L (3.6-5.0); SODIUM 140.5 mmol/L (137-145)
[2018-12-12 03:52] LABS: CREATINE KINASE MB 0.73 ng/mL (<4.55); TROPONIN I 0.103 ng/mL
[2018-12-12] MEDS: PANTOPRAZOLE SODIUM 40 MG TABLET.DR PO SCH (05:20)
[2018-12-12] MEDS: ALBUTEROL SULFATE HFA (90 MCG/PUFF) 200 PUFF/8.5 GM MDI IH PRN (06:37)
--- NOTE | 2018-12-12 06:41 | EKG REPORT ---
SEVERITY:- ABNORMAL ECG - SINUS OR ECTOPIC ATRIAL RHYTHM FIRST DEGREE AV BLOCK IVCD RBBB : Confirmed by: Emanuel Alejandro MD 12-Dec-2018 06:41:18
[2018-12-12] MEDS: ACETAMINOPHEN 325 MG TABLET PO PRN (07:26)
[2018-12-12] MEDS: INSULIN LISPRO 100 UNIT/ML 3 ML VIAL SUBCUT SCH ×7 (07:52→22:09)
[2018-12-12] MEDS ORDERED: ACETAMINOPHEN 650 MG SUPP.RECT PR ONE (12:00)
[2018-12-12] MEDS ORDERED: METRONIDAZOLE 500 MG/NS RTU 500 MG/100 ML RTUPB IV SCH ×2 (12:00→14:00)
[2018-12-12] MEDS ORDERED: TRAMADOL HCL 50 MG TABLET PO ONE (12:00)
--- NOTE | 2018-12-12 12:00 | PDOC CONSULTATION ---
Consultation Consult Date: 12/12/18 Consult reason:: ESRD for dialysis. History of Present Illness Admission Date/PCP: 12/10/18 01:32 Camron JOHNSON MD History of Present Illness: BERNADETTE BURGOS is a 73 year old male with a history of ESRD in the background of diabetes, CHF, CAD status post PTCA, bladder cancer was admitted on Wednesday with a history of feeling unwell after HD on Wednesday. I am currently seeing him today while undergoing dialysis. He is awake and alert and oriented x2. He has some difficulty in remembering my name and place. Therefore besides talking to him the chart was reviewed. Discussions were also done with the treating dialysis nurse. Apparently he was so weak and very tired that couldnt get out of the car, as per his who states that he is usually fine after HD. Shortly thereafter he developed a fever of 101.7 and his called EMS. In the ER he was found to be confused and febrile. After appropriate ch cultures were drawn except for urine as he is anuric he was admitted and begun on antibiotics. CT of the brain was negative. He went on to have an LP done which was uneventful but was negative for any infection. He denies any history of headaches or seizures. He denies any history of coughing spells and no history of any fever or chills. No history of diarrhea. No history of an abdominal pains. No history of any skin lesions in the moment. Labs and medications were reviewed. Currently he is undergoing dialysis without any issues. Past Medical History Cardiac Medical History: Reports: Coronary Artery Disease, Hyperlipidemia, Hypertension-primary Denies: DVT, Myocardial Infarction, Pulmonary Embolism Pulmonary Medical History: Reports: Sleep Apnea - He is intolerant to wearing CPAP. Denies: Asthma, Chronic Obstructive Pulmonary Disease (COPD) EENT Medical History: Reports: Other - none reported Neurological Medical History: Reports: Seizures - X 3 > 20 yrs ago; no Rx Denies: Migraine Endocrine Medical History: Reports: Diabetes Mellitus Type 2, Obesity Denies: Hyperthyroidism, Hypothyroidism Renal/ Medical History: Reports: End Stage Renal Disease, Secondary Hyperparathyroidism Malignancy Medical History: Reports: Lymphoma, Skin Cancer, Other - bladder cancer GI Medical History: Reports: Gastroesophageal Reflux Disease Denies: Cirrhosis, Hepatitis Musculoskeltal Medical History: Reports: Arthritis Skin Medical History: Denies: Eczema, Psoriasis Psychiatric Medical History: Reports: Depression, Post Traumatic Stress Disorder, Other - claustrophobia Denies: Substance Abuse, Tobacco Dependency Infectious Medical History: Reports: Methicillin-resist Staph Aureus Hematology Medical History: Reports Anemia of Chronic Kidney Disease Past Surgical History Past Surgical History: Reports: Cardiac Catheterization, Coronary Stent, Orthopedic Surgery - He has had C-spine surgery, and low back surgery., Vascular Surgery - left upper arm dialysis fistula, Other - Excision of skin cancers,Total prostatectomy,Bladder surgery 3,Lipoma surg Social History Lives with: Spouse/Significant other Smoking Status: Never Smoker Last Time Smoked: 10 years ago Frequency of Alcohol Use: None Hx Recreational Drug Use: No Drugs: None Hx Prescription Drug Abuse: No - Advance Directive Resuscitation Status: Full Code Family History Parental Family History Reviewed: Yes - Negative for ESRD Children Family History Reviewed: No Sibling(s) Family History Reviewed.: No Medication/Allergy Home Medications: Amlodipine Besylate [Norvasc 10 mg Tablet] 5 mg PO DAILYP PRN 12/10/18 Aspirin [Adult Low Dose Aspirin EC] 81 mg PO DAILY 12/10/18 Atorvastatin Calcium [Lipitor 40 mg Tablet] 40 mg PO QHS 12/10/18 Azelastine HCl 1 spray NASL BIDP PRN 12/10/18 Carvedilol [Coreg 25 mg Tablet] 25 mg PO BID 12/10/18 Cholecalciferol (Vitamin D3) [Vitamin D3 1000 Unit Tablet] 1,000 unit PO DAILY 12/10/18 Ergocalciferol (Vitamin D2) [Drisdol 50,000 unit (1.25MG) Capsule] 5,000 unit PO Q28D 12/10/18 Fluticasone Propionate [Flonase Nasal [place] 50 Mcg/[place] 16 gm] 2 spray NASL DAILYP PRN 12/10/18 Insulin Lispro [Humalog Insulin (Lispro) 100 unit/mL] 5 units SQ MEALS 12/10/18 Iron Aspgly,Ps/C/Succinic Acid [Ferrex 150 Plus Capsule] 1 cap PO DAILY 12/10/18 Pantoprazole Sodium [Protonix [address] Tablet] 40 mg PO Q6AM 12/10/18 Ticagrelor [Brilinta 90 mg Tablet] 90 mg PO 12 12/10/18 Tramadol HCl [Ultram 50 mg Tablet] 50 mg PO Q8HP PRN 12/10/18 Allergies/Adverse Reactions: Iodinated Contrast- Oral and IV Dye Allergy (Verified 02/26/18 19:34) iodine Allergy (Verified 02/26/18 19:34) Penicillins Allergy (Verified 02/26/18 19:34) Review of Systems Constitutional: PRESENT: as per HPI, fatigue, weakness. ABSENT: fever(s), h eadache(s), night sweats Eyes: ABSENT: visual disturbances Ears: ABSENT: hearing changes Nose, Mouth, and Throat: ABSENT: headache(s), mouth pain, sore throat Cardiovascular: ABSENT: chest pain, dyspnea on exertion, edema, orthropnea, palpitations Respiratory: PRESENT: dyspnea. ABSENT: cough, hemoptysis Gastrointestinal: ABSENT: abdominal pain, diarrhea, dysphagia, heartburn, hematemesis, nausea, vomiting Integumentary: ABSENT: erythema, lesions, pruritus, rash Neurological: PRESENT: confusion. ABSENT: abnormal speech, convulsions, focal weakness, frequent falls Psychiatric: ABSENT: hallucinations, homidical ideation, suicidal ideation Hematologic/Lymphatic: ABSENT: easy bleeding, easy bruising, lymphadenopathy Physical Exam Vital Signs: Temp Pulse Resp BP Pulse Ox 102 F H 86 28 H 107/86 H 100 12/12/18 07:20 12/12/18 07:20 12/12/18 07:20 12/12/18 07:20 12/12/18 07:20 Intake & Output 12/11/18 12/12/18 12/13/18 06:59 06:59 06:59 Intake Total 700 405 Balance 700 405 Weight 118 kg 115.9 kg General appearance: PRESENT: no acute distress, obese Eye exam: PRESENT: EOMI, PERRLA Ear exam: PRESENT: normal external ear exam Mouth exam: PRESENT: neck supple. ABSENT: moist Neck exam: ABSENT: lymphadenopathy, meningismus, tenderness, thyromegaly, tracheal deviation Respiratory exam: PRESENT: clear to auscultation marisol, decreased breath sounds, symmetrical. ABSENT: chest wall tenderness, crackles Cardiovascular exam: PRESENT: +S1, +S2 GI/Abdominal exam: PRESENT: normal bowel sounds, soft. ABSENT: organomegaly, tenderness Extremities exam: ABSENT: pedal edema Neurological exam: PRESENT: alert, awake, oriented to person, oriented to situation. ABSENT: oriented to place, oriented to time Psychiatric exam: PRESENT: flat affect Skin exam: ABSENT: cyanosis, erythema, mottled, pallor, rash Results Laboratory Results: 12/12/18 03:09 12/12/18 03:09 12/11/18 12/11/18 12/11/18 20:18 20:18 20:35 WBC 6.2 RBC 3.61 L Hgb 11.7 L Hct 35.3 L MCV 98 H MCH 32.4 MCHC 33.1 RDW 16.3 H Plt Count 249 Seg Neutrophils % 68.6 Lymphocytes % 19.0 Monocytes % 11.3 Eosinophils % 0.5 Basophils % 0.6 Absolute Neutrophils 4.2 Absolute Lymphocytes 1.2 Absolute Monocytes 0.7 Absolute Eosinophils 0.0 Absolute Basophils 0.0 Carbonic Acid 0.96 L HCO3/H2CO3 Ratio 27:1 ABG pH 7.53 H ABG pCO2 32.0 L ABG pO2 68.7 L ABG HCO3 26.1 H ABG O2 Saturation 95.6 ABG Base Excess 3.7 FiO2 1.00 Sodium 137.4 Potassium 4.4 Chloride 97 L Carbon Dioxide 24 Anion Gap 16 BUN 54 H Creatinine 7.17 H Est GFR ( Amer) 9 L Est GFR (Non-Af Amer) 8 L Glucose 167 H Calcium 8.6 Magnesium Total Bilirubin 0.8 AST 27 ALT 22 Alkaline Phosphatase 91 Total Protein 7.1 Albumin 3.6 12/12/18 12/12/18 03:09 03:09 WBC 5.5 RBC 3.22 L Hgb 10.6 L Hct 31.2 L MCV 97 MCH 33.0 MCHC 34.0 RDW 16.1 H Plt Count 233 Seg Neutrophils % Lymphocytes % Monocytes % Eosinophils % Basophils % Absolute Neutrophils Absolute Lymphocytes Absolute Monocytes Absolute Eosinophils Absolute Basophils Carbonic Acid HCO3/H2CO3 Ratio ABG pH ABG pCO2 ABG pO2 ABG HCO3 ABG O2 Saturation ABG Base Excess FiO2 Sodium 140.5 Potassium 4.1 Chloride 100 Carbon Dioxide 27 Anion Gap 14 BUN 59 H Creatinine 8.28 H Est GFR ( Amer) 8 L Est GFR (Non-Af Amer) 6 L Glucose 102 Calcium 8.5 Magnesium 1.9 Total Bilirubin AST ALT Alkaline Phosphatase Total Protein Albumin 12/09/18 23:40 Cerebral Spinal Fluid - Csf Gram Stain - Final 12/10/18 12/11/18 12/11/18 08:47 20:18 21:08 Creatine Kinase 154 CK-MB (CK-2) 0.85 Troponin I 0.068 0.068 12/12/18 12/12/18 03:09 03:09 Creatine Kinase 124 CK-MB (CK-2) 0.73 Troponin I 0.103 Impressions: Head CT 12/10/18 01:10 IMPRESSION: No acute findings. Chest X-Ray 12/11/18 00:00 IMPRESSION: No acute pulmonary findings. Assessment & Plan - Diagnosis (1) ESRF (end stage renal failure) Is this a current diagnosis for this admission?: Yes Plan: Patient currently undergoing dialysis without any issues. Vital signs are stable. Dialysis is being supervised to ensure safe and smooth procedure. Dialysis orders were reviewed with the treating dialysis nurse. Plan to remove between 1 and 1.5 L as tolerated. Adjust erythropoietin for anemia. (2) Altered mental status Qualifiers: Altered mental status type: disorientation Qualified Code(s): R41.0 - Disorientation, unspecified Is this a current diagnosis for this admission?: Yes Plan: Apparently as per discussions with patient as well as with the nurses patient is generally better than when he had was admitted. However he still running intermittent fever and cultures so far negative. (3) Fever Qualifiers: Fever type: unspecified Qualified Code(s): R50.9 - Fever, unspecified Is this a current diagnosis for this admission?: Yes Plan: Intermittent fever without any history of apparent chills or rigors. (4) Generalized weakness Plan: Status quo. (5) Diabetes mellitus Qualifiers: Diabetes mellitus type: type 2 Diabetes mellitus die maker insulin use: with jail use Diabetes mellitus complication status: with kidney complications Diabetes mellitus complication detail: with chronic kidney disease Chronic kidney disease stage: stage 3 (moderate) Qualified Code(s): E11.22 - Type 2 diabetes mellitus with diabetic chronic kidney disease Plan: Advised on tight control. (6) History of bladder cancer Is this a current diagnosis for this admission?: Yes Plan: Status quo. Currently anuric.
[2018-12-12] MEDS: IPRATROPIUM/ALBUTEROL 0.5-2.5 MG/3 ML AMPUL NEB PRN ×2 (12:08→16:04)
[2018-12-12 12:21] LABS: CREATINE KINASE MB 0.74 ng/mL (<4.55)
--- NOTE | 2018-12-12 12:24 | PROGRESS NOTE E ---
Progress Note NAME: BERNADETTE BURGOS : 1945 AGE: 73Y DATE: 12/12/2018 ROOM: 326 SUBJECTIVE: The patient was seen while on dialysis. The patient seems quite tremulous, almost like rigors. The patient is awake and alert but does not appear to be as oriented as he was yesterday. The patient has had no reported episodes of vomiting nor diarrhea this morning. He has remained febrile since last night at about 2100. The patient had been afebrile prior to that since the . The patient appeared to have significant panic last night and Ativan dosage was changed. At this time the patient does not voice any concerns at this time. BRIEF HISTORY: The patient is a 73-year-old male with a past medical history of chronic kidney disease, previous bladder cancer, and has had multiple urological surgeries. The patient presented to the emergency department due to having a fever at home. The patient was admitted with cefepime and vancomycin, and the patient remained afebrile during the day of the and the ; however, in the evening of 12/11 at 2100 the patient respiked a fever. The patient has not been tachycardic during this time. He is continued on antibiotics. This morning, given that the patient had a respike in fever overnight, we will image his abdomen as there is no other obvious source as his cultures so far have been negative. Unable to get a urine given the patient's anuric state. Will also continue with antipyretics but schedule them for now to hope that there is no further breakthrough. Additionally, I am going to cover him with metronidazole to ensure there is no anaerobic process here as the patient is allergic to penicillins and follow this up. REVIEW OF SYSTEMS: The rest of the review of systems is negative. MEDICATIONS: Medications have been reviewed. OBJECTIVE: GENERAL: The patient is a 73-year-old male who is awake, alert. He is just a little delayed today. He does not appear to be distressed though. VITAL SIGNS: As follows: Last temperature was 100.4. Pulse 86, respirations 24, blood pressure is 107/86, oxygen saturation is 100% on 3 L nasal cannula. SKIN: Warm, dry. He is a little cool to the touch. He is not diaphoretic. HEENT: Pupils are reactive. Conjunctivae pink. There is no evidence of JVP. CARDIOVASCULAR: Heart is regular. No rub. CHEST: Clear, symmetrical, unlabored. ABDOMEN: Soft, nontender. EXTREMITIES: No clubbing, cyanosis, edema. PSYCHIATRIC: The patient is not quite at baseline. DIAGNOSTICS: Lab values are as follows. Hematology obtained on 12/12/2018: WBCs are 5.5, hemoglobin is 10.6, hematocrit is 31.2, platelet count is 233,000. Chemistry obtained on 12/12/2018: Sodium is 140, potassium 4.1, chloride 100, carbon dioxide 27, BUN 59, creatinine 8.28, glucose 102, calcium is 8.5, magnesium is 1.9. IMPRESSION AND PLAN: 1. FEVER OF UNCERTAIN ETIOLOGY. Do have a suspicion of possible urinary source. The patient was given coverage with cefepime and Zosyn, but will additionally add Flagyl in case there is an anaerobic process somewhere. Get a CT of the abdomen and pelvis. He was scheduled to have a cystoscopy on Wednesday with his urologist. 2. METABOLIC ENCEPHALOPATHY PER THE ABOVE. 3. CHRONIC DIASTOLIC CONGESTIVE HEART FAILURE. The patient appears to be euvolemic at this point. 4. DIABETES MELLITUS TYPE 2. Continue sliding-scale coverage as well as home insulin. 5. END-STAGE RENAL DISEASE. The patient dialyzes Wednesday, Wednesday, Wednesday. Do appreciate Nephrology's input with this. 6. HISTORY OF BLADDER CANCER. The patient has had several surgeries as well as cystoscopies. Will obtain imaging and possibly follow up with his urologist. DISPOSITION: THE PATIENT IS A FULL CODE. Pending the patient's symptomatology and diagnostic findings, will re-evaluate in the a.m. Time spent on this followup, including assessment/plan, physical examination, patient education, and review of records, is 35 minutes. DICTATING PHYSICIAN: GORDO ADLER NP [id number] PHY#: [id number] ID: [id number] JOB#: [id number] ACCT: [id number] cc: >
[2018-12-12] MEDS: ASPIRIN 81 MG TABLET, ENT COATED PO SCH (12:25)
[2018-12-12] MEDS: TICAGRELOR 90 MG TABLET PO SCH ×2 (12:25→22:08)
[2018-12-12] MEDS: CARVEDILOL 12.5 MG TABLET PO SCH ×2 (12:26→22:08)
[2018-12-12 12:29] LABS: TROPONIN I 0.12 ng/mL
--- NOTE | 2018-12-12 12:36 | RADIOLOGY REPORT (SQ) ---
EXAM DESCRIPTION: CT ABD/PELVIS NO ORAL OR IV COMPLETED DATE/TIME: 12/12/2018 11:54 am REASON FOR STUDY: FUO COMPARISON: CT abdomen pelvis 04/13/2016 TECHNIQUE: CT scan of the abdomen and pelvis performed without intravenous or oral contrast. Images reviewed with lung, soft tissue, and bone windows. Reconstructed coronal and sagittal MPR images revi ewed. All images stored on PACS. All CT scanners at this facility use dose modulation, iterative reconstruction, and/or weight based d osing when appropriate to reduce radiation dose to as low as reasonably achievable (ALARA). [facility]: Dose Right [facility]: CareDose [facility]: Dose Right [facility]: Teradose 4D [facility]: [employer] RADIATION DOSE: CT Rad equipment meets quality standard of care and radiation dose reduction techniq ues were employed. CTDIvol: 18.9 mGy. DLP: 1103 mGy-cm.mGy. LIMITATIONS: None. FINDINGS: LOWER CHEST: Trace bilateral pleural effusions are present with minimal left basilar airsp hanna disease atelectasis versus pneumonia. NON-CONTRASTED LIVER, SPLEEN, ADRENALS: Evaluation limited by lack of IV contrast. No identified sign ificant masses. PANCREAS: No masses. No peripancreatic inflammatory changes. GALLBLADDER: No identified stones by CT criteria. No inflammatory changes to suggest cholecystitis. RIGHT KIDNEY AND URETER: No suspicious masses. Assessment limited by lack of IV contrast. No signif icant calcifications. There is dilatation of the right renal pelvis and ureter down to the ureterov esical junction. Patient has had prostatectomy and pelvic surgeries in the past. Chronic right dist al ureteral stricture is suspected, degree of distention of the right collecting system is similar co mpared to 04/13/2016. LEFT KIDNEY AND URETER: No suspicious masses. Assessment limited by lack of IV contrast. No signifi cant calcifications. There is dilatation of the left renal pelvis and ureter down to the ureteroves ical junction. Patient has had prior prostatectomy and pelvic surgeries in the past. Chronic left d istal ureteral stricture is suspected, degree of distention of the left collecting system is similar compared to 04/13/2016. AORTA AND RETROPERITONEUM: No aneurysm. No retroperitoneal masses or adenopathy. BOWEL AND PERITONEAL CAVITY: No obvious masses or inflammatory changes. No free fluid. APPENDIX: Normal. PELVIS, BLADDER, AND ABDOMINAL WALL:Bladder is decompressed, bladder volume less than 15 mL. Suspect bilateral distal ureteral strictures, similar compared to 04/13/2016 with dilatation of the distal ure ters in the pelvis. No free pelvic fluid. No pelvic adenopathy. BONES: Lower lumbar fusion with disc spacers at L4-5 and L5-S1 OTHER: No other significant finding. IMPRESSION: Minimal left basilar atelectasis versus pneumonia Post prostatectomy with chronic appearing bilateral hydronephrosis and hydroureter COMMENT: Quality ID # [id number]: Final reports with documentation of one or more dose reduction techniques (e.g., Automated exposure control, adjustment of the mA and/or kV according to patient size, use of iterative reconstruction technique) TECHNICAL DOCUMENTATION: JOB ID: [id number] [employer]- All Rights Reserved Reading location - IP/workstation name: [email or web address]
[2018-12-12] MEDS ORDERED: PHENAZOPYRIDINE HCL 200 MG TABLET PO PRN (15:23)
[2018-12-12] MEDS: LORAZEPAM 1 MG TABLET PO PRN (15:35)
[2018-12-12] MEDS ORDERED: GENTAMICIN SULFATE 0 MG in DEXTROSE 5%-WATER 100 ML IV NR ×2 (16:30→17:45)
[2018-12-12] MEDS ORDERED: VANCOMYCIN HCL 750 MG in DEXTROSE 5%-WATER 250 ML IV SCH (18:00)
[2018-12-12] MEDS: ACETAMINOPHEN 325 MG TABLET PO SCH ×2 (18:21→22:09)
--- NOTE | 2018-12-12 19:04 | TRANSFER SUMMARY E ---
Transfer Summary NAME: BERNADETTE BURGOS : 1945 AGE: 73Y ADMITTED: 12/10/2018 TRANSFERRED: 12/12/2018 CODE STATUS: Full code. UROLOGIST: Joey Kwong M.D. HOOP FLARING MACHINE OPERATOR HELPER: Diamond Pratt M.D. MANAGER REGULATORY: Buck Carbone M.D. PRIMARY CARE PROVIDER: Glynn Gallo M.D. TRANSFER DIAGNOSES: 1. Fever of unknown origin with high suspicion of urinary etiology. 2. Long history of multiple urological procedures, including bladder cancer. 3. End-stage renal disease with dialysis on Wednesday, Wednesday, Wednesday. The patient last dialyzed on 12/12/2018. 4. Metabolic encephalopathy, most likely secondary to #1. 5. Chronic diastolic congestive heart failure. 6. Diabetes mellitus type 2. CURRENT MEDICATIONS: 1. Vancomycin. 2. Gentamicin. 3. ProAir HFA 2 puffs inhalation q.4 hours p.r.n. 4. DuoNebs 1 neb q.4 hours p.r.n. 5. Brilinta 90 mg p.o. q.12 hours. 6. Lipitor 40 mg p.o. q. hour of sleep. 7. Coreg 25 mg p.o. q.12 hours. 8. Tylenol 650 mg p.o. q.4 hours. 9. Aspirin 81 mg p.o. daily. 10. Ativan 1 mg p.o. q.6 hours p.r.n. 11. Tramadol 80 mg p.o. q.8 hours p.r.n. 12. Flonase 2 sprays nasally daily p.r.n. 13. Protonix 40 mg p.o. q.a.m. 14. Singulair 10 mg p.o. q. hour of sleep. 15. Pyridium 200 mg p.o. q.8 hours p.r.n. ACTIVITY: Bedrest. DIET: Will be made n.p.o. for transfer. CONDITION: Fair. PHYSICAL EXAMINATION: GENERAL: On examination the patient is a well-developed, chronically ill-appearing, 73-year-old male who is awake, alert, and oriented to person, place, time, and situation. He is verbal, conversational, does not appear to be distressed, a little delay. VITAL SIGNS: Temperature is 99.8, pulse 91, respirations 24, blood pressure is 114/41, oxygen saturation is 96% on 2 liters nasal cannula. SKIN: Warm and dry. No rash. He is not diaphoretic. HEENT: Pupils are reactive. Conjunctivae is pink. There is no evidence of JVP. CARDIOVASCULAR: Heart is regular, no rub. CHEST: Clear, symmetrical, unlabored. ABDOMEN: Soft, nontender.. EXTREMITIES: No clubbing, cyanosis, or edema. PSYCHIATRIC: The patient is a little delayed. DIAGNOSTICS: Lab values are as follows - hematology obtained on 12/12/2018; WBC is 5.5, hemoglobin is 10.6, hematocrit is 31.2, platelet count is 233,000. Coagulation obtained on 12/09/2018; PT is 13.1, INR is 0.95. Chemistry obtained on 12/12/2018; sodium is 140, potassium is 4.1, chloride 100, carbon dioxide 27, BUN 59, creatinine is 8.28, glucose 102. Lactic acid is 1.7. Calcium is 8.5, magnesium is 1.9, bilirubin 0.8, AST 27, ALT 22, alk-phos 91. CK 154, CK-MB 0.85, troponin is 0.068. Total protein 7.1, albumin 3.6. B12 is 550. TSH 0.71. Cerebrospinal fluid obtained on 12/09/2018; reveals no growth. Serology obtained on 12/09/2018; influenza A and B are negative. Microbiology; blood cultures obtained on 12/09/2018 revealed no growth. Viral and AFBs are pending from the culture. Chest x-ray obtained 12/09/2018 reveals no pulmonary findings. Head CT obtained on 12/10/2018 reveals no acute findings. Chest x-ray obtained on 12/11/2018 reveals no acute cardiopulmonary findings. CT of the abdomen and pelvis obtained on 12/12/2018 reveals minimal left basilar atelectasis versus pneumonia. Post prostatectomy with chronic appearing bilateral hydronephrosis and hydroureter. HISTORY OF PRESENT ILLNESS: The patient is a 73-year-old male with a past medical history that includes bladder cancer and end-stage renal disease with chronic hemodialysis. The patient presented to the emergency department with a chief complaint of confusion and fever. According to the patient's the patient was very tired, could not get out of his car. According to the the patient normally does fine after dialysis, shortly thereafter the patient developed a fever of 101.7. Therefore, his called EMS. Upon presentation to the Emergency Department the patient was found to be confused. Cultures were drawn, except for urine because the patient is anuric and an LP was performed that had no obvious source of infection. Head CT did not reveal any acute changes. Upon the *------* evaluation of the patient, the patient was alert and did know he was in the hospital but not sure which one. Given the patient's encephalopathy and fever he was referred to the hospitalist for admission and management. HOSPITAL COURSE: The patient was admitted to [facility]. The patient was started on broad spectrum antibiotic coverage which include vancomycin and cefepime for the first 24 hours of his stay. The patient's initial fever broke on 12/10/2018 but re-spiked again on 12/11/2018 at 2100 hours. The patient was subsequently covered with additional adding Flagyl without benefit. Therefore, the patient was transitioned to vancomycin and gentamicin. The patient continues to be somewhat encephalopathic, still not back to his baseline, and actually had an episode of what appeared to be a panic attack on the floor. The patient's blood gas was reflective of hyperventilation. The patient improved significantly with the dose of Ativan. The patient dialyzed today without issue. His blood pressure tolerated it. The patient has not had an impressive white count or nothing to suggest he is an actual septic state. However, the patient's fevers are persisting and the patient has rigors associated with this. The patient's symptoms behave much like a pyelonephritis. I did call and discuss the case with Dr. Kwong, the patient's urologist, whom he was scheduled to have a cystoscopy with tomorrow. He was able to review the films and the only recommendation at this time is nephrostomy tube placement, which does not appear to be something that is needed in an emergent situation given the patient is not decompensated at this point. I did discuss the case with the hospitalist, Dr. Perez, who has agreed to accept the patient on transfer pending bed availability. Should the patient decline and need emergent urological intervention or an vp organizational development service, then this does need to be reevaluated. At this time the patient can go to a stepdown unit at [facility] pending bed availability, and again should the patient require emergent urological intervention or nephrostomy tube placement, other facilities do need to be investigated. At this time the patient is stable and receiving antibiotics and I have discussed the case with interventional radiology at this facility and at this time I do not feel it would be ideal for nephrostomy tubes to be placed given the patient's complicated renal history and it would be ideal for this to be done at a facility where the patient's urologist knows him. Family and patient are in agreeance with this plan. TIME SPENT: On this transfer including assessment and plan, physical examination, patient education, review of records, and specialty collaboration is 90 minutes. DICTATING PHYSICIAN: GRODO ADLER NP [id number] PHY#: [id number] ID: [id number] JOB#: [id number] ACCT: [id number] cc:GORDO ADLER NP >
[2018-12-12] MEDS ORDERED: GENTAMICIN SULFATE 120 MG in DEXTROSE 5%-WATER 100 ML IV SCH (20:00)
[2018-12-12] MEDS: MONTELUKAST SODIUM 10 MG TABLET PO SCH (22:09)
[2018-12-12] MEDS: ATORVASTATIN CALCIUM 40 MG TABLET PO SCH (22:09)
[2018-12-13] MEDS: TRAMADOL HCL 50 MG TABLET PO PRN (01:42)
[2018-12-13] MEDS: ACETAMINOPHEN 325 MG TABLET PO SCH ×6 (01:45→21:39)
[2018-12-13] MEDS: PANTOPRAZOLE SODIUM 40 MG TABLET.DR PO SCH (05:44)
[2018-12-13] MEDS: ALBUTEROL SULFATE HFA (90 MCG/PUFF) 200 PUFF/8.5 GM MDI IH PRN (06:10)
[2018-12-13] MEDS: LORAZEPAM 1 MG TABLET PO PRN ×2 (06:16→21:59)
[2018-12-13] MEDS: INSULIN LISPRO 100 UNIT/ML 3 ML VIAL SUBCUT SCH ×7 (07:36→21:53)
[2018-12-13] MEDS ORDERED: AZTREONAM 1 GM in DEXTROSE 5%-WATER 50 ML IV SCH (10:00)
[2018-12-13] MEDS: TICAGRELOR 90 MG TABLET PO SCH ×2 (10:43→22:12)
[2018-12-13] MEDS: CARVEDILOL 12.5 MG TABLET PO SCH ×2 (10:44→21:38)
[2018-12-13] MEDS: ASPIRIN 81 MG TABLET, ENT COATED PO SCH (10:44)
--- NOTE | 2018-12-13 11:11 | RADIOLOGY REPORT (SQ) ---
EXAM DESCRIPTION: CHEST SINGLE VIEW COMPLETED DATE/TIME: 12/13/2018 10:45 am REASON FOR STUDY: sob COMPARISON: 12/11/2018 EXAM PARAMETERS: NUMBER OF VIEWS: One view. TECHNIQUE: Single frontal radiographic view of the chest acquired. RADIATION DOSE: NA LIMITATIONS: None. FINDINGS: LUNGS AND PLEURA: There is ill-defined opacification in the left base. MEDIASTINUM AND HILAR STRUCTURES: No masses. Contour normal. HEART AND VASCULAR STRUCTURES: Heart normal in size. Normal vasculature. BONES: No acute findings. HARDWARE: None in the chest. OTHER: No other significant finding. IMPRESSION: Cannot exclude left lower lobe pneumonia. TECHNICAL DOCUMENTATION: JOB ID: [id number] [employer]- All Rights Reserved Reading location - IP/workstation name: [email or web address]
[2018-12-13 11:15] LABS: ARTERIAL BLOOD BASE EXCESS 1.7 mmol/L; ARTERIAL BLOOD H2CO3 1.34 mmol/L (1.05-1.35); ARTERIAL BLOOD HCO3 26.8 mmol/L (20-24); ARTERIAL BLOOD O2 SATURATION 81.8 % (94-98); ARTERIAL BLOOD PCO2 44.4 mmHg (35-45); ARTERIAL BLOOD TOTAL CO2 28.2 mmol/L (23-27)
[2018-12-13 11:34] LABS: ARTERIAL BLOOD FIO2 50%
[2018-12-13 11:38] LABS: ABSOLUTE LYMPHOCYTES (AUTO) 0.9 10^3/uL (0.5-4.7); ABSOLUTE MONOCYTES (AUTO) 0.6 10^3/uL (0.1-1.4); ABSOLUTE NEUT (AUTO) 2.9 10^3/uL (1.7-8.2); BASOPHILS % (AUTO) 0.7 % (0-2); EOSINOPHILS % (AUTO) 0.9 % (0-6); HEMATOCRIT 30.4 % (37.9-51.0); HEMOGLOBIN 10.2 g/dL (13.5-17.0); MEAN CORPUSCULAR HEMOGLOBIN 32.9 pg (27.0-33.4); MEAN CORPUSCULAR HGB CONC 33.6 g/dL (32.0-36.0); MEAN CORPUSCULAR VOLUME 98 fl (80-97); MONOCYTES % (AUTO) 13.5 % (3-13); PLATELET COUNT 240 10^3/uL (150-450); RED BLOOD COUNT 3.11 10^6/uL (4.35-5.55); RED CELL DISTRIBUTION WIDTH 16.1 % (11.5-14.0); SEGMENTED NEUTROPHILS % (AUTO) 63.9 % (42-78); TOTAL CELLS COUNTED % (AUTO) 100 %; WHITE BLOOD COUNT 4.5 10^3/uL (4.0-10.5)
[2018-12-13] MEDS: AZTREONAM 0.5 GM in DEXTROSE 5%-WATER 50 ML IV SCH (11:38)
[2018-12-13 12:06] LABS: ALANINE AMINOTRANSFERASE 32 U/L (21-72); ALKALINE PHOSPHATASE 72 U/L (38-126); ASPARTATE AMINO TRANSFERASE 32 U/L (17-59); BILIRUBIN,DIRECT 0.3 mg/dL (0.0-0.4); BILIRUBIN,TOTAL 0.7 mg/dL (0.2-1.3)
[2018-12-13 12:29] LABS: ALBUMIN 3.2 g/dL (3.5-5.0); ANION GAP 15 (5-19); BLOOD UREA NITROGEN 50 mg/dL (7-20); CALCIUM 8.3 mg/dL (8.4-10.2); CARBON DIOXIDE 25 mmol/L (22-30); CHLORIDE 97 mmol/L (98-107); GLUCOSE 161 mg/dL (75-110); POTASSIUM 4.6 mmol/L (3.6-5.0); SODIUM 136.8 mmol/L (137-145); TOTAL PROTEIN 6.7 g/dL (6.3-8.2)
--- NOTE | 2018-12-13 14:46 | PDOC PROGRESS REPORT ---
Subjective Progress Note for:: 12/13/18 Subjective:: This is 73 years old male patient with multiple comorbidities eluding diastolic CHF, hypertension, hyperlipidemia, obstructive sleep apnea, type 2 diabetes mellitus, end-stage renal disease on hemodialysis history of lymphoma, skin and bladder cancer brought by EMS for not feeling well and shortly after hemodialysis patient could not get out of his car and developed also fever of 101.7. With suspicion of meningitis LP was done but the CSF profile is within normal limits. His blood and urine cultures are negative. Patient has been managed empirically with antibiotics including vancomycin and gentamicin. Currently patient is on vancomycin and Azactam. Currently patient has been awaiting transfer to [facility]. This morning the nurse in charge of him called me because patient is dyspneic and disoriented. When I seen him patient is awake alert respond to verbal stimuli appropriately. On chest examination he has diffuse wheezing. ABG is done and it shows normal pH and PCO2 but his PO2 is 46. Patient is put on BiPAP and transferred to ICU. Reason For Visit: FEVER OF UNKNOWN ORIGIN Physical Exam Vital Signs: Temp Pulse Resp BP Pulse Ox 100.7 F H 85 24 H 135/56 H 48 L 12/13/18 07:20 12/13/18 07:20 12/13/18 12:35 12/13/18 07:20 12/13/18 12:35 Intake & Output 12/12/18 12/13/18 12/14/18 06:59 06:59 06:59 Intake Total 405 1099 287 Output Total 1825 Balance 405 -726 287 Weight 115.9 kg 112.2 kg General appearance: PRESENT: morbidly obese, severe distress Head exam: PRESENT: atraumatic Eye exam: PRESENT: conjunctiva pink Teeth exam: PRESENT: edentulous Respiratory exam: PRESENT: wheezes Cardiovascular exam: PRESENT: irregular rhythm Neurological exam: PRESENT: alert, awake Results Laboratory Results: 12/13/18 11:12 12/13/18 11:12 12/13/18 12/13/18 12/13/18 10:28 10:55 11:12 WBC 4.5 RBC 3.11 L Hgb 10.2 L Hct 30.4 L MCV 98 H MCH 32.9 MCHC 33.6 RDW 16.1 H Plt Count 240 Seg Neutrophils % 63.9 Lymphocytes % 21.0 Monocytes % 13.5 H Eosinophils % 0.9 Basophils % 0.7 Absolute Neutrophils 2.9 Absolute Lymphocytes 0.9 Absolute Monocytes 0.6 Absolute Eosinophils 0.0 Absolute Basophils 0.0 Carbonic Acid Cancelled 1.34 HCO3/H2CO3 Ratio Cancelled 20:1 ABG pH Cancelled 7.40 ABG pCO2 Cancelled 44.4 ABG pO2 Cancelled 46.0 L ABG HCO3 Cancelled 26.8 H ABG O2 Saturation Cancelled 81.8 L ABG Base Excess Cancelled 1.7 FiO2 Cancelled 50% Sodium Potassium Chloride Carbon Dioxide Anion Gap BUN Creatinine Est GFR ( Amer) Est GFR (Non-Af Amer) Glucose Calcium Total Bilirubin AST ALT Alkaline Phosphatase Total Protein Albumin 12/13/18 11:12 WBC RBC Hgb Hct MCV MCH MCHC RDW Plt Count Seg Neutrophils % Lymphocytes % Monocytes % Eosinophils % Basophils % Absolute Neutrophils Absolute Lymphocytes Absolute Monocytes Absolute Eosinophils Absolute Basophils Carbonic Acid HCO3/H2CO3 Ratio ABG pH ABG pCO2 ABG pO2 ABG HCO3 ABG O2 Saturation ABG Base Excess FiO2 Sodium 136.8 L Potassium 4.6 Chloride 97 L Carbon Dioxide 25 Anion Gap 15 BUN 50 H Creatinine 7.89 H Est GFR ( Amer) 8 L Est GFR (Non-Af Amer) 7 L Glucose 161 H Calcium 8.3 L Total Bilirubin 0.7 AST 32 ALT 32 Alkaline Phosphatase 72 Total Protein 6.7 Albumin 3.2 L 12/09/18 23:40 Cerebral Spinal Fluid - Csf Gram Stain - Final 12/09/18 23:40 Cerebral Spinal Fluid - Csf CSF Culture - Final NO GROWTH 3 DAYS 12/10/18 12/11/18 12/11/18 08:47 20:18 21:08 Creatine Kinase 154 CK-MB (CK-2) 0.85 Troponin I 0.068 0.068 12/12/18 12/12/18 12/12/18 03:09 03:09 10:58 Creatine Kinase 124 120 CK-MB (CK-2) 0.73 Troponin I 0.103 12/12/18 10:58 Creatine Kinase CK-MB (CK-2) 0.74 Troponin I 0.120 Impressions: Head CT 12/10/18 01:10 IMPRESSION: No acute findings. Abdomen/Pelvis CT 12/12/18 00:00 IMPRESSION: Minimal left basilar atelectasis versus pneumonia Post prostatectomy with chronic appearing bilateral hydronephrosis and hydroureter Chest X-Ray 12/13/18 00:00 IMPRESSION: Cannot exclude left lower lobe pneumonia. Assessment and Plan - Diagnosis (1) Acute encephalopathy Is this a current diagnosis for this admission?: Yes Plan: Most probably metabolic. Patient still mildly disoriented. (2) Fever Is this a current diagnosis for this admission?: Yes Plan: Source of infection so far is not identified. Meningitis ruled out. I will continue vancomycin and Azactam. (3) End-stage renal disease on hemodialysis Is this a current diagnosis for this admission?: Yes Plan: Management per circuit breaker supervisor. (4) Obstructive sleep apnea Is this a current diagnosis for this admission?: Yes Plan: Continue BiPAP. (5) Acute hypoxemic respiratory failure Is this a current diagnosis for this admission?: Yes Plan: Continue BiPAP and supplemental oxygen. (6) Diastolic CHF Qualifiers: Heart failure chronicity: chronic Qualified Code(s): I50.32 - Chronic diastolic (congestive) heart failure Is this a current diagnosis for this admission?: Yes Plan: Continue current regimen (7) Type 2 diabetes mellitus Is this a current diagnosis for this admission?: Yes Plan: We will continue current regimen. (8) Obesity (BMI 35.0-39.9 without comorbidity) Is this a current diagnosis for this admission?: Yes Plan: Lifestyle modification advised. (9) Hypertension and hyperlipidemia Is this a current diagnosis for this admission?: Yes Plan: Continue current regimen.
--- NOTE | 2018-12-13 18:06 | PDOC PROGRESS REPORT ---
Subjective Progress Note for:: 12/13/18 Reason For Visit: . Patient seen today in the ICU. Earlier today he became more dyspneic and had some worsening of his AMS. Patient was put on BiPAP and transferred to ICU.He is being treated for FUO with Vanc and Azobactam. Still continues to be febrile. He is currently on the Bipap in the ICU .He is able to recognise me and talk appropriately to questions. He denies any history of chest pains, headaches, abdominal pains, dysuria, fever or chills. He has got some mild intermittent cramps in his legs and has intermittent jerky movements of his upper extremities at times.Labs and medications were reviewed. Discussions were done with the getting ICU nurse.Patient is awaiting transfer to tertiary hospital once bed available. Physical Exam Vital Signs: Temp Pulse Resp BP Pulse Ox 101.2 F H 81 24 H 133/52 H 100 12/13/18 16:00 12/13/18 16:03 12/13/18 17:30 12/13/18 16:00 12/13/18 17:30 Intake & Output 12/12/18 12/13/18 12/14/18 06:59 06:59 06:59 Intake Total 405 1099 287 Output Total 1825 Balance 405 -726 287 Weight 115.9 kg 112.2 kg General appearance: PRESENT: mild distress - On BiPAP in the ICU. Respiratory exam: PRESENT: clear to auscultation marisol, decreased breath sounds. ABSENT: crackles Cardiovascular exam: PRESENT: +S1, +S2 GI/Abdominal exam: PRESENT: normal bowel sounds, soft. ABSENT: organomegaly, tenderness Extremities exam: ABSENT: pedal edema Neurological exam: PRESENT: alert, awake, oriented to person, oriented to place Psychiatric exam: PRESENT: appropriate affect Skin exam: ABSENT: erythema, mottled, rash Results Laboratory Results: 12/13/18 11:12 12/13/18 11:12 12/13/18 12/13/18 12/13/18 10:28 10:55 11:12 WBC 4.5 RBC 3.11 L Hgb 10.2 L Hct 30.4 L MCV 98 H MCH 32.9 MCHC 33.6 RDW 16.1 H Plt Count 240 Seg Neutrophils % 63.9 Lymphocytes % 21.0 Monocytes % 13.5 H Eosinophils % 0.9 Basophils % 0.7 Absolute Neutrophils 2.9 Absolute Lymphocytes 0.9 Absolute Monocytes 0.6 Absolute Eosinophils 0.0 Absolute Basophils 0.0 Carbonic Acid Cancelled 1.34 HCO3/H2CO3 Ratio Cancelled 20:1 ABG pH Cancelled 7.40 ABG pCO2 Cancelled 44.4 ABG pO2 Cancelled 46.0 L ABG HCO3 Cancelled 26.8 H ABG O2 Saturation Cancelled 81.8 L ABG Base Excess Cancelled 1.7 FiO2 Cancelled 50% Sodium Potassium Chloride Carbon Dioxide Anion Gap BUN Creatinine Est GFR ( Amer) Est GFR (Non-Af Amer) Glucose Calcium Total Bilirubin AST ALT Alkaline Phosphatase Total Protein Albumin 12/13/18 11:12 WBC RBC Hgb Hct MCV MCH MCHC RDW Plt Count Seg Neutrophils % Lymphocytes % Monocytes % Eosinophils % Basophils % Absolute Neutrophils Absolute Lymphocytes Absolute Monocytes Absolute Eosinophils Absolute Basophils Carbonic Acid HCO3/H2CO3 Ratio ABG pH ABG pCO2 ABG pO2 ABG HCO3 ABG O2 Saturation ABG Base Excess FiO2 Sodium 136.8 L Potassium 4.6 Chloride 97 L Carbon Dioxide 25 Anion Gap 15 BUN 50 H Creatinine 7.89 H Est GFR ( Amer) 8 L Est GFR (Non-Af Amer) 7 L Glucose 161 H Calcium 8.3 L Total Bilirubin 0.7 AST 32 ALT 32 Alkaline Phosphatase 72 Total Protein 6.7 Albumin 3.2 L 12/09/18 23:40 Cerebral Spinal Fluid - Csf Gram Stain - Final 12/09/18 23:40 Cerebral Spinal Fluid - Csf CSF Culture - Final NO GROWTH 3 DAYS 12/10/18 12/11/18 12/11/18 08:47 20:18 21:08 Creatine Kinase 154 CK-MB (CK-2) 0.85 Troponin I 0.068 0.068 12/12/18 12/12/18 12/12/18 03:09 03:09 10:58 Creatine Kinase 124 120 CK-MB (CK-2) 0.73 Troponin I 0.103 12/12/18 10:58 Creatine Kinase CK-MB (CK-2) 0.74 Troponin I 0.120 Impressions: Head CT 12/10/18 01:10 IMPRESSION: No acute findings. Abdomen/Pelvis CT 12/12/18 00:00 IMPRESSION: Minimal left basilar atelectasis versus pneumonia Post prostatectomy with chronic appearing bilateral hydronephrosis and hydroureter Chest X-Ray 12/13/18 00:00 IMPRESSION: Cannot exclude left lower lobe pneumonia. Assessment & Plan - Diagnosis (1) ESRF (end stage renal failure) Is this a current diagnosis for this admission?: Yes Plan: Plan for dialysis in the morning. (2) Altered mental status Qualifiers: Altered mental status type: disorientation Qualified Code(s): R41.0 - Disorientation, unspecified Is this a current diagnosis for this admission?: Yes Plan: Clinically improved. However he is not back to his baseline. (3) Fever Qualifiers: Fever type: unspecified Qualified Code(s): R50.9 - Fever, unspecified Is this a current diagnosis for this admission?: Yes Plan: Of unknown origin. Patient currently on Vanc/Azobactam. Cultures so far negative. (4) Generalized weakness Plan: Status quo. (5) Diabetes mellitus Qualifiers: Diabetes mellitus type: type 2 Diabetes mellitus correction insulin use: with correction use Diabetes mellitus complication status: with kidney complications Diabetes mellitus complication detail: with chronic kidney disease Chronic kidney disease stage: stage 3 (moderate) Qualified Code(s): E11.22 - Type 2 diabetes mellitus with diabetic chronic kidney disease Plan: Good control in the hospital now. (6) History of bladder cancer Is this a current diagnosis for this admission?: Yes Plan: Status quo.
[2018-12-13] MEDS ORDERED: LEVOFLOXACIN 500 MG/D5W RTU 500 MG/100 ML RTUPB IV SCH (20:30)
[2018-12-13] MEDS: MONTELUKAST SODIUM 10 MG TABLET PO SCH (21:38)
[2018-12-13] MEDS: ATORVASTATIN CALCIUM 40 MG TABLET PO SCH (21:38)
[2018-12-13] MEDS ORDERED: HYDRALAZINE HCL INJ/PF 20 MG/1 ML SDV ONE (22:55)
[2018-12-14] MEDS: AZTREONAM 0.5 GM in DEXTROSE 5%-WATER 50 ML IV SCH ×3 (00:28→23:51)
[2018-12-14] MEDS: TRAMADOL HCL 50 MG TABLET PO PRN ×2 (01:00→09:02)
[2018-12-14] MEDS ORDERED: HYDRALAZINE HCL INJ/PF 20 MG/1 ML SDV IV PRN (01:30)
[2018-12-14] MEDS: ACETAMINOPHEN 325 MG TABLET PO SCH ×6 (02:52→21:41)
[2018-12-14] MEDS ORDERED: EPOETIN ALFA INJ 20000 UNIT/1 ML VIAL (RENAL) IV PRN (05:00)
[2018-12-14] MEDS: PANTOPRAZOLE SODIUM 40 MG TABLET.DR PO SCH (05:17)
[2018-12-14 06:24] LABS: VANCOMYCIN,TROUGH 22.3 ug/mL (5.0-20.0)
[2018-12-14] MEDS: INSULIN LISPRO 100 UNIT/ML 3 ML VIAL SUBCUT SCH ×7 (07:50→21:39)
[2018-12-14] MEDS ORDERED: EPOETIN ALFA 5,000 UNIT in SYRINGE, DISPOSABLE, 1 EACH IV PRN (08:26)
[2018-12-14] MEDS: IPRATROPIUM/ALBUTEROL 0.5-2.5 MG/3 ML AMPUL NEB PRN (08:38)
[2018-12-14 08:44] LABS: HEMATOCRIT 27.9 % (37.9-51.0); HEMOGLOBIN 9.5 g/dL (13.5-17.0); MEAN CORPUSCULAR HEMOGLOBIN 33.3 pg (27.0-33.4); MEAN CORPUSCULAR HGB CONC 34.2 g/dL (32.0-36.0); MEAN CORPUSCULAR VOLUME 97 fl (80-97); PLATELET COUNT 215 10^3/uL (150-450); RED BLOOD COUNT 2.86 10^6/uL (4.35-5.55); RED CELL DISTRIBUTION WIDTH 16.1 % (11.5-14.0)
[2018-12-14 09:15] LABS: ALANINE AMINOTRANSFERASE 29 U/L (21-72); ALKALINE PHOSPHATASE 69 U/L (38-126); ANION GAP 17 (5-19); ASPARTATE AMINO TRANSFERASE 25 U/L (17-59); BILIRUBIN,DIRECT 0.4 mg/dL (0.0-0.4); BILIRUBIN,TOTAL 0.6 mg/dL (0.2-1.3); BLOOD UREA NITROGEN 62 mg/dL (7-20); CALCIUM 8.3 mg/dL (8.4-10.2); CARBON DIOXIDE 22 mmol/L (22-30); CHLORIDE 98 mmol/L (98-107); GLUCOSE 113 mg/dL (75-110); SODIUM 136.6 mmol/L (137-145); TOTAL PROTEIN 6.2 g/dL (6.3-8.2)
[2018-12-14] MEDS: CARVEDILOL 12.5 MG TABLET PO SCH ×2 (09:22→22:05)
[2018-12-14] MEDS: TICAGRELOR 90 MG TABLET PO SCH ×2 (09:23→21:41)
[2018-12-14] MEDS: ASPIRIN 81 MG TABLET, ENT COATED PO SCH (09:23)
[2018-12-14] MEDS ORDERED: FENTANYL CITRATE INJ/PF 100 MCG/2 ML AMPUL ONE (09:31)
[2018-12-14] MEDS ORDERED: MORPHINE SULFATE 10 MG/ML INJ IV ONE (10:00)
--- NOTE | 2018-12-14 12:41 | PDOC PROGRESS REPORT ---
Subjective Progress Note for:: 12/14/18 Subjective:: This is a 73 yr old male with a PMH of ESRD on MWF dialysis, IDDM, diastolic heart failure MARK, CAD, bladder CA and HTN who presented with fever and acute confusion. He had an LP done and a head CT which were unrevealing. He was admitted to the IMCU due to acute encephalopathy. Apparently yesterday, he was more confused in IMCU and was also noted by RN to be tachycardic and have more crackles on lung exam hence was moved to the ICU and placed on BIPAP. In the ICU, per ICU nurse, he was more coherent and oriented. No acute event overnight but this morning while getting dialysis, he complained of worsening low back pain not relieved with tramadol and toradol. He does have chronic low back pain and had titanium plates placed in the past. He is well oriented and coherent this morning. He was given fentanyl which gave him significant relief from the pain. Reason For Visit: FEVER OF UNKNOWN ORIGIN Physical Exam Vital Signs: Temp Pulse Resp BP Pulse Ox 100.5 F H 79 19 110/60 100 12/14/18 08:00 12/14/18 10:00 12/14/18 10:00 12/14/18 10:00 12/14/18 10:00 Intake & Output 12/13/18 12/14/18 12/15/18 06:59 06:59 06:59 Intake Total 1099 437 120 Output Total 1825 0 Balance -726 437 120 Weight 247 lb 5.738 oz 245 lb 13.047 oz General appearance: PRESENT: mild distress - from low back pain, well-developed, well-nourished Head exam: PRESENT: atraumatic, normocephalic Eye exam: PRESENT: conjunctiva pink, EOMI, PERRLA. ABSENT: scleral icterus Ear exam: PRESENT: normal external ear exam Mouth exam: PRESENT: moist, tongue midline Neck exam: ABSENT: carotid bruit, JVD, lymphadenopathy, thyromegaly Respiratory exam: PRESENT: rhonchi. ABSENT: rales, wheezes Cardiovascular exam: PRESENT: RRR. ABSENT: diastolic murmur, rubs, systolic murmur Pulses: PRESENT: normal dorsalis pedis pul GI/Abdominal exam: PRESENT: normal bowel sounds, soft. ABSENT: distended, guarding, mass, organolmegaly, rebound, tenderness Rectal exam: PRESENT: deferred Extremities exam: PRESENT: +1 edema Neurological exam: PRESENT: alert, awake, oriented to person, oriented to place, oriented to time, oriented to situation, CN II-XII grossly intact. ABSENT: motor sensory deficit Results Laboratory Results: 12/14/18 08:17 12/14/18 08:17 12/13/18 12/14/18 12/14/18 11:12 08:17 08:17 WBC 4.0 RBC 2.86 L Hgb 9.5 L Hct 27.9 L MCV 97 MCH 33.3 MCHC 34.2 RDW 16.1 H Plt Count 215 Sodium 136.8 L 136.6 L Potassium 4.6 5.0 Chloride 97 L 98 Carbon Dioxide 25 22 Anion Gap 15 17 BUN 50 H 62 H Creatinine 7.89 H 10.29 H Est GFR ( Amer) 8 L 6 L Est GFR (Non-Af Amer) 7 L 5 L Glucose 161 H 113 H Calcium 8.3 L 8.3 L Total Bilirubin 0.7 0.6 AST 32 25 ALT 32 29 Alkaline Phosphatase 72 69 Total Protein 6.7 6.2 L Albumin 3.2 L 3.0 L 12/09/18 23:40 Cerebral Spinal Fluid - Csf Gram Stain - Final 12/09/18 23:40 Cerebral Spinal Fluid - Csf CSF Culture - Final NO GROWTH 3 DAYS 12/10/18 12/11/18 12/11/18 08:47 20:18 21:08 Creatine Kinase 154 CK-MB (CK-2) 0.85 Troponin I 0.068 0.068 12/12/18 12/12/18 12/12/18 03:09 03:09 10:58 Creatine Kinase 124 120 CK-MB (CK-2) 0.73 Troponin I 0.103 12/12/18 10:58 Creatine Kinase CK-MB (CK-2) 0.74 Troponin I 0.120 Impressions: Head CT 12/10/18 01:10 IMPRESSION: No acute findings. Abdomen/Pelvis CT 12/12/18 00:00 IMPRESSION: Minimal left basilar atelectasis versus pneumonia Post prostatectomy with chronic appearing bilateral hydronephrosis and hydroureter Chest X-Ray 12/13/18 00:00 IMPRESSION: Cannot exclude left lower lobe pneumonia. Assessment and Plan - Diagnosis (1) Sepsis Is this a current diagnosis for this admission?: Yes Plan: 12/14: Possible from pyelonephritis. Patient was straight cathed and there was purulent drainage around 10 cc obtained. Sent for UA and urine culture. Called [facility] where patient follows up [facility], Dr. Kwong. He is still on a waitlist for bed placement. Family prefers him going to [facility]. Also called [facility] and they also don't have availability at the moment. (2) Pyelonephritis Is this a current diagnosis for this admission?: Yes Plan: As per number 1. (3) Acute encephalopathy Is this a current diagnosis for this admission?: Yes Plan: Possibly multifactorial, acute delirium, metabolic and ongoing infection. Appears his confusion is waxing and waning. Upon encounter this morning, he was oriented x 3. (4) Acute hypoxemic respiratory failure Is this a current diagnosis for this admission?: Yes Plan: Wean off BIPAP. Chest x-ray yesterday shows left sided infiltrate. Continue antibiotics for possible pneumonia. (5) End-stage renal disease on hemodialysis Is this a current diagnosis for this admission?: Yes Plan: Getting dialysis. Nephrology following. (6) Obstructive sleep apnea Is this a current diagnosis for this admission?: Yes Plan: BIPAP at night. (7) Hydronephrosis Is this a current diagnosis for this admission?: Yes Plan: He has history of bladder CA and also has prior prostate surgeries. CT shows bilateral hydronephrosis and possible left ureteral stricture. He is on waiting list at [facility] for possible urology intervention. - Time Time Spent with patient: 25-34 minutes
[2018-12-14 15:11] LABS: APPEARANCE,URINE TURBID; BILIRUBIN,URINE NEGATIVE (NEGATIVE); COLOR,URINE YELLOW; GLUCOSE, URINE NEGATIVE (NEGATIVE); KETONES,URINE NEGATIVE (NEGATIVE); LEUKOCYTE ESTERASE,URINE SMALL (NEGATIVE); NITRITE,URINE NEGATIVE (NEGATIVE); PROTEIN,URINE 100 mg/dL (NEGATIVE); URINE SPECIFIC GRAVITY 1.017; UROBILINOGEN,URINE NEGATIVE mg/dL (<2.0)
--- NOTE | 2018-12-14 16:17 | XCELERA REPORT ---
[address] [facility] [address] Lower Extremity Venous Evaluation Procedure: Color flow and duplex imaging bilaterally of the veins of the lower extremities as well as the Common Femoral veins. Right Sided Venous Evaluation Normal vessel filling wall to wall, compression and augmentation as well as Colour flow down to the infrageniculate veins. Left Sided Venous Evaluation Normal vessel filling wall to wall, compression and augmentation as well as Colour flow down to the infrageniculate veins. Interpretation Summary No duplex evidence of DVT or obstruction in the bilateral lower extremities. Name: BERNADETTE BURGOS Age: 73 yrs Gender: Male : 1945 Patient Status: [facility] Study Date: 12/14/2018 02:04 PM Reason For Study: acute calf pain Ordering Physician: AMANDA OROZCO Performed By: Alexandrea Martin : AMANDA OROZCO > Misael Kohc
--- NOTE | 2018-12-14 16:40 | RADIOLOGY REPORT (SQ) ---
EXAM DESCRIPTION: CT LUMBAR SPINE WITHOUT COMPLETED DATE/TIME: 12/14/2018 3:52 pm REASON FOR STUDY: Back pain COMPARISON: CT abdomen pelvis 12/12/2018 Chest films 12/13/2018, 12/11/2018 TECHNIQUE: Axial images acquired through the lumbar spine without intravenous contrast. Images revi ewed with lung, soft tissue and bone windows. Reconstructed coronal and sagittal MPR images reviewed . All images stored on PACS. All CT scanners at this facility use dose modulation, iterative reconstruction, and/or weight based d osing when appropriate to reduce radiation dose to as low as reasonably achievable (ALARA). [facility]: Dose Right [facility]: CareDose [facility]: Dose Right [facility]: Teradose 4D [facility]: Re Pet RADIATION DOSE: 45 mGy. LIMITATIONS: None. FINDINGS: SEGMENTATION: Normal. No transitional anatomy. ALIGNMENT: There is 25% anterolisthesis of L5 over S1, and disc space prosthesis at 5 1 post fusion. This is similar compared to CT abdomen pelvis 12/12/2018. VERTEBRAL BODIES: No fractures. No dislocation. No acute findings. DISCS: At T10-11, T11-12, T12-L1, L1-2 are unremarkable. At L2-3, mild diffuse posterior disc bulging is present with mild bilateral facet hypertrophy. No si gnificant central or foraminal stenosis. At L3-4, mild central canal stenosis results from broad diffuse posterior disc bulging and moderate b ilateral facet and ligament hypertrophy. Moderate bilateral foraminal narrowing without exit L3 nerv e root impingement. At L4-5, broad diffuse posterior disc bulging and mild bilateral facet hypertrophy is present. Old f usion with disc space prosthesis. No significant central canal narrowing. Mild bilateral foraminal narrowing. At L5-S1, chronic appearing grade 1 anterolisthesis of L5 over S1 is present related to old bilateral spondylolysis. No central stenosis. Moderate to high-grade bilateral foraminal narrowing with part ial effacement of the fat around the exiting L5 nerve roots bilaterally. PEDICLES, TRANSVERSE PROCESSES: No fractures. FACETS, POSTERIOR ELEMENTS: No fractures. Old bilateral spondylolysis at L5 HARDWARE: Disc space prostheses at L4-5 and L5-S1 VISUALIZED RIBS: No fractures. SOFT TISSUES: No significant or acute finding in adjacent soft tissues. OTHER: Left basilar airspace disease is present atelectasis versus pneumonia. IMPRESSION: Degenerative disc changes most pronounced at L4-5 and L5-S1. Patchy left basilar airspace disease atelectasis versus pneumonia TECHNICAL DOCUMENTATION: JOB ID: [id number] Quality ID # [id number]: Final reports with documentation of one or more dose reduction techniques (e.g., Au tomated exposure control, adjustment of the mA and/or kV according to patient size, use of iterative reconstruction technique) 2010 [employer]- All Rights Reserved Reading location - IP/workstation name: [email or web address]
[2018-12-14] MEDS ORDERED: VANCOMYCIN HCL 500 MG in DEXTROSE 5%-WATER 100 ML IV SCH (18:00)
--- NOTE | 2018-12-14 18:00 | PDOC TRANSFER SUMMARY ---
General Admission Date/PCP: 12/10/18 01:32 Camron JOHNSON MD Resuscitation Status: Full Code - Transfer Diagnosis (1) Sepsis Is this a current diagnosis for this admission?: Yes (2) Pyelonephritis Is this a current diagnosis for this admission?: Yes (3) Acute encephalopathy Is this a current diagnosis for this admission?: Yes (4) Acute hypoxemic respiratory failure Is this a current diagnosis for this admission?: Yes (5) End-stage renal disease on hemodialysis Is this a current diagnosis for this admission?: Yes (6) Obstructive sleep apnea Is this a current diagnosis for this admission?: Yes (7) Hydronephrosis Is this a current diagnosis for this admission?: Yes - Transfer Medications Home Medications: Amlodipine Besylate [Norvasc 10 mg Tablet] 5 mg PO DAILYP PRN 12/10/18 Aspirin [Adult Low Dose Aspirin EC] 81 mg PO DAILY 12/10/18 Atorvastatin Calcium [Lipitor 40 mg Tablet] 40 mg PO QHS 12/10/18 Azelastine HCl 1 spray NASL BIDP PRN 12/10/18 Carvedilol [Coreg 25 mg Tablet] 25 mg PO BID 12/10/18 Cholecalciferol (Vitamin D3) [Vitamin D3 1000 Unit Tablet] 1,000 unit PO DAILY 12/10/18 Ergocalciferol (Vitamin D2) [Drisdol 50,000 unit (1.25MG) Capsule] 5,000 unit PO Q28D 12/10/18 Fluticasone Propionate [Flonase Nasal [place] 50 Mcg/[place] 16 gm] 2 spray NASL DAILYP PRN 12/10/18 Insulin Lispro [Humalog Insulin (Lispro) 100 unit/mL] 5 units SQ MEALS 12/10/18 Iron Aspgly,Ps/C/Succinic Acid [Ferrex 150 Plus Capsule] 1 cap PO DAILY 12/10/18 Pantoprazole Sodium [Protonix [address] Tablet] 40 mg PO Q6AM 12/10/18 Ticagrelor [Brilinta 90 mg Tablet] 90 mg PO 12 12/10/18 Tramadol HCl [Ultram 50 mg Tablet] 50 mg PO Q8HP PRN 12/10/18 Transfer Medications: Current Medications Acetaminophen (Tylenol 325 Mg Tablet) 650 mg PO Q4 [place]AT[place]KA Stop: 01/11/19 17:59 Last Admin: 12/14/18 17:27 Dose: 650 mg Documented by: Albuterol (Proair Hfa Inhalation Aerosol 8.5 Gm Mdi) 2 puff IH RTQ4HP PRN PRN Reason: FOR WHEEZING Stop: 01/09/19 18:34 Last Admin: 12/13/18 06:10 Dose: 2 puff Documented by: Albuterol/Ipratropium (Duoneb 3 Ml Ampul) 3 ml NEB RTQ4HP PRN PRN Reason: WHEEZING REFRACTORY TO PROAIR Stop: 01/11/19 11:47 Last Admin: 12/14/18 08:38 Dose: 3 ml Documented by: Aspirin (Ecotrin 81 Mg Ec Tablet) 81 mg PO DAILY [facility] Stop: 01/09/19 13:05 Last Admin: 12/14/18 09:23 Dose: 81 mg Documented by: Atorvastatin Calcium (Lipitor 40 Mg Tablet) 40 mg PO QHS [facility] Stop: 01/09/19 21:59 Last Admin: 12/13/18 21:38 Dose: 40 mg Documented by: Carvedilol (Coreg 12.5 Mg Tablet) 25 mg PO Q12 KATIUSKA Stop: 01/09/19 21:59 Last Admin: 12/14/18 09:22 Dose: 25 mg Documented by: Dextrose (Dextrose Inj 50% Syringe (25 Gm/50 Ml)) 12.5 gm IV PRN PRN; Protocol PRN Reason: FOR BG 50-69 IN ALERT PATIENT Stop: 01/09/19 04:22 Dextrose (Dextrose Inj 50% Syringe (25 Gm/50 Ml)) 25 gm IV PRN PRN; Protocol PRN Reason: PER PROTOCOL Stop: 01/09/19 04:22 Fluticasone Propionate (Flonase Nasal [place] 50 Mcg/[place] 16 Gm) 2 spray NASL DAILYP PRN PRN Reason: ALLERGIES Stop: 01/09/19 13:04 Glucagon (Glucagen Inj 1 Mg Vial) 1 mg IM PRN PRN; Protocol PRN Reason: Evaluate for BG < 70 Stop: 01/09/19 04:22 Glucose (Glutose 40% Gel 15 Gm Tube) 15 gm PO PRN PRN; Protocol PRN Reason: FOR BG 50-69 IN ALERT PATIENT Stop: 01/09/19 04:22 Glucose (Glutose 40% Gel 15 Gm Tube) 30 gm PO PRN PRN; Protocol PRN Reason: FOR BG < 50 IN ALERT PATIENT Stop: 01/09/19 04:22 Hydralazine HCl (Apresoline Inj/Pf 20 Mg/1 Ml Sdv) 10 mg IV Q6HP PRN PRN Reason: SBP ABOVE 160 Stop: 01/13/19 01:29 Aztreonam 0.5 gm/ Dextrose 50 mls @ 100 mls/hr IV Q12@0000,1200 [facility] Stop: 12/20/18 11:59 Last Infusion: 12/14/18 13:03 Dose: Infused Documented by: Levofloxacin/Dextrose (Levaquin Rtu 250 Mg/D5w 50 Ml Premix) 250 mg in 50 mls @ 50 mls/hr IV Q2D@1800 [facility] Stop: 12/22/18 17:59 Vancomycin HCl 500 mg/ (Dextrose) 100 mls @ 66.667 mls/hr IV PDIA [facility] Stop: 12/19/18 17:59 Last Admin: 12/14/18 17:28 Dose: 66.67 mls/hr, 66.67 mls/hr Documented by: Epoetin Larry 5,000 unit/ (Syringe) 0.25 mls @ 0 mls/hr IV .DIALYSIS 12/14/18 PRN PRN Reason: DIALYSIS Stop: 12/14/18 23:59 Insulin Human Lispro (Humalog Insulin 100 Unit/1 Ml 3 Ml Vial) 0 - 12 unit SUBCUT ACHS [facility]; Protocol Stop: 01/09/19 07:59 Last Admin: 12/14/18 16:28 Dose: 2 unit Documented by: Insulin Human Lispro (Humalog Insulin 100 Unit/1 Ml 3 Ml Vial) 5 unit SUBCUT MEALS [facility] Stop: 01/09/19 16:59 Last Admin: 12/14/18 16:29 Dose: 5 unit Documented by: Lidocaine (Lidoderm 5% (700 Mg) Transdermal Patch) 1 patch TP DAILY [facility] Stop: 01/14/19 09:59 Lorazepam (Ativan 1 Mg Tablet) 1 mg PO Q6HP PRN PRN Reason: ANXIETY Stop: 12/18/18 19:57 Last Admin: 12/13/18 21:59 Dose: 1 mg Documented by: Lorazepam (Ativan Inj 2 Mg/1 Ml Vial) 1 mg IV Q4HP PRN PRN Reason: AGITATION Stop: 12/18/18 21:22 Last Admin: 12/11/18 22:40 Dose: 1 mg Documented by: Montelukast Sodium (Singulair 10 Mg Tablet) 10 mg PO QHS [facility] Stop: 01/09/19 21:59 Last Admin: 12/13/18 21:38 Dose: 10 mg Documented by: Ondansetron HCl (Zofran Inj/Pf 4 Mg/2 Ml Sdv) 4 mg IV Q4HP PRN PRN Reason: FOR NAUSEA/VOMITING Stop: 01/10/19 21:23 Pantoprazole Sodium (Protonix [address] Tablet) 40 mg PO Q6AM [place] Stop: 01/10/19 05:59 Last Admin: 12/14/18 05:17 Dose: 40 mg Documented by: Phenazopyridine HCl (Pyridium 200 Mg Tablet) 200 mg PO Q8HP PRN PRN Reason: BLADDER SPASMS Stop: 01/11/19 15:22 Last Admin: 12/12/18 16:45 Dose: 200 mg Documented by: Ticagrelor (Brilinta 90 Mg Tablet) 90 mg PO Q12 [facility] Stop: 01/09/19 21:59 Last Admin: 12/14/18 09:23 Dose: 90 mg Documented by: Tramadol HCl (Ultram 50 Mg Tablet) 50 mg PO Q8HP PRN PRN Reason: FOR PAIN Stop: 12/19/18 11:34 Last Admin: 12/14/18 09:02 Dose: 50 mg Documented by: - Allergies Allergies/Adverse Reactions: Iodinated Contrast- Oral and IV Dye Allergy (Verified 02/26/18 19:34) iodine Allergy (Verified 02/26/18 19:34) Penicillins Allergy (Verified 02/26/18 19:34) Hospital Course Hospital Course: This is a 73 yr old male with a PMH of ESRD on MWF dialysis, IDDM, diastolic heart failure MARK, CAD, bladder CA, prior ureteral stenting and HTN who presented with fever and acute confusion. He had an LP done and a head CT which were unrevealing. He was admitted to the IMCU due to acute encephalopathy. He was started on vanocmycin, Levaquin and aztreonam on the floor. He has penicillin allergy although true reaction is unknown. He became more confused in IMCU and was also noted by RN to be tachycardic and have more crackles on lung exam hence was moved to the ICU and placed on BIPAP. Chest x-ray shows possible left lower lob pneumonia. In the ICU, he was more coherent and oriented today. He was straight cathed and 10 cc of purulent drainage was obtained. His CT of the abdomen/pelvis does show bilateral hydronephrosis and hydroureter. Called [facility] where patient follows up with Urology, Dr. Kwong. He is still on a waitlist for bed placement. Family prefers him going to [facility]. Also called [facility] and they also don't have availability at the moment. Physical Exam Vital Signs: Temp Pulse Resp BP Pulse Ox 98.0 F 72 20 130/47 H 95 12/14/18 16:00 12/14/18 16:00 12/14/18 16:00 12/14/18 16:00 12/14/18 16:00 Intake & Output 12/13/18 12/14/18 12/15/18 06:59 06:59 06:59 Intake Total 1099 437 290 Output Total 1825 0 1010 Balance -726 437 -720 Weight 247 lb 5.738 oz 245 lb 13.047 oz General appearance: PRESENT: no acute distress, well-developed, well-nourished Head exam: PRESENT: atraumatic, normocephalic Eye exam: PRESENT: conjunctiva pink, EOMI, PERRLA. ABSENT: scleral icterus Ear exam: PRESENT: normal external ear exam Mouth exam: PRESENT: moist, tongue midline Neck exam: ABSENT: carotid bruit, JVD, lymphadenopathy, thyromegaly Respiratory exam: PRESENT: clear to auscultation marisol. ABSENT: rales, rhonchi, wheezes Cardiovascular exam: PRESENT: RRR. ABSENT: diastolic murmur, rubs, systolic murmur GI/Abdominal exam: PRESENT: normal bowel sounds, soft. ABSENT: distended, guarding, mass, organolmegaly, rebound, tenderness Rectal exam: PRESENT: deferred Neurological exam: PRESENT: alert, awake, oriented to person, oriented to place, oriented to time, oriented to situation, CN II-XII grossly intact. ABSENT: motor sensory deficit Results Laboratory Results: 12/14/18 08:17 12/14/18 08:17 12/14/18 12/14/18 12/14/18 08:17 08:17 14:45 WBC 4.0 RBC 2.86 L Hgb 9.5 L Hct 27.9 L MCV 97 MCH 33.3 MCHC 34.2 RDW 16.1 H Plt Count 215 Sodium 136.6 L Potassium 5.0 Chloride 98 Carbon Dioxide 22 Anion Gap 17 BUN 62 H Creatinine 10.29 H Est GFR ( Amer) 6 L Est GFR (Non-Af Amer) 5 L Glucose 113 H Calcium 8.3 L Total Bilirubin 0.6 AST 25 ALT 29 Alkaline Phosphatase 69 Total Protein 6.2 L Albumin 3.0 L Urine Color YELLOW Urine Appearance TURBID Urine pH 6.0 Ur Specific [place] 1.017 Urine Protein 100 H Urine Glucose (UA) NEGATIVE Urine Ketones NEGATIVE Urine Blood SMALL H Urine Nitrite NEGATIVE Ur Leukocyte Esterase SMALL H Urine WBC (Auto) >182 Urine RBC (Auto) >182 12/10/18 12/11/18 12/11/18 08:47 20:18 21:08 Creatine Kinase 154 CK-MB (CK-2) 0.85 Troponin I 0.068 0.068 12/12/18 12/12/18 12/12/18 03:09 03:09 10:58 Creatine Kinase 124 120 CK-MB (CK-2) 0.73 Troponin I 0.103 12/12/18 10:58 Creatine Kinase CK-MB (CK-2) 0.74 Troponin I 0.120 Impressions: Head CT 12/10/18 01:10 IMPRESSION: No acute findings. Abdomen/Pelvis CT 12/12/18 00:00 IMPRESSION: Minimal left basilar atelectasis versus pneumonia Post prostatectomy with chronic appearing bilateral hydronephrosis and hydroureter Chest X-Ray 12/13/18 00:00 IMPRESSION: Cannot exclude left lower lobe pneumonia. Lumbar Spine CT 12/14/18 15:26 IMPRESSION: Degenerative disc changes most pronounced at L4-5 and L5-S1. Patchy left basilar airspace disease atelectasis versus pneumonia
--- NOTE | 2018-12-14 19:40 | PDOC PROGRESS REPORT ---
Subjective Progress Note for:: 12/14/18 Reason For Visit: Patient seen earlier today on dialysis. He is undergoing dialysis without any issues. Vital signs are stable. He is on no pressor agents. Patient is lethargic but easily arousable and answers to questions. He still has having intermittent confusional state as per discussions done with the treating nurse. Labs and medications were reviewed. Still awaiting transfer to tertiary [facility]. Continuing on antibiotics. Has intermittent low back pains. Physical Exam Vital Signs: Temp Pulse Resp BP Pulse Ox 98.1 F 72 16 111/47 L 99 12/14/18 19:29 12/14/18 16:00 12/14/18 18:00 12/14/18 17:54 12/14/18 18:00 Intake & Output 12/13/18 12/14/18 12/15/18 06:59 06:59 06:59 Intake Total 1099 437 290 Output Total 1825 0 1010 Balance -726 437 -720 Weight 112.2 kg 111.5 kg 111.5 kg General appearance: PRESENT: no acute distress, cooperative Neck exam: ABSENT: lymphadenopathy, meningismus, tenderness, thyromegaly, tracheal deviation Respiratory exam: PRESENT: clear to auscultation marisol. ABSENT: crackles Cardiovascular exam: PRESENT: +S1, +S2 GI/Abdominal exam: PRESENT: normal bowel sounds, soft. ABSENT: organomegaly, te nderness Extremities exam: ABSENT: pedal edema Neurological exam: PRESENT: alert, awake, oriented to person, oriented to place. ABSENT: oriented to time Psychiatric exam: PRESENT: appropriate affect Skin exam: ABSENT: erythema, mottled, rash Results Laboratory Results: 12/14/18 08:17 12/14/18 08:17 12/14/18 12/14/18 12/14/18 08:17 08:17 14:45 WBC 4.0 RBC 2.86 L Hgb 9.5 L Hct 27.9 L MCV 97 MCH 33.3 MCHC 34.2 RDW 16.1 H Plt Count 215 Sodium 136.6 L Potassium 5.0 Chloride 98 Carbon Dioxide 22 Anion Gap 17 BUN 62 H Creatinine 10.29 H Est GFR ( Amer) 6 L Est GFR (Non-Af Amer) 5 L Glucose 113 H Calcium 8.3 L Total Bilirubin 0.6 AST 25 ALT 29 Alkaline Phosphatase 69 Total Protein 6.2 L Albumin 3.0 L Urine Color YELLOW Urine Appearance TURBID Urine pH 6.0 Ur Specific [place] 1.017 Urine Protein 100 H Urine Glucose (UA) NEGATIVE Urine Ketones NEGATIVE Urine Blood SMALL H Urine Nitrite NEGATIVE Ur Leukocyte Esterase SMALL H Urine WBC (Auto) >182 Urine RBC (Auto) >182 12/10/18 12/11/18 12/11/18 08:47 20:18 21:08 Creatine Kinase 154 CK-MB (CK-2) 0.85 Troponin I 0.068 0.068 12/12/18 12/12/18 12/12/18 03:09 03:09 10:58 Creatine Kinase 124 120 CK-MB (CK-2) 0.73 Troponin I 0.103 12/12/18 10:58 Creatine Kinase CK-MB (CK-2) 0.74 Troponin I 0.120 Impressions: Head CT 12/10/18 01:10 IMPRESSION: No acute findings. Abdomen/Pelvis CT 12/12/18 00:00 IMPRESSION: Minimal left basilar atelectasis versus pneumonia Post prostatectomy with chronic appearing bilateral hydronephrosis and hydroureter Chest X-Ray 12/13/18 00:00 IMPRESSION: Cannot exclude left lower lobe pneumonia. Lumbar Spine CT 12/14/18 15:26 IMPRESSION: Degenerative disc changes most pronounced at L4-5 and L5-S1. Patchy left basilar airspace disease atelectasis versus pneumonia Assessment & Plan - Diagnosis (1) ESRF (end stage renal failure) Is this a current diagnosis for this admission?: Yes Plan: Undergoing dialysis without any issues. Vital signs are stable. Dialysis is being supervised to ensure safe and smooth procedure. Plan to remove 1-1.5 L as tolerated. Dialysis orders were reviewed with the treating dialysis nurse.. (2) Altered mental status Qualifiers: Altered mental status type: disorientation Qualified Code(s): R41.0 - Disorientation, unspecified Is this a current diagnosis for this admission?: Yes Plan: Clinically improved. However he is not back to his baseline. (3) Fever Qualifiers: Fever type: unspecified Qualified Code(s): R50.9 - Fever, unspecified Is this a current diagnosis for this admission?: Yes Plan: Of unknown origin. Patient currently on Vanc/Azobactam. Cultures so far negative.He has a history of chronic bilateral hydronephrosis. A Ghosh catheter inserted today revealed 10 cc of what looked like pus material according to the nurse. Has history of bladder cancer as well as high ureteral obstruction seen on CT scan and he needs to be evaluated by urology. This would be another indication for transfer to a tertiary care center. Discussed with Dr. Andrews/hospitalist. (4) Generalized weakness Plan: Status quo. (5) Diabetes mellitus Qualifiers: Diabetes mellitus type: type 2 Diabetes mellitus usp insulin use: with intermediate accountant use Diabetes mellitus complication status: with kidney complications Diabetes mellitus complication detail: with chronic kidney disease Chronic kidney disease stage: stage 3 (moderate) Qualified Code(s): E11.22 - Type 2 diabetes mellitus with diabetic chronic kidney disease Plan: Good control in the hospital now. (6) History of bladder cancer Is this a current diagnosis for this admission?: Yes Plan: Status quo.History of chronic bilateral hydronephrosis. Reviewed CT scans from 2018. (7) Hydronephrosis Is this a current diagnosis for this admission?: Yes Plan: Chronic bilateral. However given his present history of fever needs urology evaluation. ? possible bilateral nephrostomy tubes.
[2018-12-14] MEDS: ATORVASTATIN CALCIUM 40 MG TABLET PO SCH (21:42)
[2018-12-14] MEDS: MONTELUKAST SODIUM 10 MG TABLET PO SCH (21:43)
[2018-12-14] MEDS: FENTANYL CITRATE INJ/PF 100 MCG/2 ML AMPUL IV PRN (21:57)
[2018-12-15] MEDS: ACETAMINOPHEN 325 MG TABLET PO SCH ×6 (01:47→22:12)
[2018-12-15] MEDS: TRAMADOL HCL 50 MG TABLET PO PRN ×2 (01:48→10:29)
[2018-12-15] MEDS: FENTANYL CITRATE INJ/PF 100 MCG/2 ML AMPUL IV PRN (03:57)
[2018-12-15] MEDS: PANTOPRAZOLE SODIUM 40 MG TABLET.DR PO SCH (06:06)
[2018-12-15] MEDS: INSULIN LISPRO 100 UNIT/ML 3 ML VIAL SUBCUT SCH ×7 (09:02→22:13)
[2018-12-15] MEDS: LIDOCAINE 5% (700 MG) TRANSDERMAL ADH..PATCH TP SCH (10:28)
[2018-12-15] MEDS: CARVEDILOL 12.5 MG TABLET PO SCH ×2 (10:28→22:12)
[2018-12-15] MEDS: TICAGRELOR 90 MG TABLET PO SCH ×2 (10:29→22:12)
[2018-12-15] MEDS: ASPIRIN 81 MG TABLET, ENT COATED PO SCH (10:29)
[2018-12-15] MEDS: AZTREONAM 0.5 GM in DEXTROSE 5%-WATER 50 ML IV SCH (15:06)
--- NOTE | 2018-12-15 17:31 | Progress Note ---
Provider Note Provider Note: No acute event overnight. Patient's mentation is now at baseline and he is very coherent and is AO x4. He was straight cathed again this morning and gross pus was coming out of the catheter. He has been accepted at [facility] for urologic intervention where he closely follows up with Dr. Kwong. Called [facility] and updated about patient status and they say they will likely get an IMCU bed for him today.
[2018-12-15] MEDS ORDERED: LEVOFLOXACIN 250 MG/D5W RTU 250 MG/50 ML RTUPB IV SCH (18:00)
[2018-12-15] MEDS ORDERED: TICAGRELOR 90 MG TABLET ONE (21:56)
[2018-12-15] MEDS: ATORVASTATIN CALCIUM 40 MG TABLET PO SCH (22:10)
[2018-12-15] MEDS: MONTELUKAST SODIUM 10 MG TABLET PO SCH (22:10)
[2018-12-16] MEDS: AZTREONAM 0.5 GM in DEXTROSE 5%-WATER 50 ML IV SCH ×2 (00:19→11:25)
[2018-12-16] MEDS: TRAMADOL HCL 50 MG TABLET PO PRN (00:21)
[2018-12-16] MEDS: ACETAMINOPHEN 325 MG TABLET PO SCH ×3 (01:20→11:26)
[2018-12-16] MEDS ORDERED: EPOETIN ALFA INJ 20000 UNIT/1 ML VIAL (RENAL) IV PRN (05:00)
[2018-12-16] MEDS: PANTOPRAZOLE SODIUM 40 MG TABLET.DR PO SCH (05:36)
[2018-12-16 06:25] LABS: HEMATOCRIT 28.9 % (37.9-51.0); HEMOGLOBIN 9.8 g/dL (13.5-17.0); MEAN CORPUSCULAR HEMOGLOBIN 32.6 pg (27.0-33.4); MEAN CORPUSCULAR HGB CONC 33.9 g/dL (32.0-36.0); MEAN CORPUSCULAR VOLUME 96 fl (80-97); PLATELET COUNT 203 10^3/uL (150-450); RED CELL DISTRIBUTION WIDTH 16.1 % (11.5-14.0); WHITE BLOOD COUNT 4.2 10^3/uL (4.0-10.5)
[2018-12-16 06:51] LABS: ANION GAP 15 (5-19); BLOOD UREA NITROGEN 63 mg/dL (7-20); CALCIUM 8.2 mg/dL (8.4-10.2); CARBON DIOXIDE 28 mmol/L (22-30); CHLORIDE 95 mmol/L (98-107); GLUCOSE 92 mg/dL (75-110); SODIUM 138.4 mmol/L (137-145)
[2018-12-16 06:55] LABS: VANCOMYCIN,TROUGH 19.7 ug/mL (5.0-20.0)
[2018-12-16] MEDS: INSULIN LISPRO 100 UNIT/ML 3 ML VIAL SUBCUT SCH ×4 (08:25→11:27)
[2018-12-16] MEDS ORDERED: EPOETIN ALFA 10,000 UNIT in SYRINGE, DISPOSABLE, 1 EACH IV PRN (08:50)
[2018-12-16] MEDS: ASPIRIN 81 MG TABLET, ENT COATED PO SCH (11:26)
[2018-12-16] MEDS: CARVEDILOL 12.5 MG TABLET PO SCH (11:26)
[2018-12-16] MEDS: TICAGRELOR 90 MG TABLET PO SCH (11:27)
[2018-12-16] MEDS: LIDOCAINE 5% (700 MG) TRANSDERMAL ADH..PATCH TP SCH (11:29)
--- NOTE | 2018-12-16 14:20 | Progress Note ---
Provider Note Provider Note: No acute event overnight. Patient's mentation is now at baseline and he is very coherent and is AO x4. 12/15: He was straight cathed again this morning and gross pus was coming out of the catheter. He has been accepted at [facility] for urologic intervention where he closely follows up with Dr. Kwong. Called [facility] and updated about patient status and they say they will likely get an IMCU bed for him today. 12/16: Patient was seen comfortable while getting dialysis. There is still noticeable purulent material on the Ghosh although it has decreased in amount compared to yesterday. Called [facility] and discussed case again with mortgage operations manager hospitalist. [facility] supervisor fur floor worker has also expressed they will get him a bed today.
[2018-12-16 15:13] VITALS: BP 140/53
--- NOTE | 2018-12-16 16:45 | PDOC PROGRESS REPORT ---
Subjective Progress Note for:: 12/16/18 Reason For Visit: Patient seen today on dialysis. He is undergoing dialysis without any issues. Vital signs are stable. He generally feels a whole lot better since Ghosh catheter was introduced and he is draining pus like material. No complaints of any fever or chills. He still a bit confused but nothing like when he came in. Dialysis orders were reviewed with the treating dialysis nurse. Labs and medications were reviewed. Still awaiting bed for transfer to [facility]. Physical Exam Vital Signs: Temp Pulse Resp BP Pulse Ox 97.9 F 71 18 140/53 H 98 12/16/18 14:54 12/16/18 12:00 12/16/18 14:54 12/16/18 14:54 12/16/18 15:00 Intake & Output 12/15/18 12/16/18 12/17/18 06:59 06:59 06:59 Intake Total 440 150 290 Output Total 1010 10 400 Balance -570 140 -110 Weight 111.5 kg 113.1 kg General appearance: PRESENT: no acute distress Respiratory exam: PRESENT: clear to auscultation marisol. ABSENT: crackles Cardiovascular exam: PRESENT: +S1, +S2 GI/Abdominal exam: PRESENT: normal bowel sounds, soft. ABSENT: organomegaly, tenderness Extremities exam: ABSENT: pedal edema Neurological exam: PRESENT: alert, awake, oriented to person, oriented to place. ABSENT: oriented to time Results Laboratory Results: 12/16/18 06:20 12/16/18 06:20 12/16/18 12/16/18 12/16/18 06:20 06:20 06:20 WBC 4.2 RBC 3.00 L Hgb 9.8 L Hct 28.9 L MCV 96 MCH 32.6 MCHC 33.9 RDW 16.1 H Plt Count 203 Sodium 138.4 Potassium 4.0 Chloride 95 L Carbon Dioxide 28 Anion Gap 15 BUN 63 H Creatinine 9.68 H Est GFR ( Amer) 6 L Est GFR (Non-Af Amer) 5 L Glucose 92 Calcium 8.2 L Magnesium 2.3 12/14/18 14:45 Catheterized Urine Urine Culture - Final Yeast, Not Viola Albicans 12/10/18 12/11/18 12/11/18 08:47 20:18 21:08 Creatine Kinase 154 CK-MB (CK-2) 0.85 Troponin I 0.068 0.068 12/12/18 12/12/18 12/12/18 03:09 03:09 10:58 Creatine Kinase 124 120 CK-MB (CK-2) 0.73 Troponin I 0.103 12/12/18 10:58 Creatine Kinase CK-MB (CK-2) 0.74 Troponin I 0.120 Impressions: Head CT 12/10/18 01:10 IMPRESSION: No acute findings. Abdomen/Pelvis CT 12/12/18 00:00 IMPRESSION: Minimal left basilar atelectasis versus pneumonia Post prostatectomy with chronic appearing bilateral hydronephrosis and hydroureter Chest X-Ray 12/13/18 00:00 IMPRESSION: Cannot exclude left lower lobe pneumonia. Lumbar Spine CT 12/14/18 15:26 IMPRESSION: Degenerative disc changes most pronounced at L4-5 and L5-S1. Patchy left basilar airspace disease atelectasis versus pneumonia Assessment & Plan - Diagnosis (1) ESRF (end stage renal failure) Is this a current diagnosis for this admission?: Yes Plan: Undergoing dialysis without any issues. Vital signs are stable. Dialysis is being supervised to ensure safe and smooth procedure. Plan to remove 1-1.5 L as tolerated. Dialysis orders were reviewed with the treating dialysis nurse.. (2) Altered mental status Qualifiers: Altered mental status type: disorientation Qualified Code(s): R41.0 - Disorientation, unspecified Is this a current diagnosis for this admission?: Yes Plan: Clinically improved. However he is not back to his baseline.He looks much better since we introduced a Ghosh catheter and began to drain pus like material. (3) Fever Qualifiers: Fever type: unspecified Qualified Code(s): R50.9 - Fever, unspecified Is this a current diagnosis for this admission?: Yes Plan: Currently afebrile. On antibiotics. (4) Generalized weakness Plan: Status quo. (5) Diabetes mellitus Qualifiers: Diabetes mellitus type: type 2 Diabetes mellitus termite inspector insulin use: with intermediate use Diabetes mellitus complication status: with kidney complications Diabetes mellitus complication detail: with chronic kidney disease Chronic kidney disease stage: stage 3 (moderate) Qualified Code(s): E11.22 - Type 2 diabetes mellitus with diabetic chronic kidney disease Plan: Good control in the hospital now. (6) History of bladder cancer Is this a current diagnosis for this admission?: Yes Plan: Status quo.History of chronic bilateral hydronephrosis. Reviewed CT scans from 2018. (7) Hydronephrosis Is this a current diagnosis for this admission?: Yes Plan: Chronic bilateral. However given his present history of fever needs urology evaluation. ? possible bilateral nephrostomy tubes.Awaiting transfer to [facility]/urology.
--- NOTE | 2018-12-17 13:16 | EKG REPORT ---
SEVERITY:- ABNORMAL ECG - SINUS OR ECTOPIC ATRIAL RHYTHM VENTRICULAR PREMATURE COMPLEX INCOMPLETE RIGHT BUNDLE BRANCH BLOCK : Confirmed by: Joellen Palencia 17-Dec-2018 13:15:27
== END 2018-12-16 15:13 | disposition short-term general hospital (02) | DRG 871 ==
LOC: ER 19:04 → EH 12-10 01:32 → 3S 12-10 12:28 → ICU 12-13 15:13
PROVIDERS: ADMIT Internal Medicine; ATTEND Internal Medicine
PROC: 009U3ZX Drainage of Spinal Canal, Percutaneous Approach, Diagnostic (ICD-10-PCS; 2018-12-09)
PROC: 5A1D70Z Performance of Urinary Filtration, Intermittent, Less than 6 Hours Per Day (ICD-10-PCS; principal; 2018-12-12)
PROC: 5A09357 Assistance with Respiratory Ventilation, Less than 24 Consecutive Hours, Continuous Positive Airway Pressure (ICD-10-PCS; 2018-12-14)
DX: A41.9 Sepsis, unspecified organism (principal); J96.01 Acute respiratory failure with hypoxia; G93.41 Metabolic encephalopathy; I50.33 Acute on chronic diastolic (congestive) heart failure; N18.6 End stage renal disease; I13.2 Hypertensive heart and chronic kidney disease with heart failure and with stage 5 chronic kidney disease, or end stage renal disease; N13.30 Unspecified hydronephrosis; N25.81 Secondary hyperparathyroidism of renal origin; N12 Tubulo-interstitial nephritis, not specified as acute or chronic; E11.22 Type 2 diabetes mellitus with diabetic chronic kidney disease; D63.1 Anemia in chronic kidney disease; E66.01 Morbid (severe) obesity due to excess calories; I25.10 Atherosclerotic heart disease of native coronary artery without angina pectoris; E78.00 Pure hypercholesterolemia, unspecified; F43.10 Post-traumatic stress disorder, unspecified; F32.9 Major depressive disorder, single episode, unspecified; G47.33 Obstructive sleep apnea (adult) (pediatric); K21.9 Gastro-esophageal reflux disease without esophagitis; M19.90 Unspecified osteoarthritis, unspecified site; F40.240 Claustrophobia; I44.0 Atrioventricular block, first degree; F41.0 Panic disorder [episodic paroxysmal anxiety]; M54.5 Low back pain; G89.29 Other chronic pain; Z99.2 Dependence on renal dialysis; Z85.46 Personal history of malignant neoplasm of prostate; Z85.51 Personal history of malignant neoplasm of bladder; Z79.82 Long term (current) use of aspirin; Z79.4 Long term (current) use of insulin; Z88.0 Allergy status to penicillin; Z91.041 Radiographic dye allergy status; Z68.37 Body mass index [BMI] 37.0-37.9, adult; Z85.72 Personal history of non-Hodgkin lymphomas; Z85.828 Personal history of other malignant neoplasm of skin; Z95.5 Presence of coronary angioplasty implant and graft; Z87.891 Personal history of nicotine dependence; Z82.49 Family history of ischemic heart disease and other diseases of the circulatory system; Z98.1 Arthrodesis status
CPT/HCPCS: 36415; 36600; 70450; 71045; 72131; 74176; 80048; 80053; 80170; 80202; 81001; 82140; 82550; 82553; 82607; 82803; 82945; 82962; 83605; 83735; 84157; 84443; 84484; 85025; 85027; 85610; 87015; 87040; 87070; 87086; 87116; 87205; 87206; 87252; 87804; 89050; 93005; 93010; 93970; 94640; 94660; 99285; J0360; J0692; J1580; J1815; J1940; J1956; J2060; J2270; J2405; J3010; J3370; J3490; J7050; J7060; J7620; Q4081

== ENCOUNTER 2019-03-28 09:30 | Day surgery (SDC) | payer MEDICARE, OTHER ==
[~2019-03-28 09:30] MED LIST: BUPIVACAINE HCL 0.75% INJ/PF (7.5 MG/1 ML) 10 ML SDV OS PRN; KETOROLAC TROMETHAMINE 0.45% 4 DROP/0.4 ML DROPERETTE OS PRN; LIDOCAINE 1% INJ-PF (10 MG/ML) 30 ML SDV ONE; LIDOCAINE 4% INJ/PF (40 MG/ML) 5 ML AMPUL OS PRN; MIDAZOLAM 2 MG/2 ML INJ ONE
[2019-03-28] MEDS: CYCLOPENTOLATE 0.2%/PHENYLEPHRINE 1% OPH SOLN 2 ML OS PRN ×3 (10:08→10:48)
[2019-03-28] MEDS: TROPICAMIDE 1% OPH SOLN 3 ML OS PRN ×3 (10:08→10:48)
[2019-03-28] MEDS: BESIFLOXACIN HCL 0.6% OPH SUSP 5 ML BOTTLE OS PRN ×4 (10:09→11:35)
[2019-03-28] MEDS: TETRACAINE HCL 0.5% OPH SOLN 0.6 ML DROPERETTE OS PRN ×3 (10:10→11:05)
[2019-03-28] MEDS ORDERED: FENTANYL CITRATE INJ/PF 100 MCG/2 ML AMPUL ONE (10:49)
[2019-03-28] MEDS: LIDOCAINE 1%/PHENYLEPHRINE 1.5% 1 ML VIAL ONE ×2 (11:24)
[2019-03-28] MEDS: EPINEPHRINE INJ/PF 1 MG/1 ML AMPULE ONE ×2 (11:24)
[2019-03-28] MEDS: CHONDR SU A NA/HYALUR INTRAOC KIT (SURGICARE) ONE ×2 (11:24)
[2019-03-28] MEDS: DORZOLAMIDE HCL 2%/TIMOLOL MALEAT 0.5% OPH SOLN 10 ML OS PRN ×2 (11:35)
--- NOTE | 2019-03-28 12:10 | [facility] OPERATIVE REPORT E ---
[facility] Operative Report NAME: BERNADETTE BURGOS AGE: 73Y DATE OF SURGERY: 03/28/2019 ROOM: PREOPERATIVE DIAGNOSIS: CATARACT, LEFT EYE. POSTOPERATIVE DIAGNOSIS: CATARACT, LEFT EYE. PROCEDURE PERFORMED: PHACOEMULSIFICATION WITH POSTERIOR CHAMBER INTRAOCULAR LENS, LEFT EYE. SURGEON: ELLYN AZUL MD ANESTHESIA: TOPICAL WITH MAC. INDICATIONS FOR SURGERY: PROCEDURE: The patient was brought to the Operating Room and placed on the operative table. Following tetracaine drops, topical anesthesia was administered. This consisted of instrument wipe pledgets soaked in a solution of 4% Xylocaine mixed with 0.75% Marcaine in a 1:2 ratio. A 2 x 1 cm pledget was placed in the superior fornix. A 1 x 1 cm pledget was placed in the inferior fornix. The eye was patched shut for 5 minutes. The patch was removed. The eye was sterilely prepped and draped in the usual manner. Lid speculum was placed in the eye. The pledgets were removed. 4-0 black silk sutures were placed around the superior and the inferior rectus muscles to be used as traction. A conjunctival peritomy was made at the 10 o'clock position. Hemostasis was obtained with bipolar cautery. A posterior limbal groove was created using a crescent knife and dissected anteriorly towards the cornea. A sharp point blade was used to create a paracentesis site at the 2 o'clock position. A 2.4 mm keratome was used to enter the anterior chamber through the groove. Viscoelastic was injected into the anterior chamber. An anterior capsulotomy was performed using Utrata forceps in a capsulorrhexis fashion. Hydrodissection and hydrodelineation were performed. Phacoemulsification was performed in [id number] technique. A total of 5.17 CDE phaco time was used. Following this, the I/A unit was used to remove residual cortex. Viscoelastic was injected into the capsular bag. Intraocular lens model [id number], 18.0 diopters, serial number [id number] was placed in the capsular bag. The I/A unit was used to remove residual viscoelastic. The wound was seen to be watertight under high and low pressure, and no sutures were placed. The intraocular lens was well centered. The pressure was adjusted in the eye to normal pressure. The 4-0 black silk sutures and lid speculum were removed. The eye was shielded after Besivance drops were placed. The patient tolerated the procedure well and was sent to the Recovery Room in good condition. A drop of Cosopt was placed in the eye at the end of surgery and 0.2 mL of phenylephrine, lidocaine was injected in the eye following the incision. DICTATING PHYSICIAN: ELLYN AZUL M.D. DICTATING PHYSICIAN: ELLYN AZUL M.D. [id number] PHY#: [id number] ID: [id number] JOB#: [id number] ACCT: [id number] cc:ELLYN AZUL M.D. >
--- NOTE | 2019-03-28 12:10 | [facility] DISCHARGE SUMMARY E ---
[facility] Discharge Summary NAME: BERNADETTE BURGOS AGE: 73Y ADMITTED: 03/28/2019 DISCHARGED: 03/28/2019 FINAL DIAGNOSIS: CATARACT, LEFT EYE HOSPITAL COURSE: The patient is a 73-year-old gentleman who underwent uneventful cataract extraction with intraocular lens implant, left eye on 03/28/2019. He will be discharged to home. He is instructed to resume preoperative medications, take Tylenol as needed for discomfort, to keep his eye shielded, to use PROLENSA, Besivance, and Durezol at 3 p.m. and 8 p.m., and to follow up in my office in 1 day. DICTATING PHYSICIAN: ELLYN AZUL M.D. [id number] PHY#: [id number] ID: [id number] JOB#: [id number] ACCT: [id number] cc:ELLYN AZUL M.D. >
== END 2019-03-28 12:20 | disposition home or self-care (01) ==
LOC: SC 09:30
PROVIDERS: ATTEND Ophthalmology
DX: H25.813 Combined forms of age-related cataract, bilateral (principal); H57.03 Miosis; E11.3293 Type 2 diabetes mellitus with mild nonproliferative diabetic retinopathy without macular edema, bilateral; H40.013 Open angle with borderline findings, low risk, bilateral; H52.4 Presbyopia; I25.2 Old myocardial infarction; D64.9 Anemia, unspecified; Z79.4 Long term (current) use of insulin; I12.9 Hypertensive chronic kidney disease with stage 1 through stage 4 chronic kidney disease, or unspecified chronic kidney disease; E11.22 Type 2 diabetes mellitus with diabetic chronic kidney disease; N18.4 Chronic kidney disease, stage 4 (severe); Z85.46 Personal history of malignant neoplasm of prostate; Z85.51 Personal history of malignant neoplasm of bladder; Z79.899 Other long term (current) drug therapy
CPT/HCPCS: 66984; 82962; V2632; J2250; J3490 ×3; A9270; J0171; J3010; J2370; 142

== ENCOUNTER 2019-04-20 17:57 | Emergency (ER) | payer MEDICARE, OTHER ==
[2019-04-20] MEDS ORDERED: ASPIRIN 81 MG TABLET, CHEWABLE PO ONE (18:32)
[2019-04-20 19:14] LABS: ABSOLUTE EOSINOPHILS # (AUTO) 0.1 10^3/uL (0.0-0.6); ABSOLUTE LYMPHOCYTES (AUTO) 1.2 10^3/uL (0.5-4.7); ABSOLUTE MONOCYTES (AUTO) 0.5 10^3/uL (0.1-1.4); BASOPHILS % (AUTO) 0.6 % (0-2); EOSINOPHILS % (AUTO) 1.4 % (0-6); HEMATOCRIT 37.2 % (37.9-51.0); HEMOGLOBIN 12.3 g/dL (13.5-17.0); LYMPHOCYTES % (AUTO) 16.9 % (13-45); MEAN CORPUSCULAR HEMOGLOBIN 30.8 pg (27.0-33.4); MEAN CORPUSCULAR VOLUME 93 fl (80-97); MONOCYTES % (AUTO) 7.5 % (3-13); PLATELET COUNT 243 10^3/uL (150-450); RED BLOOD COUNT 3.99 10^6/uL (4.35-5.55); RED CELL DISTRIBUTION WIDTH 15.7 % (11.5-14.0); SEGMENTED NEUTROPHILS % (AUTO) 73.6 % (42-78); TOTAL CELLS COUNTED % (AUTO) 100 %; WHITE BLOOD COUNT 6.8 10^3/uL (4.0-10.5)
[2019-04-20 19:39] LABS: ALBUMIN 3.7 g/dL (3.5-5.0); ALKALINE PHOSPHATASE 165 U/L (38-126); ANION GAP 11 (5-19); ASPARTATE AMINO TRANSFERASE 16 U/L (17-59); BILIRUBIN,DIRECT 0.4 mg/dL (0.0-0.4); BILIRUBIN,TOTAL 0.5 mg/dL (0.2-1.3); BLOOD UREA NITROGEN 35 mg/dL (7-20); CALCIUM 8.8 mg/dL (8.4-10.2); CARBON DIOXIDE 32 mmol/L (22-30); CHLORIDE 94 mmol/L (98-107); CREATINE KINASE 78 U/L (55-170); GLUCOSE 313 mg/dL (75-110); POTASSIUM 4.8 mmol/L (3.6-5.0); TOTAL PROTEIN 6.9 g/dL (6.3-8.2)
--- NOTE | 2019-04-20 19:49 | RADIOLOGY REPORT (SQ) ---
EXAM DESCRIPTION: CHEST SINGLE VIEW COMPLETED DATE/TIME: 04/20/2019 7:18 pm REASON FOR STUDY: bed 10 cp COMPARISON: 12/13/2018 EXAM PARAMETERS: NUMBER OF VIEWS: One view. TECHNIQUE: Single frontal radiographic view of the chest acquired. RADIATION DOSE: NA LIMITATIONS: None. FINDINGS: LUNGS AND PLEURA: Stable right side pulmonary nodule. No pulmonary infiltrate or pleural effusion. MEDIASTINUM AND HILAR STRUCTURES: No masses. Contour normal. HEART AND VASCULAR STRUCTURES: Cardiomegaly. No isaac pulmonary edema. BONES: No acute findings. HARDWARE: None in the chest. OTHER: No other significant finding. IMPRESSION: Cardiomegaly without pulmonary edema. Stable pulmonary nodule, likely granuloma. TECHNICAL DOCUMENTATION: JOB ID: [id number] [facility]- All Rights Reserved Reading location - IP/workstation name: [email or web address]
[2019-04-20 19:50] LABS: CREATINE KINASE MB 4.78 ng/mL (<4.55)
[2019-04-20 19:56] LABS: TROPONIN I 0.465 ng/mL
[2019-04-20] MEDS ORDERED: MORPHINE SULFATE 10 MG/ML INJ IV ONE (20:24)
[2019-04-20] MEDS ORDERED: NITROGLYCERIN 0.4 MG/TAB 25 TAB/BOTTLE SL ONE ×2 (20:24→23:39)
--- NOTE | 2019-04-20 20:30 | ER Document Report ---
ED Cardiac - General Chief Complaint: Chest Pain Stated Complaint: CHEST PAIN Time Seen by Provider: 04/20/19 20:03 Primary Care Provider: IGNACIA SHORT MD [Primary Care Provider] - Follow up as needed Notes: 73-year-old male with history of an STEMI in February 2018 status post stent, insulin-dependent diabetes mellitus, end-stage renal disease with dialysis on Wednesday, hypertension presents to the emergency department with chief complaint of chest pain. Patient states that the pain has been lingering for about 2 weeks and it got acutely worse today. said her rescue swell came out 2 weeks ago and assessed him and asked him he wanted to come to the hospital and they declined. Patient says that the pain was severe enough today (he rated 7/10) that was central with radiating to his left arm, he has some associated nausea as well. He denied diaphoresis or dyspnea on exertion. Patient has been going to dialysis regularly and last went yesterday. was concerned so she brought him in for assessment. Patient is seen out of [place] for cardiology and his ram press operator is Dr. Stapleton. TRAVEL OUTSIDE OF THE [place] IN LAST 30 DAYS: No - Related Data Allergies/Adverse Reactions: doxycycline Allergy (Severe, Verified 04/05/19 06:11) RASH Penicillins Allergy (Mild, Verified 04/05/19 06:11) MILD RASH Iodinated Contrast Media Adverse Reaction (Intermediate, Verified 04/05/19 06:11) RASH, HOT FLUSHED SENSATION iodine Adverse Reaction (Intermediate, Verified 04/05/19 06:11) HOT FLUSHED SENSATION Past Medical History - Social History Smoking Status: Unknown if Ever Smoked Family History: CAD, Hypertension Patient has suicidal ideation: No Patient has homicidal ideation: No - Past Medical History Cardiac Medical History: Reports: Hx Congestive Heart Failure - diastolic, Hx Coronary Artery Disease, Hx Heart Attack - 2YRS AGO, Hx Hypercholesterolemia, Hx Hypertension - HX OF /NO CURRENT MEDS Denies: Hx DVT, Hx Pulmonary Embolism Pulmonary Medical History: Reports: Hx Sleep Apnea - He is intolerant to wearing CPAP. Denies: Hx Asthma, Hx Bronchitis, Hx COPD, Hx Pneumonia Neurological Medical History: Denies: Hx Cerebrovascular Accident, Hx Migraine, Hx Seizures Endocrine Medical History: Reports: Hx Diabetes Mellitus Type 1, Hx Diabetes Kaur litus Type 2. Denies: Hx Hyperthyroidism, Hx Hypothyroidism Renal/ Medical History: Reports: Hx End Stage Renal Disease. Denies: Hx Peritoneal Dialysis Malignancy Medical History: Reports Hx Lymphoma, Reports Hx Prostate Cancer, Reports Hx Skin Cancer GI Medical History: Reports: Hx Gastroesophageal Reflux Disease. Denies: Hx Cirrhosis, Hx Hepatitis, Hx Hiatal Hernia, Hx Ulcer Musculoskeletal Medical History: Reports Hx Arthritis Skin Medical History: Denies Hx Eczema, Denies Hx Psoriasis Psychiatric Medical History: Reports: Hx Depression, Hx Post Traumatic Stress Disorder Infectious Medical History: Reports: Hx MRSA. Denies: Hx Hepatitis Past Surgical History: Reports: Hx Cardiac Catheterization, Hx Coronary Stent, Hx Genitourinary Surgery - Prostate removed, Hx Orthopedic Surgery - He has had C-spine surgery, and low back surgery., Hx Urinary Tract Surgery - bladder, Hx Vascular Surgery - left upper arm dialysis fistula, Other - Excision of skin cancers,Total prostatectomy,Bladder surgery 3,Lipoma surg. Denies: Hx Open Heart Surgery, Hx Pacemaker - Immunizations Hx Diphtheria, Pertussis, Tetanus Vaccination: Yes Hx Pneumococcal Vaccination: 06/06/11 Review of Systems - Review of Systems Constitutional: See HPI EENT: No symptoms reported Cardiovascular: See HPI Respiratory: See HPI Gastrointestinal: See HPI Genitourinary: No symptoms reported Male Genitourinary: No symptoms reported Musculoskeletal: No symptoms reported Skin: No symptoms reported Hematologic/Lymphatic: No symptoms reported Neurological/Psychological: No symptoms reported Physical Exam - Vital signs Vitals: Temp Pulse Resp BP Pulse Ox 97.8 F 91 18 126/112 H 96 04/20/19 18:17 04/20/19 18:17 04/20/19 18:17 04/20/19 18:17 04/20/19 18:17 - Notes Notes: PHYSICAL EXAMINATION: Reviewed vital signs and charting by RN GENERAL: Alert, interacts well. No acute distress. HEAD: Normocephalic, atraumatic. EYES: Pupils equal and round. Extraocular movements intact. ENT: Oral mucosa moist, tongue midline. NECK: Full range of motion. Trachea midline. LUNGS: Clear to auscultation bilaterally, no wheezes, rales, or rhonchi. No respiratory distress. HEART: Regular rate and rhythm. No murmur ABDOMEN: soft, non-tender. + distention. Bowel sounds present EXTREMITIES: Moves all 4 extremities spontaneously. No edema, No cyanosis. PSYCH: Normal affect, normal mood. SKIN: Warm, dry, normal turgor. No rashes or lesions noted. Course - Re-evaluation Re-evalutation: 04/20/19 20:29 Patient is not in extremis. EKG mostly unchanged from March 30, 2019 it showed a sinus rhythm with a rate of 93, QTC of 518, no ST elevations in the precordial leads, no ST depressions consistent with an ischemic pattern. Initial troponin 0.465. HEART Score 5. I have given patient sublingual nitroglycerin 0.4 mg once and morphine 2 mg IV once. I am calling ram press operator on-call Dr. Palencia. 04/20/19 22:25 I spoke with OSMEL Umana, on-call cardiology for [facility]. He graciously accepted the patient for transfer, under Dr. Mcnamara, cardiology attending. They are regional diversion so once a bed is available transfer will be initiated. 04/20/19 22:27 04/20/19 23:39 Repeat troponin 1.79. Patient was reporting some chest discomfort so he received another dose of nitroglycerin. 04/21/19 03:44 [facility] arrived and I met them at the bedside and did warm bedside handoff. Patient was sitting comfortably in no acute distress but was complaining of some mild chest pain. Morphine 2 mg IV given just prior to transport. At this time patient is stable and safe to transport to [facility]. - Vital Signs Vital signs: Temp Pulse Resp BP Pulse Ox 97.8 F 91 20 131/56 H 96 04/20/19 18:17 04/20/19 18:17 04/21/19 03:19 04/21/19 03:19 04/20/19 18:17 - Laboratory Result Diagrams: 04/20/19 18:58 04/20/19 18:58 Laboratory results interpreted by me: 04/20/19 04/20/19 04/20/19 18:58 18:58 18:58 RBC 3.99 L Hgb 12.3 L Hct 37.2 L RDW 15.7 H Chloride 94 L Carbon Dioxide 32 H BUN 35 H Creatinine 5.79 H Est GFR ( Amer) 12 L Est GFR (Non-Af Amer) 10 L Glucose 313 H AST 16 L Alkaline Phosphatase 165 H CK-MB (CK-2) 4.78 H Urine Protein Urine Glucose (UA) Urine Blood Ur Leukocyte Esterase 04/20/19 23:15 RBC Hgb Hct RDW Chloride Carbon Dioxide BUN Creatinine Est GFR ( Amer) Est GFR (Non-Af Amer) Glucose AST Alkaline Phosphatase CK-MB (CK-2) Urine Protein >=500 H Urine Glucose (UA) >=500 H Urine Blood SMALL H Ur Leukocyte Esterase LARGE H Discharge - Discharge Clinical Impression: NSTEMI (non-ST elevated myocardial infarction) Chest pain Qualifiers: Chest pain type: unspecified Qualified Code(s): R07.9 - Chest pain, unspecified Condition: Stable Disposition: [facility] Referrals: IGNACIA SHORT MD [Primary Care Provider] - Follow up as needed
[2019-04-20] MEDS ORDERED: HEPARIN SOD (PORCINE) 1,000 UNIT/ML 10 ML VIAL IV ONE (21:00)
[2019-04-20] MEDS ORDERED: HEPARIN SODIUM,PORCINE/D5W 25,000 UNIT/250 ML RTUINJ IV PRN (21:00)
[2019-04-20 21:17] LABS: INTERNATIONAL RATION (INR) 0.91; PROTHROMBIN TIME 12.2 SEC (11.4-15.4)
[2019-04-20 21:18] LABS: PARTIAL THROMBOPLASTIN TIME 30.8 SEC (23.5-35.8)
[2019-04-21 00:01] LABS: APPEARANCE,URINE CLOUDY; BILIRUBIN,URINE NEGATIVE (NEGATIVE); COLOR,URINE YELLOW; GLUCOSE, URINE >=500 mg/dL (NEGATIVE); KETONES,URINE NEGATIVE (NEGATIVE); LEUKOCYTE ESTERASE,URINE LARGE (NEGATIVE); NITRITE,URINE NEGATIVE (NEGATIVE); PROTEIN,URINE >=500 mg/dL (NEGATIVE); URINE SPECIFIC GRAVITY 1.014; UROBILINOGEN,URINE NEGATIVE mg/dL (<2.0)
[2019-04-21] MEDS ORDERED: MORPHINE SULFATE 10 MG/ML INJ IV ONE ×2 (01:30→03:44)
[2019-04-21] MEDS ORDERED: NORMAL SALINE 1000 ML 1,000 ML IV ONE (01:52)
[2019-04-21] MEDS ORDERED: MORPHINE SULFATE 10 MG/ML INJ ONE (03:28)
[2019-04-21 03:41] VITALS: BP 131/56
--- NOTE | 2019-04-22 10:33 | EKG REPORT ---
SEVERITY:- ABNORMAL ECG - SINUS OR ECTOPIC ATRIAL RHYTHM IVCD, CONSIDER ATYPICAL RBBB ANTERIOR [place] AGE INDETERMINATE : Confirmed by: Joellen Palencia 22-Apr-2019 10:33:07
== END 2019-04-21 03:42 | disposition short-term general hospital (02) ==
LOC: ER 17:57
DX: I21.4 Non-ST elevation (NSTEMI) myocardial infarction (principal); R07.9 Chest pain, unspecified; R11.0 Nausea; R14.0 Abdominal distension (gaseous); I12.0 Hypertensive chronic kidney disease with stage 5 chronic kidney disease or end stage renal disease; E11.22 Type 2 diabetes mellitus with diabetic chronic kidney disease; N18.6 End stage renal disease; Z99.2 Dependence on renal dialysis; Z79.4 Long term (current) use of insulin; I25.10 Atherosclerotic heart disease of native coronary artery without angina pectoris; I25.2 Old myocardial infarction; Z95.5 Presence of coronary angioplasty implant and graft; Z88.1 Allergy status to other antibiotic agents; Z88.0 Allergy status to penicillin
CPT/HCPCS: 93005; 96376; 99285; 96375; 96365; 96366; 36415; 82553; 82550; 85025; 85610; 85730; 80053; 81001; 84484; 71045; 93010; J1644 ×2; A9270; J2270 ×2

== ENCOUNTER 2019-04-25 22:19 | Emergency (ER) | payer MEDICARE, OTHER ==
[2019-04-25] MEDS ORDERED: PROMETHAZINE HCL INJ 25 MG/1 ML VIAL ONE (22:46)
[2019-04-25] MEDS ORDERED: PROMETHAZINE HCL INJ 25 MG/1 ML VIAL IV ONE (22:48)
--- NOTE | 2019-04-25 22:49 | ER Document Report ---
ED General - General Chief Complaint: Nausea/Vomiting Stated Complaint: VOMITING Time Seen by Provider: 04/25/19 22:39 Primary Care Provider: IGNACIA SHORT MD [Primary Care Provider] - Follow up as needed Notes: Patient is a 73-year-old male with history of CAD and CHF that presents to the emergency department for chief complaint of nausea, vomiting and fever. Per EMS the patient was altered, pulse ox is 91% upon arrival, but not hypotensive, he was noted to be febrile with a temperature of 101 F, he was given 1000 mg of Tylenol, placed on supplemental oxygen. Patient upon arrival, his LifeVest had went off once, he is complaining of chest pain at this time, but was not having chest pain prior to the LifeVest going off. He is wearing it because he recently had an PR, and is waiting for an AICD placement. Upon seeing the patient, his LifeVest was activating to give a treatment, although on the arjun tor the patient was noted to be in a rapid A. fib, and not in a wide-complex tachycardia. He has had multiple episodes of nausea and vomiting. Denies having any abdominal pain. Past Medical History: End-stage renal disease on dialysis, CHF, CAD, hyperlipidemia, hypertension Past Surgical History: Abdominal surgery, PCI with stenting Social History: Former smoker, former alcohol use, quit many years ago, lives at home Family History: Reviewed and noncontributory for presenting illness Allergies: Reviewed, see documented allergy list. REVIEW OF SYSTEMS: Other than noted above, the 12 point review of systems was reviewed with the patient and were negative, all pertinent findings are included in the HPI. PHYSICAL EXAMINATION: Vital signs reviewed, nursing noted reviewed. GENERAL: Patient is ill-appearing, mottled skin, and appears very anxious, and having rigors HEAD: Atraumatic, normocephalic. EYES: Eyes appear normal, extraocular movements intact, sclera anicteric, conjunctiva are normal. ENT: nares patent, oropharynx clear without exudates. Moist mucous membranes. NECK: Normal range of motion, supple without lymphadenopathy LUNGS: Diminished lung sounds at the bases, clear upper lung sounds. Increased work of breathing. HEART: Heart rate borderline tachycardic, irregular rhythm, atrial fibrillation on telemetry. ABDOMEN: Soft, obese, nontender, normoactive bowel sounds. No rebound, guarding, or rigidity. No masses appreciated. Large ventral hernia noted. EXTREMITIES: Nontender, good range of motion, 2+ edema to the proximal tibias bilaterally NEUROLOGICAL: No focal neurological deficits. Moves all extremities spontaneously Motor and sensory grossly intact on exam. PSYCH: Patient appears rather anxious on exam, slow to answer questions. SKIN: Cool, diaphoretic, skin appears mottled, cap refill is sluggish in the hands and feet. TRAVEL OUTSIDE OF THE [place] IN LAST 30 DAYS: No - Related Data Allergies/Adverse Reactions: doxycycline Allergy (Severe, Verified 04/05/19 06:11) RASH Penicillins Allergy (Mild, Verified 04/05/19 06:11) MILD RASH Iodinated Contrast Media Adverse Reaction (Intermediate, Verified 04/05/19 06:11) RASH, HOT FLUSHED SENSATION iodine Adverse Reaction (Intermediate, Verified 04/05/19 06:11) HOT FLUSHED SENSATION Past Medical History - Social History Smoking Status: Former Smoker Family History: CAD, Hypertension - Past Medical History Cardiac Medical History: Reports: Hx Congestive Heart Failure - diastolic, Hx Coronary Artery Disease, Hx Heart Attack - 2YRS AGO, Hx Hypercholesterolemia, Hx Hypertension - HX OF /NO CURRENT MEDS Denies: Hx DVT, Hx Pulmonary Embolism Pulmonary Medical History: Reports: Hx Sleep Apnea - He is intolerant to wearing CPAP. Denies: Hx Asthma, Hx Bronchitis, Hx COPD, Hx Pneumonia Neurological Medical History: Denies: Hx Cerebrovascular Accident, Hx Migraine, Hx Seizures Endocrine Medical History: Reports: Hx Diabetes Mellitus Type 1, Hx Diabetes Mellitus Type 2. Denies: Hx Hyperthyroidism, Hx Hypothyroidism Renal/ Medical History: Reports: Hx End Stage Renal Disease. Denies: Hx Peritoneal Dialysis Malignancy Medical History: Reports Hx Lymphoma, Reports Hx Prostate Cancer, Reports Hx Skin Cancer GI Medical History: Reports: Hx Gastroesophageal Reflux Disease. Denies: Hx Cirrhosis, Hx Hepatitis, Hx Hiatal Hernia, Hx Ulcer Musculoskeletal Medical History: Reports Hx Arthritis Skin Medical History: Denies Hx Eczema, Denies Hx Psoriasis Psychiatric Medical History: Reports: Hx Depression, Hx Post Traumatic Stress Disorder Infectious Medical History: Reports: Hx MRSA. Denies: Hx Hepatitis Past Surgical History: Reports: Hx Cardiac Catheterization, Hx Coronary Stent, Hx Genitourinary Surgery - Prostate removed, Hx Orthopedic Surgery - He has had C-spine surgery, and low back surgery., Hx Urinary Tract Surgery - bladder, Hx Vascular Surgery - left upper arm dialysis fistula, Other - Excision of skin cancers,Total prostatectomy,Bladder surgery 3,Lipoma surg. Denies: Hx Open Heart Surgery, Hx Pacemaker - Immunizations Hx Diphtheria, Pertussis, Tetanus Vaccination: Yes Hx Pneumococcal Vaccination: 06/06/11 Physical Exam - Vital signs Vitals: Temp 104.9 F H 04/26/19 00:34 Course - Re-evaluation Re-evalutation: Patient seen and examined vital signs reviewed. Laboratory data and imaging were ordered as appropriate for the patient's presenting symptoms and complaint, with consideration of any critical or life threatening conditions that may be associated with their obtained history and exam as noted above. Patient was treated with cefepime, vancomycin, Phenergan and Zofran for nausea Results were reviewed when available and demonstrated no leukocytosis, but did have shift toward neutrophils, patient had elevated BUN/creatinine, to be expected for end-stage renal patient, his electrolytes were unremarkable, his lactate was elevated at 4.1, concerning for poor peripheral perfusion, I am concerned that this patient is having high output heart failure, he has an elevated troponin of greater than 2, difficult to say whether this is downtrending, given that the patient had a recent STEMI, or whether he is having a new non-STEMI. His EKG did not demonstrate ST elevation, but did have some T wave inversions. Patient is persisting to have a fever, he was given IV Tylenol, 1000 mg, his fever went up to 104.9. Etiology of fever is unclear at this time, therefore he was given broad-spectrum antibiotics including cefepime and vancomycin. Patient had a penicillin allergy. The patient was re-evaluated and was still breathing heavily, as noted was febr ile, but blood pressure was remaining stable, he did appear improved, after receiving the IV acetaminophen. Evaluation was most consistent with sepsis, elevated lactic acid, metabolic acidosis, fever of unknown origin, and STEMI, high-output heart failure Results were discussed with the patient at this point after careful consideration I feel that that patient should be transferred to [facility] due to need for cardiac ICU, and critical care management, discussed the case with Dr. Gallardo, who graciously accepted the patient to their institution. This was discussed with the patient and his that it is in the best interest for their care to be transferred, the risks and benefits of transfer were discussed, including but not limited to clinical deterioration during transport, respiratory distress, and potential for traumatic injuries. Patient agreed with this plan of care. *Note is created using voice recognition software and may contain spelling, syntax or grammatical errors. 04/26/19 01:15 Patient seen and examined, prior to transport, air transport team had arrived, and transfer of care given. Patient is hemodynamically stable for transport at this time. Laboratory 04/25/19 04/25/19 04/25/19 22:51 22:51 22:51 WBC 9.0 RBC 3.79 L Hgb 11.6 L Hct 35.5 L MCV 94 MCH 30.6 MCHC 32.8 RDW 15.2 H Plt Count 291 Seg Neutrophils % 85.4 H Lymphocytes % 7.5 L Monocytes % 6.6 Eosinophils % 0.1 Basophils % 0.4 Absolute Neutrophils 7.7 Absolute Lymphocytes 0.7 Absolute Monocytes 0.6 Absolute Eosinophils 0.0 Absolute Basophils 0.0 PT 13.7 INR 1.05 VBG pH VBG pCO2 VBG HCO3 VBG Base Excess Sodium 139.2 Potassium 4.3 Chloride 98 Carbon Dioxide 25 Anion Gap 16 BUN 48 H Creatinine 6.34 H Est GFR ( Amer) 10 L Est GFR (Non-Af Amer) 9 L Glucose 199 H Lactic Acid Calcium 8.8 Total Bilirubin 0.7 Direct Bilirubin 0.5 H Neonat Total Bilirubin Not Reportable Neonat Direct Bilirubin Not Reportable Neonat Indirect Bili Not Reportable AST 21 ALT 15 Alkaline Phosphatase 123 Troponin I Total Protein 7.0 Albumin 3.7 04/25/19 04/25/19 04/25/19 22:51 22:51 22:51 WBC RBC Hgb Hct MCV MCH MCHC RDW Plt Count Seg Neutrophils % Lymphocytes % Monocytes % Eosinophils % Basophils % Absolute Neutrophils Absolute Lymphocytes Absolute Monocytes Absolute Eosinophils Absolute Basophils PT INR VBG pH 7.41 VBG pCO2 38.0 VBG HCO3 23.4 VBG Base Excess -1.0 Sodium Potassium Chloride Carbon Dioxide Anion Gap BUN Creatinine Est GFR ( Amer) Est GFR (Non-Af Amer) Glucose Lactic Acid 4.1 H Calcium Total Bilirubin Direct Bilirubin Neonat Total Bilirubin Neonat Direct Bilirubin Neonat Indirect Bili AST ALT Alkaline Phosphatase Troponin I 2.460 Total Protein Albumin Chest X-Ray 04/25/19 22:40 IMPRESSION: 1. No acute cardiopulmonary abnormalities. 2. Nonspecific abdominal bowel gas pattern. 3. Inspissated fecal content may reflect fecal steatosis or constipation. 4. 2.2 cm opacity of the RIGHT upper lobe suggestive of pulmonary nodule, stable since examination dated 04/13/2016 when accounting for differences in modality. copyright 2010 [employer]- All Rights Reserved KUB X-Ray 04/25/19 22:55 IMPRESSION: 1. No acute cardiopulmonary abnormalities. 2. Nonspecific abdominal bowel gas pattern. 3. Inspissated fecal content may reflect fecal steatosis or constipation. 4. 2.2 cm opacity of the RIGHT upper lobe suggestive of pulmonary nodule, stable since examination dated 04/13/2016 when accounting for differences in modality. copyright 2010 [employer]- All Rights Reserved - Vital Signs Vital signs: Temp Pulse Resp BP Pulse Ox 104.9 F H 04/26/19 00:34 - Laboratory Result Diagrams: 04/25/19 22:51 04/25/19 22:51 Laboratory results interpreted by me: 04/25/19 04/25/19 04/25/19 22:51 22:51 22:51 RBC 3.79 L Hgb 11.6 L Hct 35.5 L RDW 15.2 H Seg Neutrophils % 85.4 H Lymphocytes % 7.5 L BUN 48 H Creatinine 6.34 H Est GFR ( Amer) 10 L Est GFR (Non-Af Amer) 9 L Glucose 199 H Lactic Acid 4.1 H Direct Bilirubin 0.5 H - EKG Interpretation by Me Additional EKG results interpreted by me: EKG demonstrates atrial fibrillation with a ventricular rate of 98 bpm, presence of right bundle branch block and left posterior fascicular block, slight right axis deviation, QTC 486 ms, there is T wave inversion noted in lead V2, no ST elevation. Critical Care Note - Critical Care Note Total time excluding time spent on procedures (mins): 40 Comments: Critical care time 40 minutes exclusive from separate billable procedures for a patient requiring complex medical decision making, and high potential for clinical deterioration. In a patient presenting with sepsis, concern for high-output heart failure and non-STEMI. Time spent obtaining history from patient or surrogate, discussions with consultants, development of treatment plan with patient or surrogate, evaluation of patient's response to treatment, examination of patient, ordering and performing treatments and interventions, ordering and review of laboratory studies, re-evaluation of patient's condition, ordering and review of radiographic studies and review of old charts Discharge - Discharge Clinical Impression: NSTEMI (non-ST elevated myocardial infarction), High output heart failure, Fever of unknown origin Sepsis Qualifiers: Sepsis type: sepsis due to unspecified organism Sepsis acute organ dysfunction status: unspecified Qualified Code(s): A41.9 - Sepsis, unspecified organism Nausea and vomiting Qualifiers: Vomiting type: unspecified Vomiting Intractability: unspecified Qualified Code(s): R11.2 - Nausea with vomiting, unspecified Condition: Serious Disposition: [facility] Referrals: IGNACIA SHORT MD [Primary Care Provider] - Follow up as needed
[2019-04-25] MEDS ORDERED: CEFEPIME 1 GM/D5W RTU 1 GM/50 ML RTUPB IV SCH (23:00)
[2019-04-25 23:08] LABS: ABSOLUTE LYMPHOCYTES (AUTO) 0.7 10^3/uL (0.5-4.7); ABSOLUTE MONOCYTES (AUTO) 0.6 10^3/uL (0.1-1.4); ABSOLUTE NEUT (AUTO) 7.7 10^3/uL (1.7-8.2); BASOPHILS % (AUTO) 0.4 % (0-2); EOSINOPHILS % (AUTO) 0.1 % (0-6); HEMATOCRIT 35.5 % (37.9-51.0); HEMOGLOBIN 11.6 g/dL (13.5-17.0); LYMPHOCYTES % (AUTO) 7.5 % (13-45); MEAN CORPUSCULAR HEMOGLOBIN 30.6 pg (27.0-33.4); MEAN CORPUSCULAR HGB CONC 32.8 g/dL (32.0-36.0); MEAN CORPUSCULAR VOLUME 94 fl (80-97); MONOCYTES % (AUTO) 6.6 % (3-13); PLATELET COUNT 291 10^3/uL (150-450); RED BLOOD COUNT 3.79 10^6/uL (4.35-5.55); RED CELL DISTRIBUTION WIDTH 15.2 % (11.5-14.0); SEGMENTED NEUTROPHILS % (AUTO) 85.4 % (42-78); TOTAL CELLS COUNTED % (AUTO) 100 %
[2019-04-25 23:11] LABS: INTERNATIONAL RATION (INR) 1.05; PROTHROMBIN TIME 13.7 SEC (11.4-15.4)
[2019-04-25 23:19] LABS: VENOUS BLOOD HCO3 23.4 mmol/L (20-32); VENOUS BLOOD PH 7.41 (7.30-7.42)
[2019-04-25 23:25] LABS: ALBUMIN 3.7 g/dL (3.5-5.0); ALKALINE PHOSPHATASE 123 U/L (38-126); ANION GAP 16 (5-19); ASPARTATE AMINO TRANSFERASE 21 U/L (17-59); BILIRUBIN,DIRECT 0.5 mg/dL (0.0-0.4); BILIRUBIN,TOTAL 0.7 mg/dL (0.2-1.3); BLOOD UREA NITROGEN 48 mg/dL (7-20); CALCIUM 8.8 mg/dL (8.4-10.2); CARBON DIOXIDE 25 mmol/L (22-30); CHLORIDE 98 mmol/L (98-107); GLUCOSE 199 mg/dL (75-110); POTASSIUM 4.3 mmol/L (3.6-5.0)
--- NOTE | 2019-04-25 23:49 | RADIOLOGY REPORT (SQ) ---
EXAM DESCRIPTION: XR ABDOMEN 1 VIEW (KUB), XR CHEST 1 VIEW COMPLETED DATE/TME: 04/25/2019 22:55 (accession [id number]), 04/25/2019 22:40 (accession [id number]) CLINICAL HISTORY: 73 years, Male, nausea and vomiting COMPARISON: 04/20/[address] chest 04/13/2016. NUMBER OF VIEWS: 3 TECHNIQUE: Single view, PA chest was obtained. Two views of the abdomen were obtained in upright and supine positioning. LIMITATIONS: Battery pack. RIGHT flank are not included in the [id number] of the examination. FINDINGS: Chest: Stable prominent cardiac and mediastinal silhouette. Heart size is enlarged. Multiple battery packs overlying the chest. Low lung volumes grossly clear without focal opacity, pneumothorax or pleural effusions. Reidentification of RIGHT upper lobe opacity measuring 2.2 cm concerning for pulmonary nodule. The visualized bones are within normal limits. Abdomen: Gas is seen within normal caliber large bowel. Inspissated fecal content may reflect fecal steatosis or constipation. Diffuse paucity of small bowel gas. No free air is identified. There are no abnormal calcifications. The osseous structures reveal degenerative change and postoperative change of the lower lumbar spine. The midline sacrum is not visualized secondary to overlying bowel content. IMPRESSION: 1. No acute cardiopulmonary abnormalities. 2. Nonspecific abdominal bowel gas pattern. 3. Inspissated fecal content may reflect fecal steatosis or constipation. 4. 2.2 cm opacity of the RIGHT upper lobe suggestive of pulmonary nodule, stable since examination dated 04/13/2016 when accounting for differences in modality. copyright 2010 [employer]- All Rights Reserved
--- NOTE | 2019-04-25 23:49 | RADIOLOGY REPORT (SQ) ---
EXAM DESCRIPTION: XR ABDOMEN 1 VIEW (KUB), XR CHEST 1 VIEW COMPLETED DATE/TME: 04/25/2019 22:55 (accession [id number]), 04/25/2019 22:40 (accession [id number]) CLINICAL HISTORY: 73 years, Male, nausea and vomiting COMPARISON: 04/20/[address] chest 04/13/2016. NUMBER OF VIEWS: 3 TECHNIQUE: Single view, PA chest was obtained. Two views of the abdomen were obtained in upright and supine positioning. LIMITATIONS: Battery pack. RIGHT flank are not included in the [id number] of the examination. FINDINGS: Chest: Stable prominent cardiac and mediastinal silhouette. Heart size is enlarged. Multiple battery packs overlying the chest. Low lung volumes grossly clear without focal opacity, pneumothorax or pleural effusions. Reidentification of RIGHT upper lobe opacity measuring 2.2 cm concerning for pulmonary nodule. The visualized bones are within normal limits. Abdomen: Gas is seen within normal caliber large bowel. Inspissated fecal content may reflect fecal steatosis or constipation. Diffuse paucity of small bowel gas. No free air is identified. There are no abnormal calcifications. The osseous structures reveal degenerative change and postoperative change of the lower lumbar spine. The midline sacrum is not visualized secondary to overlying bowel content. IMPRESSION: 1. No acute cardiopulmonary abnormalities. 2. Nonspecific abdominal bowel gas pattern. 3. Inspissated fecal content may reflect fecal steatosis or constipation. 4. 2.2 cm opacity of the RIGHT upper lobe suggestive of pulmonary nodule, stable since examination dated 04/13/2016 when accounting for differences in modality. copyright 2010 [employer]- All Rights Reserved
[2019-04-26] MEDS ORDERED: VANCOMYCIN HCL INJ 1000 MG VIAL IV ONE (00:13)
[2019-04-26] MEDS ORDERED: ASPIRIN 81 MG TABLET, CHEWABLE PO ONE (00:30)
[2019-04-26] MEDS ORDERED: ONDANSETRON HCL INJ/PF 4 MG/2 ML SDV IV ONE (00:30)
[2019-04-26] MEDS ORDERED: ACETAMINOPHEN 1,000 MG/100 ML RTUPB IV ONE (00:34)
[2019-04-26 02:24] VITALS: BP 164/60
--- NOTE | 2019-04-26 17:39 | EKG REPORT ---
SEVERITY:- ABNORMAL ECG - ATRIAL FIBRILLATION RBBB AND LPFB CONSIDER ANTERIOR INFARCT : Confirmed by: Adore Hoffman MD 26-Apr-2019 17:38:42
== END 2019-04-26 01:40 | disposition short-term general hospital (02) ==
LOC: ER 22:19
DX: A41.9 Sepsis, unspecified organism (principal); I13.2 Hypertensive heart and chronic kidney disease with heart failure and with stage 5 chronic kidney disease, or end stage renal disease; E11.22 Type 2 diabetes mellitus with diabetic chronic kidney disease; N18.6 End stage renal disease; I50.83 High output heart failure; Z99.2 Dependence on renal dialysis; I21.4 Non-ST elevation (NSTEMI) myocardial infarction; I48.91 Unspecified atrial fibrillation; I45.2 Bifascicular block; R50.9 Fever, unspecified; R11.2 Nausea with vomiting, unspecified; I25.10 Atherosclerotic heart disease of native coronary artery without angina pectoris; Z95.811 Presence of heart assist device; Z87.891 Personal history of nicotine dependence; Z88.1 Allergy status to other antibiotic agents; Z88.0 Allergy status to penicillin; Z82.49 Family history of ischemic heart disease and other diseases of the circulatory system
CPT/HCPCS: 93005; 36415; 87040; 85025; 85610; 87077; 80053; 84484; 82803; 83605; 71045; 74018; 93010; J2550; J2405; J3370; J0692; J0131; 96365; 96367; 96368; 96375; 99291